=== PATIENT | male | born 1960 ===

== ENCOUNTER 2017-04-29 19:35 | Emergency (ER) | payer MEDICARE, MEDICAID ==
[2017-04-29 19:35] VITALS: BMI 34.9
[2017-04-29 19:48] VITALS: RESP 17; TEMP 97.8; O2SAT 100
--- NOTE | 2017-04-29 20:23 | ED PDOC ---
Lower Extremity Pain/Injury Time Seen by Provider: 04/29/17 20:13 Chief Complaint (Nursing): Lower Extremity Problem/Injury Chief Complaint (Provider): Toe pain and "passed out" History Per: Patient Additional Complaint(s): 56yo M with PMHx ESRD, HTN, HLD, right foot ulcer, recurrent DVT presents to ED for evaluation of right toe stump pain and bleeding s/p a near syncopal episode. Pt reports he felt very weak and almost passed out. Pt notes that he never lost consciousness and did not fall to floor, but he struck his toe against table leg. pt underwent right great toe amputation 3 months ago, site started bleeding. Pt at this time appears pale, reports mild dizziness. No chest pain or SOB Currently on Levemir 32u BID and Humalog 22u ACTID. HD with left AV fistula T/ / at Dialysis center in [place]. PMHx: as above FHx: DM SHx: toe amputation 2011, angioplasty 2014 Social hx: denies smoking, EtOH, drugs Allergies: NKDA PMD: Clinic Follows with podiatry Dr. Delacruz at [place] Follows with Nephrology Dr. Nick Past Medical History Reviewed: Historical Data, Nursing Documentation, Vital Signs Vital Signs: Last Vital Signs Temp 97.8 F 04/29/17 19:39 Pulse 84 04/29/17 19:39 Resp 17 04/29/17 19:39 BP 85/33 L 04/29/17 19:39 Pulse Ox 100 04/29/17 19:39 - Medical History PMH: Anemia, Diabetes (type I and II), Deep Vein Thrombosis, HTN, Hypercholesterolemia, Chronic Kidney Disease - Surgical History Other surgeries: right great toe amputation, left 5th toe amputation - Family History Family History: States: Unknown Family Hx, Diabetes - Living Arrangements Living Arrangements: Alone - Social History Current smoker - smoking cessation education provided: No Alcohol: None Drugs: Denies - Home Medications Home Medications: Ambulatory Orders Medication Instructions Recorded Brimonidine 0.2% [Alphagan 0.2% 1 drop EACHEYE TID 03/24/16 Opht] Latanoprost [Xalatan] 1 drop EACHEYE HS 03/24/16 amLODIPine [Norvasc] 10 mg PO DAILY 03/24/16 Atorvastatin [Lipitor] 80 mg PO HS 01/31/17 B Complex W-C No.20/Folic Acid 1 cap PO DAILY 01/31/17 [Nephrocaps Softgel] Dorzolamide 2%/Timolol 0.5% 1 drop EACHEYE BID 01/31/17 [Cosopt 2%-0.5% Opht] Etyll-2-Rtyp Ethyl Esters 1 GM 1 gm PO QID 01/31/17 [Lovaza] Sevelamer Carbonate [Renvela] 2,400 mg PO TID 01/31/17 Torsemide [Demadex] 5 mg PO DAILY 01/31/17 acetaZOLAMIDE [Diamox 250 mg Tab] 250 mg PO BID 01/31/17 Apixaban [Eliquis] 5 mg PO BID #60 tab 02/09/17 Clopidogrel [Plavix] 75 mg PO DAILY #30 tab 02/09/17 Insulin Detemir [Levemir] 20 units SC AMHS vial 02/09/17 Insulin Lispro [humALOG] 10 unit SC ACTID #0 02/09/17 Lactobacillus Acidophilus [Bacid 1 cap PO BID cap 02/09/17 Acidophilus] - Allergies Allergies/Adverse Reactions: Allergies Allergy/AdvReac Type Severity Reaction Status Date / Time No Known Allergies Allergy Verified 04/29/17 19:48 Review of Systems ROS Statement: Except As Marked, All Systems Reviewed And Found Negative Constitutional: Positive for: Weakness Neurological: Positive for: Dizziness Physical Exam - Reviewed Nursing Documentation Reviewed: Yes Vital Signs Reviewed: Yes - Physical Exam Appears: Positive for: Well, Non-toxic, No Acute Distress Head Exam: Positive for: ATRAUMATIC, NORMAL INSPECTION, NORMOCEPHALIC Skin: Positive for: Normal Color, Warm, DRY Eye Exam: Positive for: EOMI, Normal appearance, PERRL ENT: Positive for: Normal ENT Inspection Neck: Positive for: Normal, Painless ROM Cardiovascular/Chest: Positive for: Regular Rate, Rhythm Respiratory: Positive for: CNT, Normal Breath Sounds Gastrointestinal/Abdominal: Positive for: Normal Exam, Bowel Sounds, Soft Back: Positive for: Normal Inspection Extremity: Positive for: Other (right great toe amputated, stup witrhout any active bleeding at this time. no laceration noted. no abrasion. ) Neurologic/Psych: Positive for: Alert, Oriented - Laboratory Results Result Diagrams: 04/29/17 20:34 04/29/17 20:34 - ECG O2 Sat by Pulse Oximetry: 100 Medical Decision Making Medical Decision Making: Pt placed on skein winder. P: 78 BP: 138/83 EKG interpreted and cleared by ED MD Diagnostics ordered Labs resulted and reviewed with Pt who demonstrated full understanding. Tele-obs advised; however, Pt declined. Pt reports feeling well and would like to go home. Pt advised that further evaluation of near syncopal episode would be beneficial ; however, Pt again declined. Pt made aware of dangers of going home at this time and agreed to sign out AMA Disposition - Clinical Impression Clinical Impression: Near syncope - Patient ED Disposition Is Patient to be Admitted: No - Disposition Disposition: Against Medical Advice Disposition Time: 01:30 Condition: FAIR Instructions: Near Syncope (ED) Forms: [facility] (Ecuadorean), [facility] ED AMA
[2017-04-29 21:10] LABS: BASO # 0.1 K/uL (0.0-0.2); BASO % 0.6 % (0.0-2.0); EOS # 0.2 K/uL (0.0-0.7); EOS % 1.9 % (0.0-4.0); HEMOGLOBIN 9.9 g/dL (12.0-18.0); LYMPH # 2.8 K/uL (1.0-4.3); LYMPH % 25.6 % (20.0-40.0); MEAN CELL VOLUME 86.4 fl (80.0-94.0); MEAN CORPUSCULAR HEMOGLOBIN 27.3 pg (27.0-31.0); MEAN CORPUSCULAR HGB CONC 31.5 g/dL (33.0-37.0); MEAN PLATELET VOLUME 9.6 fl (7.2-11.7); MONO # 0.9 K/uL (0.0-0.8); MONO % 8.3 % (0.0-10.0); NEUT % 63.6 % (50.0-75.0); NRBC % 0.2 % (0.0-0.0); RBC 3.64 Mil/uL (4.40-5.90); RED CELL DISTRIBUTION WIDTH 17.2 % (11.5-14.5)
[2017-04-29 21:27] LABS: ALB/GLOB RATIO 1.2 (1.0-2.1); ALBUMIN 4.5 g/dL (3.5-5.0); CALCIUM 8.3 mg/dL (8.4-10.2)
[2017-04-29 21:34] LABS: TROPONIN I 0.021 ng/mL (0.00-0.120)
[2017-04-30 00:19] VITALS: BP 138/83; PULSE 78
--- NOTE | 2017-04-30 08:34 | RAD ---
PROCEDURE: CHEST RADIOGRAPH, 1 VIEW HISTORY: med screening COMPARISON: Frontal chest radiograph 01/31/2017 FINDINGS: LUNGS: Inspiratory volume appears diminished. This appears to result in crowding of the right medial basilar bronchovascular markings with no definitive infiltrate appreciated bilaterally. PLEURA: No pneumothorax or pleural fluid seen. CARDIOVASCULAR: Normal. OSSEOUS STRUCTURES: No significant abnormalities. VISUALIZED UPPER ABDOMEN: Normal. OTHER FINDINGS: None. IMPRESSION: Diminished inspiratory volumes with medial basilar bronchovascular [place] crowding at right. No definitive infiltrate or pleural effusion. Examination otherwise stable in the interval.
--- NOTE | 2017-04-30 18:25 | CARD ---
APPROVED REPORT EKG Measurement Heart [id number] <Conclusion> Normal sinus rhythm Normal ECG
== END 2017-04-30 00:19 | disposition home or self-care (01) ==
LOC: H.ER 19:35
DX: M79.674 Pain in right toe(s) (principal); I12.9 Hypertensive chronic kidney disease with stage 1 through stage 4 chronic kidney disease, or unspecified chronic kidney disease; Z79.01 Long term (current) use of anticoagulants; Z79.4 Long term (current) use of insulin; Z86.718 Personal history of other venous thrombosis and embolism; Z89.411 Acquired absence of right great toe; R42 Dizziness and giddiness; E78.00 Pure hypercholesterolemia, unspecified

== ENCOUNTER 2017-05-05 15:13 | Emergency (ER) | payer MEDICARE, MEDICAID ==
[2017-05-05 15:13] VITALS: BMI 34.9
[2017-05-05 15:42] VITALS: O2SAT 98
--- NOTE | 2017-05-05 16:19 | ED PDOC ---
Syncope/Near Syncope/Dizziness Time Seen by Provider: 05/05/17 15:37 Chief Complaint (Nursing): Weakness/Neurological Deficit Chief Complaint (Provider): weakness History Per: Patient Additional Complaint(s): 56yo M with PMHx ESRD, HTN, HLD, right foot ulcer, recurrent DVT presents to ED for evaluation of right toe stump pain and bleeding s/p a near syncopal episode. Pt reports he felt very weak and almost passed out. Pt notes that he never lost consciousness and did not fall to floor, but he struck his toe against table leg. pt underwent right great toe amputation 3 months ago, site started bleeding. Pt at this time appears pale, reports mild dizziness. No chest pain or SOB Currently on Levemir 32u BID and Humalog 22u ACTID. HD with left AV fistula T/ / at Dialysis center in [place]. PMHx: as above FHx: DM SHx: toe amputation 2011, angioplasty 2014 Social hx: denies smoking, EtOH, drugs Allergies: NKDA PMD: Clinic Follows with podiatry Dr. Delacruz at [facility] Follows with Nephrology Dr. Nick referred by PMD for body weakness. low hgb 7.7 05/03/17.pt had dialysis today . diayllar[facility] bird-sat. Past Medical History Reviewed: Historical Data, Nursing Documentation, Vital Signs Vital Signs: Last Vital Signs Temp 99.1 F 05/05/17 15:39 Pulse 96 H 05/05/17 15:39 Resp 22 05/05/17 15:39 BP 95/62 L 05/05/17 15:39 Pulse Ox 98 05/05/17 15:39 - Medical History PMH: Anemia, Diabetes (type I and II), Deep Vein Thrombosis, HTN, Hypercholesterolemia, Chronic Kidney Disease - Family History Family History: States: Unknown Family Hx, Diabetes - Living Arrangements Living Arrangements: With Family - Social History Current smoker - smoking cessation education provided: No Ex-Smoker (has not smoked in the last 12 months): Yes Alcohol: None Drugs: Denies - Home Medications Home Medications: Ambulatory Orders Medication Instructions Recorded Brimonidine 0.2% [Alphagan 0.2% 1 drop EACHEYE TID 03/24/16 Opht] Latanoprost [Xalatan] 1 drop EACHEYE HS 03/24/16 Dorzolamide 2%/Timolol 0.5% 1 drop EACHEYE BID 01/31/17 [Cosopt 2%-0.5% Opht] Torsemide [Demadex] 5 mg PO DAILY 01/31/17 Apixaban [Eliquis] 2.5 mg PO BID 05/05/17 Atorvastatin [Lipitor] 20 mg PO HS 05/05/17 B Complex W-C No.20/Folic Acid 1 mg PO DAILY 05/05/17 [Virt-Caps Softgel] Calcium Acetate [Phoslo] 1 tab PO TID 05/05/17 Carvedilol [Coreg] 12.5 mg PO DAILY 05/05/17 Clopidogrel [Plavix] 75 mg PO DAILY 05/05/17 Insulin Aspart [Novolog Flexpen] 10 units SC TID 05/05/17 Insulin Detemir [Levemir] 20 units SC BID 05/05/17 [place]-3 Fatty Acids/Fish Oil [Eql 2 cap PO BID 05/05/17 [place]-3 Fish Oil 1,000 mg] Sevelamer Carbonate [Renvela] 2 tab PO TID 05/05/17 Sodium Bicarbonate Tab [Sodium 650 mg PO TID 05/05/17 Bicarbonate Tab] amLODIPine [Norvasc] 2.5 mg PO DAILY 05/05/17 - Allergies Allergies/Adverse Reactions: Allergies Allergy/AdvReac Type Severity Reaction Status Date / Time No Known Allergies Allergy Verified 04/29/17 19:48 Review of Systems ROS Statement: Except As Marked, All Systems Reviewed And Found Negative Neurological: Positive for: Dizziness Physical Exam - Reviewed Nursing Documentation Reviewed: Yes Vital Signs Reviewed: Yes - Physical Exam Appears: Positive for: Well, Non-toxic, No Acute Distress Head Exam: Positive for: ATRAUMATIC, NORMAL INSPECTION, NORMOCEPHALIC Skin: Positive for: Normal Color, Warm, DRY Eye Exam: Positive for: EOMI, Normal appearance, PERRL ENT: Positive for: Normal ENT Inspection Neck: Positive for: Normal, Painless ROM Cardiovascular/Chest: Positive for: Regular Rate, Rhythm Respiratory: Positive for: CNT, Normal Breath Sounds Gastrointestinal/Abdominal: Positive for: Normal Exam, Bowel Sounds, Soft Back: Positive for: Normal Inspection Extremity: Positive for: Normal ROM Neurologic/Psych: Positive for: Alert, Oriented - Laboratory Results Result Diagrams: 05/05/17 17:00 05/05/17 17:00 - ECG O2 Sat by Pulse Oximetry: 98 Medical Decision Making Medical Decision Making: Pt placed on cardiac moitor. labs resulted and reviewed with Pt who demonstrated full understanding. Pt reprots feeling well and asking to go home at this time Spoke to Dr. Godinez, who agreed Pt can be discharge with hgb 8.4 Disposition - Clinical Impression Clinical Impression: Anemia - Patient ED Disposition Is Patient to be Admitted: No - Disposition Disposition: Routine/Home Disposition Time: 17:00 Condition: STABLE Instructions: Anemia (ED) Forms: [facility] (Cape Verdean)
[2017-05-05 17:18] LABS: BASO # 0.1 K/uL (0.0-0.2); BASO % 0.5 % (0.0-2.0); EOS # 0.2 K/uL (0.0-0.7); HEMOGLOBIN 8.4 g/dL (12.0-18.0); LYMPH # 2.2 K/uL (1.0-4.3); LYMPH % 20.8 % (20.0-40.0); MEAN CELL VOLUME 89.2 fl (80.0-94.0); MEAN CORPUSCULAR HGB CONC 33.7 g/dL (33.0-37.0); MEAN PLATELET VOLUME 8.6 fl (7.2-11.7); MONO % 9.9 % (0.0-10.0); NEUT # 6.9 K/uL (1.8-7.0); NEUT % 66.8 % (50.0-75.0); RBC 2.81 Mil/uL (4.40-5.90); WHITE BLOOD COUNT 10.4 K/uL (4.8-10.8)
[2017-05-05 17:31] LABS: ALB/GLOB RATIO 1.1 (1.0-2.1); ALBUMIN 4.2 g/dL (3.5-5.0); BLOOD UREA NITROGEN 32 mg/dl (9-20); CALCIUM 8.8 mg/dL (8.4-10.2); GFR AFRICAN-AMERICAN 10; GFR NON-AFRICAN AMERICAN 8
[2017-05-05 17:32] LABS: ALT/SGPT 23 U/L (21-72); AST/SGOT 19 U/L (17-59)
[2017-05-05 17:57] LABS: PARTIAL THROMBOPLASTIN TIME 28.5 Seconds (25.6-37.1)
[2017-05-05 19:15] VITALS: BP 120/78; PULSE 78; RESP 18; TEMP 98
[2017-05-05 21:45] LABS: INR 0.92 (0.92-1.08); PROTHROMBIN TIME 10.3 SECONDS (9.7-12.2)
--- NOTE | 2017-05-06 09:40 | RAD ---
PROCEDURE: CHEST RADIOGRAPH, 1 VIEW HISTORY: med screening COMPARISON: Comparison chest 04/29/2017 FINDINGS: LUNGS: Poor inspiration with low lung volumes, crowded bronchovascular markings and mild bibasilar atelectasis. PLEURA: No pneumothorax or pleural fluid seen. CARDIOVASCULAR: Normal. OSSEOUS STRUCTURES: No significant abnormalities. VISUALIZED UPPER ABDOMEN: Normal. OTHER FINDINGS: None. IMPRESSION: Poor inspiration with low lung volumes, crowded bronchovascular markings and mild bibasilar atelectasis.
--- NOTE | 2017-05-07 13:01 | CARD ---
APPROVED REPORT EKG Measurement Heart [id number] <Conclusion> Normal sinus rhythm Normal ECG
== END 2017-05-05 19:15 | disposition home or self-care (01) ==
LOC: H.ER 15:13
DX: D64.9 Anemia, unspecified (principal); I12.9 Hypertensive chronic kidney disease with stage 1 through stage 4 chronic kidney disease, or unspecified chronic kidney disease; N18.9 Chronic kidney disease, unspecified; Z86.718 Personal history of other venous thrombosis and embolism; Z87.891 Personal history of nicotine dependence; Z79.4 Long term (current) use of insulin; E78.00 Pure hypercholesterolemia, unspecified; Z79.01 Long term (current) use of anticoagulants

== ENCOUNTER 2018-01-17 15:16 | Inpatient (IN) | payer MEDICARE, MEDICAID ==
[2018-01-17 15:16] VITALS: BMI 34.9
--- NOTE | 2018-01-17 16:52 | ED PDOC ---
Syncope/Near Syncope/Dizziness Time Seen by Provider: 01/17/18 15:45 Chief Complaint (Nursing): Dizziness/Lightheaded Chief Complaint (Provider): Weakness History Per: Patient, Family History/Exam Limitations: no limitations Onset/Duration Of Symptoms: Days (2) Current Symptoms Are (Timing): Still Present Additional Complaint(s): 57yo male, with history of diabetes, ESRD and on dialysis (, and ), hypertension, and high cholesterol, comes to ER accompanied by his for evaluation of "being unable to walk." Per , 2 days ago, while at dinner, she noted the patient "was not there" and seemed confused; patient states he had multiple episodes of vomiting that day as well. states the patient urinated on himself today and states he is unwell. Patient was able to complete his dialysis session today. Otherwise, no fever, chills, or head injury. no seizure like activity. PMD: [facility] Past Medical History Reviewed: Historical Data, Nursing Documentation, Vital Signs Vital Signs: Last Vital Signs Temp 98.3 F 01/17/18 15:52 Pulse 84 01/17/18 15:52 Resp 16 01/17/18 15:52 BP 135/83 01/17/18 15:52 Pulse Ox 96 01/17/18 15:52 - Medical History PMH: Anemia, Diabetes (type I and II), Deep Vein Thrombosis, HTN, Hypercholesterolemia, Chronic Kidney Disease - Surgical History Surgical History: No Surg Hx - Family History Family History: States: Unknown Family Hx, Diabetes - Social History Current smoker - smoking cessation education provided: No Alcohol: None Drugs: Denies - Home Medications Home Medications: Ambulatory Orders Medication Instructions Recorded RX: Brimonidine 0.2% [Alphagan 1 drop EACHEYE TID 03/24/16 0.2% Opht] RX: Latanoprost [Xalatan] 1 drop EACHEYE HS 03/24/16 RX: Dorzolamide 2%/Timolol 0.5% 1 drop EACHEYE BID 01/31/17 [Cosopt 2%-0.5% Opht] RX: Torsemide [Demadex] 5 mg PO DAILY 01/31/17 Apixaban [Eliquis] 2.5 mg PO BID 05/05/17 Atorvastatin [Lipitor] 20 mg PO HS 05/05/17 B Complex W-C No.20/Folic Acid 1 mg PO DAILY 05/05/17 [Virt-Caps Softgel] Carvedilol [Coreg] 12.5 mg PO DAILY 05/05/17 Clopidogrel [Plavix] 75 mg PO DAILY 05/05/17 Insulin Aspart [Novolog Flexpen] 10 units SC TID 05/05/17 [place]-3 Fatty Acids/Fish Oil [Eql 2 cap PO BID 05/05/17 [place]-3 Fish Oil 1,000 mg] RX: Calcium Acetate [Phoslo] 1 tab PO TID 05/05/17 RX: Insulin Detemir [Levemir] 20 units SC BID 05/05/17 Sevelamer Carbonate [Renvela] 2 tab PO TID 05/05/17 Sodium Bicarbonate Tab 650 mg PO TID 05/05/17 amLODIPine [Norvasc] 2.5 mg PO DAILY 05/05/17 Apixaban [Eliquis] 5 mg PO Q12 01/17/18 B Complex W-C No.20/Folic Acid 40 mg PO DAILY 01/17/18 [Renal Caps Softgel] Carvedilol [Coreg] 12.5 mg PO Q12 01/17/18 Clopidogrel [Plavix] 75 mg PO DAILY 01/17/18 Dorzolamide HCl/Timolol Maleat 22.3 mg BOTHEYES BID 01/17/18 [Dorzolamide-Timolol Eye Drops] Metoprolol Tartrate [Lopressor] 50 mg PO BID 01/17/18 Pantoprazole Sodium [Protonix] 40 mg PO AC 01/17/18 RX: Simvastatin 10 mg PO DAILY 01/17/18 - Allergies Allergies/Adverse Reactions: Allergies Allergy/AdvReac Type Severity Reaction Status Date / Time No Known Allergies Allergy Verified 01/17/18 15:52 Review of Systems ROS Statement: Except As Marked, All Systems Reviewed And Found Negative Constitutional: Positive for: Malaise. Negative for: Fever, Chills Cardiovascular: Negative for: Chest Pain Respiratory: Negative for: Shortness of Breath Gastrointestinal: Positive for: Vomiting (2 days ago). Negative for: Abdominal Pain Genitourinary Male: Positive for: Incontinence (urine incontinence x 1) Neurological: Positive for: Confusion (2 days ago), Dizziness Physical Exam - Reviewed Nursing Documentation Reviewed: Yes Vital Signs Reviewed: Yes - Physical Exam Appears: Positive for: Non-toxic Head Exam: Positive for: ATRAUMATIC, NORMAL INSPECTION, NORMOCEPHALIC Skin: Positive for: Normal Color Eye Exam: Positive for: Normal appearance, EOMI, PERRL ENT: Positive for: Normal ENT Inspection, Other (l eye cataract surgical) Neck: Positive for: Normal, Supple Cardiovascular/Chest: Positive for: Regular Rate, Rhythm Respiratory: Positive for: Normal Breath Sounds Gastrointestinal/Abdominal: Positive for: Normal Exam, Soft Back: Positive for: Normal Inspection Extremity: Positive for: Normal ROM. Negative for: Pedal Edema Neurologic/Psych: Positive for: Alert, Oriented. Negative for: Motor/Sensory Deficits, Aphasia, Facial Droop - Laboratory Results Result Diagrams: 01/17/18 17:10 01/17/18 17:10 - ECG O2 Sat by Pulse Oximetry: 96 (RA) Pulse Ox Interpretation: Normal Medical Decision Making Medical Decision Making: Impression: Generalized malaise, unsteady gait rule out cerebellar stroke, infection Plan: * Labs * CT Head w/o contrast * Urinalysis 19:15 Labs reviewed, patient with elevated BUN and creatinine; prior records reviewed, patient with chronically elevated levels. CT Head FINDINGS: HEMORRHAGE: No intracranial hemorrhage. BRAIN: Diffuse atrophy with prominence of the ventricles and sulci noted. No mass effect or edema. Intracranial atherosclerotic calcifications. Bilateral basal ganglia calcifications. The dawson-white matter differentiation appears intact. Please note that MRI with diffusion imaging is more sensitive in the detection of acute ischemic event. VENTRICLES: No hydrocephalus. CALVARIUM: Unremarkable. PARANASAL SINUSES: Unremarkable as visualized. No significant inflammatory changes. MASTOID AIR CELLS: Unremarkable as visualized. No inflammatory changes. OTHER FINDINGS: Bilateral curvilinear hyperdensities/calcifications, bilateral lateral superior orbits re-identified. IMPRESSION: No acute intracranial pathology identified. Findings as above. 1930 EKG NSR 81 bpm qt 418 pt given meclizine with no real change in clinical state labs reviewed pt only makes small amount of urine so unable to get sample, however the small amount that was there was bloody. will need to get ua as it looks cloudy and bloody, so will prob need iv abx. pt will need workup for dizziness/unstable gait. will need MRI to rule out cerebellar stroke as inpatient. pt currently on eliquis as per records. called Dr. Cee neurology - he agree with plan and will see pt perla. agrees brayan babcock. Hospitalist Dr Alvares aware of admission pt and family aware of plan ------- Scribe Attestation: Documented by Jes Andrade, acting as a scribe for Ed Lopez MD. Provider Scribe Attestation: All medical record entries made by the Scribe were at my direction and personally dictated by me. I have reviewed the chart and agree that the record accurately reflects my personal performance of the history, physical exam, medical decision making, and the department course for this patient. I have also personally directed, reviewed, and agree with the discharge instructions and disposition. Disposition - Clinical Impression Clinical Impression: Dizziness of unknown cause - Patient ED Disposition Is Patient to be Admitted: Yes - Disposition Disposition Time: 19:45 Condition: STABLE
[2018-01-17 17:24] LABS: BASO # 0.1 K/uL (0.0-0.2); BASO % 0.9 % (0.0-2.0); EOS # 0.2 K/uL (0.0-0.7); EOS % 1.9 % (0.0-4.0); HEMOGLOBIN 12.7 g/dL (12.0-18.0); LYMPH # 1.6 K/uL (1.0-4.3); LYMPH % 13.2 % (20.0-40.0); MEAN CELL VOLUME 92.9 fl (80.0-94.0); MEAN CORPUSCULAR HEMOGLOBIN 29.9 pg (27.0-31.0); MEAN CORPUSCULAR HGB CONC 32.1 g/dL (33.0-37.0); MEAN PLATELET VOLUME 9.1 fl (7.2-11.7); MONO # 1.1 K/uL (0.0-0.8); MONO % 8.8 % (0.0-10.0); NEUT # 9.1 K/uL (1.8-7.0); NEUT % 75.2 % (50.0-75.0); RBC 4.24 Mil/uL (4.40-5.90); WHITE BLOOD COUNT 12.2 K/uL (4.8-10.8)
[2018-01-17 17:34] LABS: ALBUMIN 4.7 g/dL (3.5-5.0)
--- NOTE | 2018-01-17 17:44 | CT ---
Date of service: 01/17/2018 PROCEDURE: CT HEAD WITHOUT CONTRAST. HISTORY: dizziness COMPARISON: Noncontrast head CT performed 11/02/15 TECHNIQUE: Axial computed tomography images were obtained through the head/brain without intravenous contrast. Radiation dose: Total exam DLP = 831.95 mGy-cm. This CT exam was performed using one or more of the following dose reduction techniques: Automated exposure control, adjustment of the mA and/or kV according to patient size, and/or use of iterative reconstruction technique. FINDINGS: HEMORRHAGE: No intracranial hemorrhage. BRAIN: Diffuse atrophy with prominence of the ventricles and sulci noted. No mass effect or edema. Intracranial atherosclerotic calcifications. Bilateral basal ganglia calcifications. The dawson-white matter differentiation appears intact. Please note that MRI with diffusion imaging is more sensitive in the detection of acute ischemic event. VENTRICLES: No hydrocephalus. CALVARIUM: Unremarkable. PARANASAL SINUSES: Unremarkable as visualized. No significant inflammatory changes. MASTOID AIR CELLS: Unremarkable as visualized. No inflammatory changes. OTHER FINDINGS: Bilateral curvilinear hyperdensities/calcifications, bilateral lateral superior orbits re-identified. IMPRESSION: No acute intracranial pathology identified. Findings as above.
[2018-01-17] MEDS ORDERED: Potassium Chloride 20 mEq ER Tab PO ONE (19:12)
--- NOTE | 2018-01-17 23:19 | CP.PCM.HP ---
<Jim Cortes - Last Filed: 01/17/18 23:45> History of Present Illness - History of Present Illness History of Present Illness: CC: "mickey been dizzy for two days" HPI: 57 y/o male, with PMHx of IDDM, ESRD (on dialysis , , ), DVT, HTN, HLD, PAD, presents for evaluation of dizziness. Pt reports he was feeling well on Sunday during dinner, but in the middle of the night he woke up sweating, dizzy, and nauseous. He threw up at 2am on Sunday AM two times but episodes were NBNB. He went back to bed. The dizziness did not resolve. He reports it is worse when he walks and when he gets up. He reports that he fell over three times. Two times to the right, once to the left. He reports he feels as if he is on a boat when he ambulates. His symptoms have remained unchanged since onset. Underwent dialysis today, tolerated without issue. No longer complains of nausea and has been tolerating PO intake without issue. He denies any numbness/tingling. No fevers/chills. But pt does endorse urinary urgency, but without urinay symptoms. No other complaints. ROS: as per HPI, 12 systems reviewed. PMD: NHC, Augie Nephro PMHx: PAD, IDDM, HTN, ESRD, HLD, recurrent DVT Meds: as per med rec ALL: NKDA Psurghx: right hallux amputation, RLE bypass, left hallux amputation Social: denies etoh/tobacco/drug abuse Present on Admission - Present on Admission Any Indicators Present on Admission: Yes History of DVT/PE: Yes History of Uncontrolled Diabetes: Yes Urinary Catheter: No Decubitus Ulcer Present: No Past Patient History - Past Medical History & Family History Past Medical History?: Yes - Past Social History Smoking Status: Never Smoked Alcohol: None Drugs: Denies Home Situation {Lives}: With Family - CARDIAC Hx Hypercholesterolemia: Yes Hx Hypertension: Yes - PULMONARY Hx Respiratory Disorders: No - NEUROLOGICAL Hx Neurological Disorder: No - HEENT Hx HEENT Problems: Yes Hx Glaucoma: Yes - RENAL Hx Chronic Kidney Disease: Yes - ENDOCRINE/METABOLIC Hx Endocrine Disorders: Yes Hx Diabetes Mellitus Type 2: Yes - HEMATOLOGICAL/ONCOLOGICAL Hx Anemia: Yes - INTEGUMENTARY Hx Dermatological Problems: No - MUSCULOSKELETAL/RHEUMATOLOGICAL Hx Falls: No - GASTROINTESTINAL Hx Gastrointestinal Disorders: No - GENITOURINARY/GYNECOLOGICAL Hx Genitourinary Disorders: No - PSYCHIATRIC Hx Psychophysiologic Disorder: No Hx Substance Use: No - SURGICAL HISTORY Hx Surgeries: Yes Hx Angioplasty: Yes (august-2011) Other/Comment: amputation of 5th digit on left foot-2011(digit infection); right eye surgery x1 month ago (glaucoma) - ANESTHESIA Hx Anesthesia: Yes Hx Anesthesia Reactions: No Hx Malignant Hyperthermia: No Meds Allergies/Adverse Reactions: Allergies Allergy/AdvReac Type Severity Reaction Status Date / Time No Known Allergies Allergy Verified 01/17/18 15:52 Physical Exam - Constitutional Appears: Non-toxic, No Acute Distress - Head Exam Head Exam: ATRAUMATIC, NORMOCEPHALIC - Eye Exam Eye Exam: EOMI, Nystagmus (mild fasiculations noted ) Pupil Exam: PERRL - ENT Exam ENT Exam: Mucous Membranes Moist - Neck Exam Neck exam: Negative for: Lymphadenopathy - Respiratory Exam Respiratory Exam: Clear to Auscultation Bilateral, NORMAL BREATHING PATTERN. absent: Accessory Muscle Use, Rales, Rhonchi, Wheezes - Cardiovascular Exam Cardiovascular Exam: REGULAR RHYTHM, RRR, +S1, +S2. absent: Gallop, JVD, Rubs, Systolic Murmur - GI/Abdominal Exam GI & Abdominal Exam: Normal Bowel Sounds, Soft. absent: Distended, Rigid, Tenderness - Extremities Exam Extremities exam: Negative for: normal inspection Additional comments: b/l lower ext hyperpigmentation, right LE graft scars - Neurological Exam Neurological exam: Alert, CN II-XII Intact, Oriented x3 - Expanded Neurological Exam Expanded Neurological exam: Ataxia Cerebellar Function: Finger to Nose: Abnormal Left, Heel to Taylor: Normal, Romberg: Normal Upper motor neuron: Babinski Sign: Normal, Bandar Neglect: Normal, Pronator Drift: Normal, Sensory Extinction: Normal Neuro motor strength exam: Left Upper Extremity: 5, Right Upper Extremity: 5, Left Lower Extremity: 5, Right Lower Extremity: 5 Coma Scale Eye Opening: SPONTANEOUS Coma Scale Motor Response: OBEYS COMMANDS Coma Scale Verbal: Oriented Coma Scale Total: 15 - Psychiatric Exam Psychiatric exam: Normal Affect, Normal Mood Results - Vital Signs Recent Vital Signs: Last Vital Signs Temp 98.3 F 01/17/18 15:52 Pulse 84 01/17/18 15:52 Resp 16 01/17/18 15:52 BP 135/83 01/17/18 15:52 Pulse Ox 96 01/17/18 22:01 - Labs Result Diagrams: 01/17/18 17:10 01/17/18 17:10 Labs: Laboratory Results - last 24 hr 01/17/18 01/17/18 17:10 17:10 WBC 12.2 H RBC 4.24 L Hgb 12.7 D Hct 39.4 MCV 92.9 D MCH 29.9 MCHC 32.1 L RDW 19.0 H Plt Count 164 MPV 9.1 Neut % (Auto) 75.2 H Lymph % (Auto) 13.2 L [place] % (Auto) 8.8 Eos % (Auto) 1.9 Baso % (Auto) 0.9 Neut # (Auto) 9.1 H Lymph # (Auto) 1.6 [place] # (Auto) 1.1 H Eos # (Auto) 0.2 Baso # (Auto) 0.1 Sodium 140 Potassium 3.4 L Chloride 91 L Carbon Dioxide 32 H Anion Gap 20 BUN 26 H Creatinine 6.7 H Est GFR ( Amer) 10 Est GFR (Non-Af Amer) 9 Random Glucose 201 H Calcium 9.0 Total Bilirubin 0.7 AST 29 ALT 20 L Alkaline Phosphatase 117 Total Protein 9.7 H Albumin 4.7 Globulin 5.0 H Albumin/Globulin Ratio 1.0 Assessment & Plan - Assessment and Plan (Free Text) Assessment: 57 y/o male with PMHx of ESRD, IDDM, PAD, Recurrent DVT, HTN, HLD admitted for intractable dizziness. Plan: 1) Dizziness -Head CT negative -Brain MRI/MRA pending -aspirin 81 given in ED -Antivert given in ED -orthostatic BPs -lipid panel pending -neuro consult pending 2) Dysuria -urine Cx pending -UA pending -c/w rocephin 1gm QD -repeat AM labs (leukocytosis) 3) ESRD on dialysis T, , -Nephro consult pending 4) IDDM -hemoglobin A1C pending -lispro correction scale medium dose -resume home meds -monitor 5) HTN -stable -c/w home meds 6) Recurrent DVT -resume Eliquis 5mg 7) Prophylaxis -Eliquis 5mg QD 8) Diet -renal 9) Code status -full code <Rajeev Ovalle P - Last Filed: 01/18/18 07:00> Results - Vital Signs Recent Vital Signs: Last Vital Signs Temp 98.0 F 01/18/18 05:10 Pulse 78 01/18/18 05:10 Resp 18 01/18/18 05:10 BP 136/74 01/18/18 05:10 Pulse Ox 100 01/18/18 05:10 - Labs Result Diagrams: 01/17/18 17:10 01/17/18 17:10 Labs: Laboratory Results - last 24 hr 01/17/18 01/17/18 01/17/18 17:10 17:10 17:10 WBC 12.2 H RBC 4.24 L Hgb 12.7 D Hct 39.4 MCV 92.9 D MCH 29.9 MCHC 32.1 L RDW 19.0 H Plt Count 164 MPV 9.1 Neut % (Auto) 75.2 H Lymph % (Auto) 13.2 L [place] % (Auto) 8.8 Eos % (Auto) 1.9 Baso % (Auto) 0.9 Neut # (Auto) 9.1 H Lymph # (Auto) 1.6 [place] # (Auto) 1.1 H Eos # (Auto) 0.2 Baso # (Auto) 0.1 Sodium 140 Potassium 3.4 L Chloride 91 L Carbon Dioxide 32 H Anion Gap 20 BUN 26 H Creatinine 6.7 H Est GFR ( Amer) 10 Est GFR (Non-Af Amer) 9 Random Glucose 201 H Calcium 9.0 Total Bilirubin 0.7 AST 29 ALT 20 L Alkaline Phosphatase 117 Total Protein 9.7 H Albumin 4.7 Globulin 5.0 H Albumin/Globulin Ratio 1.0 Triglycerides 675 H Cholesterol 274 H LDL Cholesterol Direct 91 HDL Cholesterol 31 Urine Color Urine Clarity Urine pH Ur Specific [place] Urine Protein Urine Glucose (UA) Urine Ketones Urine Blood Urine Nitrate Urine Bilirubin Urine Urobilinogen Ur Leukocyte Esterase Urine RBC (Auto) Urine WBC Clumps (Auto) Urine Microscopic WBC 01/17/18 22:57 WBC RBC Hgb Hct MCV MCH MCHC RDW Plt Count MPV Neut % (Auto) Lymph % (Auto) [place] % (Auto) Eos % (Auto) Baso % (Auto) Neut # (Auto) Lymph # (Auto) [place] # (Auto) Eos # (Auto) Baso # (Auto) Sodium Potassium Chloride Carbon Dioxide Anion Gap BUN Creatinine Est GFR ( Amer) Est GFR (Non-Af Amer) Random Glucose Calcium Total Bilirubin AST ALT Alkaline Phosphatase Total Protein Albumin Globulin Albumin/Globulin Ratio Triglycerides Cholesterol LDL Cholesterol Direct HDL Cholesterol Urine Color Yellow Urine Clarity Turbid Urine pH 6.0 Ur Specific [place] 1.009 Urine Protein >=500 Urine Glucose (UA) Neg Urine Ketones Negative Urine Blood Large Urine Nitrate Negative Urine Bilirubin Negative Urine Urobilinogen 0.2-1.0 Ur Leukocyte Esterase Large Urine RBC (Auto) 1991 H Urine WBC Clumps (Auto) Many H Urine Microscopic WBC 88683 H Attending/Attestation - Attestation I have personally seen and examined this patient.: Yes I have fully participated in the care of the patient.: Yes I have reviewed all pertinent clinical information: Yes Notes (Text): Assessment Ataxia, secondary fall without injury ESRD on hd TTS PVD/DVT on Eliquis IDDM Dysuria Plan MRI/MRA Emperic Rocephin Home meds Echo PT/OT Gi/DVT prophylaxis Neurology consult ASA
[2018-01-17 23:43] LABS: HDL CHOLESTEROL 31 MG/DL (30-70)
[2018-01-17 23:54] LABS: LDL CHOLESTEROL 91 mg/dL (0-129)
[2018-01-18 01:40] LABS: URINE BILIRUBIN NEGATIVE (NEGATIVE); URINE BLOOD LARGE (NEGATIVE); URINE CLARITY TURBID (Clear); URINE COLOR YELLOW (YELLOW); URINE GLUCOSE (UA) NEG (Normal); URINE LEUKOCYTE ESTERASE LARGE Leu/uL (Negative); URINE PROTEIN >=500 mg/dL (NEGATIVE); URINE UROBILINOGEN 0.2-1.0 mg/dL (0.2-1.0); WBC CLUMPS MANY /hpf
[2018-01-18] MEDS ORDERED: Pneumococcal 23-Valent Vaccine IM ONE ×2 (06:00→09:00)
[2018-01-18] MEDS ORDERED: Patient's Own Med (Torsemide [Demadex] 5 mg) PO SCH (09:00)
[2018-01-18] MEDS ORDERED: Insulin Detemir 100 Units/ml Inj SC SCH ×2 (09:00→17:00)
[2018-01-18] MEDS ORDERED: [UNRECOGNIZED DRUG - REMARK] PO SCH (09:00)
[2018-01-18] MEDS ORDERED: [UNRECOGNIZED DRUG - REMARK] PO SCH (09:00)
--- NOTE | 2018-01-18 09:30 | RAD ---
Date of service: 01/17/2018 HISTORY: ataxia COMPARISON: Portable chest 05/05/2017. FINDINGS: LUNGS: Somewhat diminished history volume suggested. Exam is been captured in apical lordotic technique. No right-sided airspace disease identified. Difficult to capture medial left base due to prominent cardiac silhouette and obese body habitus. Left base likely clear clear though an element of airspace disease difficult to completely exclude at the retrocardiac space medially. PLEURA: No significant pleural effusion identified, no pneumothorax apparent. CARDIOVASCULAR: Stable cardiomediastinal silhouette. No pulmonary vascular congestion. OSSEOUS STRUCTURES: No significant abnormalities. VISUALIZED UPPER ABDOMEN: Normal. OTHER FINDINGS: None. IMPRESSION: Bilateral apices appear clear with no pathology appreciated in this apical lordotic portable chest radiograph. No right-sided infiltrate. Difficult exclude airspace disease the medial left base. No pulmonary vascular congestion. Stable cardiomediastinal silhouette.
[2018-01-18] MEDS: Multivitamin Vitamin B Complex (Nephro-Vite) Tab PO SCH (10:25)
[2018-01-18] MEDS: Brimonidine 0.2% 50 DROP/5 ML BOTTLE OS SCH ×3 (10:26→17:46)
--- NOTE | 2018-01-18 12:45 | CP.PCM.PN ---
<Channing Mayes - Last Filed: 01/18/18 12:43> Subjective - Date & Time of Evaluation Date of Evaluation: 01/18/18 Time of Evaluation: 12:43 - Subjective Subjective: 57 yo male with PMHx of IDDM, ESRD (on dialysis T, Th, ), DVT, HTN, HLD, PAD, presented to the ED for evaluation of dizziness. Seen and evaluated at bedside today, patient in NAD and AAOx3. States that he feels less dizzy today than yesterday and that he has been able to ambulate without feeling like he is going to fall. He denies any head and neck pain, denies N/V/F/C/SOB/CP and has no acute complaints today. Objective - Vital Signs/Intake and Output Vital Signs (last 24 hours): Temp Pulse Resp BP Pulse Ox 97.9 F 78 18 147/86 100 01/18/18 12:20 01/18/18 12:20 01/18/18 12:20 01/18/18 12:20 01/18/18 12:20 - Medications Medications: Current Medications Amlodipine Besylate (Norvasc) 2.5 mg PO DAILY [facility] Last Admin: 01/18/18 10:25 Dose: 2.5 mg Apixaban (Eliquis) 5 mg PO Q12 [facility]; Protocol Last Admin: 01/18/18 10:25 Dose: 5 mg Atorvastatin Calcium (Lipitor) 20 mg PO HS [facility] Brimonidine Tartrate (Alphagan 0.2% Opht) 1 drop OS TID [facility] Last Admin: 01/18/18 10:26 Dose: 1 drop Calcium Acetate (Phoslo) 667 mg PO TID [facility] Last Admin: 01/18/18 10:24 Dose: 667 mg Clopidogrel Bisulfate (Plavix) 75 mg PO DAILY [facility] Home Med (Dorzolamide 2%/Timolol 0.5% [Cosopt 2%-0.5% Opht]) 1 drop EACHEYE BID [facility] Ceftriaxone Sodium 1 gm/ (Sodium Chloride) 100 mls @ 100 mls/hr IVPB DAILY [facility]; Protocol Last Admin: 01/18/18 12:19 Dose: 100 mls/hr Insulin Detemir (Levemir) 25 units SC BID [facility] Latanoprost (Xalatan Opht) 1 drop OS HS [facility] Ondansetron HCl (Zofran Inj) 4 mg IVP Q6 PRN PRN Reason: Nausea/Vomiting Torsemide (Demadex) 5 mg PO DAILY [facility] Last Admin: 01/18/18 10:24 Dose: 5 mg Vitamin B Complex/Vit C/Folic Acid (Nephro-Madhav) 1 tab PO DAILY [facility] Last Admin: 01/18/18 10:25 Dose: 1 tab - Labs Labs: 01/17/18 17:10 01/17/18 17:10 - Constitutional Appears: Well, Non-toxic, No Acute Distress - Head Exam Head Exam: ATRAUMATIC, NORMOCEPHALIC - Eye Exam Eye Exam: EOMI, Nystagmus (mild fasiculations noted) Pupil Exam: PERRL - ENT Exam ENT Exam: Mucous Membranes Moist - Neck Exam Neck Exam: Full ROM. absent: Lymphadenopathy - Respiratory Exam Respiratory Exam: Clear to Ausculation Bilateral, NORMAL BREATHING PATTERN - Cardiovascular Exam Cardiovascular Exam: REGULAR RHYTHM, +S1, +S2 - GI/Abdominal Exam GI & Abdominal Exam: Soft, Normal Bowel Sounds - Extremities Exam Extremities Exam: Normal Capillary Refill. absent: Pedal Edema Additional comments: Right hallux previous amputation site well healed Left fifth ray resection site well healed No open lesions or wounds skin temp and turgor wnl pulses 2/4 palpable b/l - Neurological Exam Neurological Exam: Alert, Awake, Oriented x3 - Psychiatric Exam Psychiatric exam: Normal Affect, Normal Mood Assessment and Plan - Assessment and Plan (Free Text) Assessment: 57 y/o male with PMHx of ESRD, IDDM, PAD, Recurrent DVT, HTN, HLD admitted for intractable dizziness Plan: 1) Dizziness -Head CT negative -Brain MRI/MRA taken - read pending -orthostatic BPs -lipid panel - LDL and HDL w/n/l; triglycerides and cholesterol elevated -neuro consult Dr. Cee - marys appreciated 2) Dysuria -urine Cx - gram negative trino -UA - RBC 1990 - WBC clumps Many - Microscopic WBC 82360 -c/w rocephin 1gm - day #2 -repeat AM labs (leukocytosis) 3) ESRD on dialysis T, , -Nephro consult Dr. Collier - recs appreciated 4) IDDM -hemoglobin A1C - 8.2 -Levemir 25 g BID -resume home meds -monitor 5) HTN -stable -c/w home meds 6) Hx of glaucoma -c/w Latanaprost 6) Recurrent DVT -resume Eliquis 5mg 7) Prophylaxis -Eliquis 5mg QD 8) Diet -renal 9) Code status -full code <Radha Cordon - Last Filed: 01/18/18 17:17> Objective - Vital Signs/Intake and Output Vital Signs (last 24 hours): Temp Pulse Resp BP Pulse Ox 98.1 F 71 16 140/73 93 L 01/18/18 16:02 01/18/18 16:02 01/18/18 16:02 01/18/18 16:02 01/18/18 16:02 Intake and Output: 01/18/18 01/18/18 06:59 18:59 Output Total 0 Balance 0 - Medications Medications: Current Medications Amlodipine Besylate (Norvasc) 2.5 mg PO DAILY [facility] Last Admin: 01/18/18 10:25 Dose: 2.5 mg Apixaban (Eliquis) 5 mg PO Q12 [facility]; Protocol Last Admin: 01/18/18 10:25 Dose: 5 mg Atorvastatin Calcium (Lipitor) 20 mg PO HS [facility] Brimonidine Tartrate (Alphagan 0.2% Opht) 1 drop OS TID [facility] Last Admin: 01/18/18 14:36 Dose: 1 drop Calcium Acetate (Phoslo) 667 mg PO TID [facility] Last Admin: 01/18/18 12:40 Dose: 667 mg Clopidogrel Bisulfate (Plavix) 75 mg PO DAILY [facility] Dextrose (Dextrose 50% Inj) 0 ml IV STAT PRN; Protocol PRN Reason: Hypoglycemia Protocol Dextrose (Glutose 15) 0 gm PO ONCE PRN; Protocol PRN Reason: Hypoglycemia Protocol Dorzolamide HCl (Trusopt) 1 drop OU BID [facility] Glucagon (Glucagen Diagnostic Kit) 0 mg IM STAT PRN; Protocol PRN Reason: Hypoglycemia Protocol Ceftriaxone Sodium 1 gm/ (Sodium Chloride) 100 mls @ 100 mls/hr IVPB DAILY [facility]; Protocol Last Admin: 01/18/18 12:19 Dose: 100 mls/hr Insulin Detemir (Levemir) 25 units SC BID [facility] Insulin Human Regular (Humulin R) 0 units SC ACHS [facility]; Protocol Latanoprost (Xalatan Opht) 1 drop OS HS [facility] Ondansetron HCl (Zofran Inj) 4 mg IVP Q6 PRN PRN Reason: Nausea/Vomiting Timolol Maleate (Timoptic 0.5% Ophth Soln) 1 drop OU BID [facility] Torsemide (Demadex) 5 mg PO DAILY [facility] Last Admin: 01/18/18 10:24 Dose: 5 mg Vitamin B Complex/Vit C/Folic Acid (Nephro-Madhav) 1 tab PO DAILY [facility] Last Admin: 01/18/18 10:25 Dose: 1 tab - Labs Labs: 01/18/18 16:18 01/18/18 16:18 Attending/Attestation - Attestation I have personally seen and examined this patient.: Yes I have fully participated in the care of the patient.: Yes I have reviewed all pertinent clinical information, including history, physical exam and plan: Yes Notes (Text): Dizziness etiology to be determined ? Dehydration, medications, in a pt with old Cerebellar infarct seen on MRI - await further input by neurology -physical therapy consult - cont ASA , statin - fasting lipid panel Hypertriglyceridemia - Lipd panel not fasting - start low dose Tricor for now and rpt Lipid panel in am - cont Statin DM type II with Hyperglycemia, insulin requiring - increase Levemir to 28 units BID
[2018-01-18] MEDS ORDERED: Glucagon Recombinant 1 mg Inj IM PRN (13:12)
[2018-01-18] MEDS ORDERED: Dextrose 50% SYRINGE Inj (50 ml) IV PRN (13:12)
--- NOTE | 2018-01-18 13:38 | CARD ---
APPROVED REPORT Date of service: 01/18/2018 EXAM: Two-dimensional and M-mode echocardiogram with Doppler and color Doppler. Other Information Quality : GoodRhythm : NSR INDICATION Hypertension/HCVD 2D DIMENSIONS IVSd1.42 (0.7-1.1cm)LVDd4.94 (3.9-5.9cm) LVOT Diameter2.31 (1.8-2.4cm)PWd1.32 (0.7-1.1cm) IVSs1.56 (0.8-1.2cm)LVDs3.74 (2.5-4.0cm) FS (%) 24.3 %PWs1.47 (0.8-1.2cm) M-Mode DIMENSIONS Left Atrium (MM)4.53 (2.5-4.0cm)IVSd1.19 (0.7-1.1cm) Aortic Root3.78 (2.2-3.7cm)LVDd5.66 (4.0-5.6cm) Aortic Cusp Exc.2.22 (1.5-2.0cm)PWd1.41 (0.7-1.1cm) IVSs1.78 cmFS (%) 36 % LVDs3.63 (2.0-3.8cm)PWs1.75 cm Aortic Valve AoV Peak Kxhhmnng108.9cm/sAoV VTI28.8cmAO Peak GR.10mmHg LVOT Peak Xilvnjxy333.7cm/sLVOT VTI25.56cmAO Mean GR.6mmHg DAVID (VMAX)1.67ca3CRW (VTI)1.91cm2 Mitral Valve MV E Awzpcall419.0cm/sMV DECEL AIEH897zxXC A Bwsdibzr041.3cm/s MV KMS30xgV/A ratio1.0MVA (PHT)2.82cm2 TDI Lateral E' Peak V7.17cm/sMedial E' Peak V5.70cm/sE/Lateral E'14.5 E/Medial E'18.2 LEFT VENTRICLE The left ventricle is normal size. There is mild concentric left ventricular hypertrophy. The left ventricular systolic function is normal. The estimated ejection fraction is 55-60% No regional wall motion abnormalities noted.. Transmitral Doppler flow pattern is Grade I-abnormal relaxation pattern. No left ventricle thrombus noted on this study. There is no ventricular septal defect visualized. There is no left ventricular aneurysm. There is no mass noted in the left ventricle. RIGHT VENTRICLE The right ventricle is normal size. There is normal right ventricular wall thickness. The right ventricular systolic function is normal. ATRIA The left atrium is mildly dilated. The right atrium size is normal. The interatrial septum is intact with no evidence for an atrial septal defect. AORTIC VALVE The aortic valve is normal in structure. No aortic regurgitation is present. There is no aortic valvular stenosis. There is no aortic valvular vegetation. MITRAL VALVE The mitral valve is normal in structure. There is no evidence of mitral valve prolapse. There is no mitral valve stenosis. There is trace mitral valve regurgitation noted. TRICUSPID VALVE The tricuspid valve is normal in structure. There is trace tricuspid valve regurgitation noted. There is no tricuspid valve prolapse or vegetation. There is no tricuspid valve stenosis. PULMONIC VALVE The pulmonary valve is normal in structure. There is no pulmonic valvular regurgitation. There is no pulmonic valvular stenosis. GREAT VESSELS The aortic root is normal in size. The ascending aorta is normal in size. The pulmonary artery is normal. The IVC is normal in size and collapses >50% with inspiration. PERICARDIAL EFFUSION There is no pericardial effusion. There is no pleural effusion. <Conclusion> There is mild concentric left ventricular hypertrophy. The estimated ejection fraction is 55-60% Transmitral Doppler flow pattern is Grade I-abnormal relaxation pattern. The left atrium is mildly dilated. There is trace mitral valve regurgitation noted. There is trace tricuspid valve regurgitation noted.
--- NOTE | 2018-01-18 14:41 | CP.PCM.CON ---
History of Present Illness - History of Present Illness History of Present Illness: 57 yo HM with pmh/o longstanding dm, htn, esrd, pvd, dm retinopathy, glaucoma, s/p rt LE bypass, s/p amputation of rt 5 th toe was seen and examined during hd yesterday. pt was c/o feeling dizzy for 2-3 days, occ nausea, vomitings. pt denied cp, palpitation, fever, cough, sob. pt also c/o poor vision. pt was advised to go to hosp for evaluation. pt's bp is stable during dialysis Review of Systems - Review of Systems All systems: reviewed and no additional remarkable complaints except Review of Systems: dizzyness, nausea, vomitings, poor vision - EENT Eyes: As Per HPI, Loss of Vision Ears: As Per HPI Nose/Mouth/Throat: As Per HPI - Cardiovascular Cardiovascular: As Per HPI - Respiratory Respiratory: As Per HPI - Gastrointestinal Gastrointestinal: As Per HPI, Nausea, Vomiting - Genitourinary Genitourinary: As Per HPI - Musculoskeletal Musculoskeletal: As Per HPI - Integumentary Integumentary: As Per HPI - Neurological Neurological: Dizziness - Psychiatric Psychiatric: As Per HPI - Endocrine Endocrine: As Per HPI - Hematologic/Lymphatic Hematologic: As Per HPI Past Patient History - Past Medical History & Family History Past Medical History?: Yes - Past Social History Smoking Status: Never Smoked - CARDIAC Hx Hypercholesterolemia: Yes Hx Hypertension: Yes - PULMONARY Hx Respiratory Disorders: No - NEUROLOGICAL Hx Neurological Disorder: No - HEENT Hx HEENT Problems: Yes Hx Glaucoma: Yes - RENAL Hx Chronic Kidney Disease: Yes - ENDOCRINE/METABOLIC Hx Endocrine Disorders: Yes Hx Diabetes Mellitus Type 2: Yes - HEMATOLOGICAL/ONCOLOGICAL Hx Anemia: Yes - INTEGUMENTARY Hx Dermatological Problems: No - MUSCULOSKELETAL/RHEUMATOLOGICAL Hx Falls: No - GASTROINTESTINAL Hx Gastrointestinal Disorders: No - GENITOURINARY/GYNECOLOGICAL Hx Genitourinary Disorders: No - PSYCHIATRIC Hx Psychophysiologic Disorder: No Hx Substance Use: No - SURGICAL HISTORY Hx Surgeries: Yes Hx Angioplasty: Yes (august-2011) Other/Comment: amputation of 5th digit on left foot-2011(digit infection); right eye surgery x1 month ago (glaucoma) - ANESTHESIA Hx Anesthesia: Yes Hx Anesthesia Reactions: No Hx Malignant Hyperthermia: No Meds Allergies/Adverse Reactions: Allergies Allergy/AdvReac Type Severity Reaction Status Date / Time No Known Allergies Allergy Verified 01/17/18 15:52 - Medications Medications: Current Medications Amlodipine Besylate (Norvasc) 2.5 mg PO DAILY [facility] Last Admin: 01/18/18 10:25 Dose: 2.5 mg Apixaban (Eliquis) 5 mg PO Q12 [facility]; Protocol Last Admin: 01/18/18 10:25 Dose: 5 mg Atorvastatin Calcium (Lipitor) 20 mg PO HS [facility] Brimonidine Tartrate (Alphagan 0.2% Opht) 1 drop OS TID [facility] Last Admin: 01/18/18 14:36 Dose: 1 drop Calcium Acetate (Phoslo) 667 mg PO TID [facility] Last Admin: 01/18/18 12:40 Dose: 667 mg Clopidogrel Bisulfate (Plavix) 75 mg PO DAILY [facility] Dextrose (Dextrose 50% Inj) 0 ml IV STAT PRN; Protocol PRN Reason: Hypoglycemia Protocol Dextrose (Glutose 15) 0 gm PO ONCE PRN; Protocol PRN Reason: Hypoglycemia Protocol Dorzolamide HCl (Trusopt) 1 drop OU BID SONNY Glucagon (Glucagen Diagnostic Kit) 0 mg IM STAT PRN; Protocol PRN Reason: Hypoglycemia Protocol Ceftriaxone Sodium 1 gm/ (Sodium Chloride) 100 mls @ 100 mls/hr IVPB DAILY [facility]; Protocol Last Admin: 01/18/18 12:19 Dose: 100 mls/hr Insulin Detemir (Levemir) 25 units SC BID SONNY Insulin Human Regular (Humulin R) 0 units SC ACHS [facility]; Protocol Latanoprost (Xalatan Opht) 1 drop OS HS [facility] Ondansetron HCl (Zofran Inj) 4 mg IVP Q6 PRN PRN Reason: Nausea/Vomiting Timolol Maleate (Timoptic 0.5% Ophth Soln) 1 drop OU BID SONNY Torsemide (Demadex) 5 mg PO DAILY [facility] Last Admin: 01/18/18 10:24 Dose: 5 mg Vitamin B Complex/Vit C/Folic Acid (Nephro-Madhav) 1 tab PO DAILY [facility] Last Admin: 01/18/18 10:25 Dose: 1 tab Physical Exam - Constitutional Appears: No Acute Distress - Head Exam Head Exam: ATRAUMATIC, NORMAL INSPECTION, NORMOCEPHALIC - Eye Exam Eye Exam: EOMI, Normal appearance, PERRL Pupil Exam: NORMAL ACCOMODATION Additional comments: poor vision in both eyes - ENT Exam ENT Exam: Mucous Membranes Moist - Neck Exam Neck exam: Positive for: Normal Inspection - Respiratory Exam Respiratory Exam: Clear to Auscultation Bilateral, NORMAL BREATHING PATTERN - Cardiovascular Exam Cardiovascular Exam: REGULAR RHYTHM, +S1, +S2 - GI/Abdominal Exam GI & Abdominal Exam: Normal Bowel Sounds, Soft - Rectal Exam Rectal Exam: Deferred - Extremities Exam Additional comments: no edema - Neurological Exam Neurological exam: Alert, CN II-XII Intact, Normal Gait, Oriented x3 - Psychiatric Exam Psychiatric exam: Normal Affect - Skin Skin Exam: Normal Color, Warm Results - Vital Signs Recent Vital Signs: Last Vital Signs Temp 97.9 F 01/18/18 12:20 Pulse 78 01/18/18 12:20 Resp 18 01/18/18 12:20 BP 147/86 01/18/18 12:20 Pulse Ox 100 01/18/18 12:20 - Labs Result Diagrams: 01/18/18 16:18 01/18/18 16:18 Labs: Laboratory Results - last 24 hr 01/17/18 01/17/18 01/17/18 17:10 17:10 17:10 WBC 12.2 H RBC 4.24 L Hgb 12.7 D Hct 39.4 MCV 92.9 D MCH 29.9 MCHC 32.1 L RDW 19.0 H Plt Count 164 MPV 9.1 Neut % (Auto) 75.2 H Lymph % (Auto) 13.2 L Ellis % (Auto) 8.8 Eos % (Auto) 1.9 Baso % (Auto) 0.9 Neut # (Auto) 9.1 H Lymph # (Auto) 1.6 Ellis # (Auto) 1.1 H Eos # (Auto) 0.2 Baso # (Auto) 0.1 Sodium 140 Potassium 3.4 L Chloride 91 L Carbon Dioxide 32 H Anion Gap 20 BUN 26 H Creatinine 6.7 H Est GFR ( Amer) 10 Est GFR (Non-Af Amer) 9 POC Glucose (mg/dL) Random Glucose 201 H Hemoglobin A1c 8.2 H Calcium 9.0 Total Bilirubin 0.7 AST 29 ALT 20 L Alkaline Phosphatase 117 Total Protein 9.7 H Albumin 4.7 Globulin 5.0 H Albumin/Globulin Ratio 1.0 Triglycerides Cholesterol LDL Cholesterol Direct HDL Cholesterol Urine Color Urine Clarity Urine pH Ur Specific [place] Urine Protein Urine Glucose (UA) Urine Ketones Urine Blood Urine Nitrate Urine Bilirubin Urine Urobilinogen Ur Leukocyte Esterase Urine RBC (Auto) Urine WBC Clumps (Auto) Urine Microscopic WBC 01/17/18 01/17/18 01/18/18 17:10 22:57 05:43 WBC RBC Hgb Hct MCV MCH MCHC RDW Plt Count MPV Neut % (Auto) Lymph % (Auto) Ellis % (Auto) Eos % (Auto) Baso % (Auto) Neut # (Auto) Lymph # (Auto) Ellis # (Auto) Eos # (Auto) Baso # (Auto) Sodium Potassium Chloride Carbon Dioxide Anion Gap BUN Creatinine Est GFR ( Amer) Est GFR (Non-Af Amer) POC Glucose (mg/dL) 266 H Random Glucose Hemoglobin A1c Calcium Total Bilirubin AST ALT Alkaline Phosphatase Total Protein Albumin Globulin Albumin/Globulin Ratio Triglycerides 675 H Cholesterol 274 H LDL Cholesterol Direct 91 HDL Cholesterol 31 Urine Color Yellow Urine Clarity Turbid Urine pH 6.0 Ur Specific [place] 1.009 Urine Protein >=500 Urine Glucose (UA) Neg Urine Ketones Negative Urine Blood Large Urine Nitrate Negative Urine Bilirubin Negative Urine Urobilinogen 0.2-1.0 Ur Leukocyte Esterase Large Urine RBC (Auto) 1991 H Urine WBC Clumps (Auto) Many H Urine Microscopic WBC 58054 H 01/18/18 11:26 WBC RBC Hgb Hct MCV MCH MCHC RDW Plt Count MPV Neut % (Auto) Lymph % (Auto) Ellis % (Auto) Eos % (Auto) Baso % (Auto) Neut # (Auto) Lymph # (Auto) Ellis # (Auto) Eos # (Auto) Baso # (Auto) Sodium Potassium Chloride Carbon Dioxide Anion Gap BUN Creatinine Est GFR ( Amer) Est GFR (Non-Af Amer) POC Glucose (mg/dL) 271 H Random Glucose Hemoglobin A1c Calcium Total Bilirubin AST ALT Alkaline Phosphatase Total Protein Albumin Globulin Albumin/Globulin Ratio Triglycerides Cholesterol LDL Cholesterol Direct HDL Cholesterol Urine Color Urine Clarity Urine pH Ur Specific [place] Urine Protein Urine Glucose (UA) Urine Ketones Urine Blood Urine Nitrate Urine Bilirubin Urine Urobilinogen Ur Leukocyte Esterase Urine RBC (Auto) Urine WBC Clumps (Auto) Urine Microscopic WBC - Imaging and Cardiology CT scan - head Status: Report reviewed by me MRI - head Status: Report reviewed by me Chest x-ray Status: Report reviewed by me Assessment & Plan - Assessment and Plan (Free Text) Assessment: 57 yo obese HM with pmh/o htn, dm, hld, dm retinopathy, glaucoma, pvd, esrd on hd 3 x a week TTS, s/p rt LE bypass with dizzyness, nausea, occ vomitings 1. ESRD 2. HTN 3. DM 4. 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 sec. [facility] will schedule for hd in am, follow up with neurology c/w phos binders c/w nephrovite rx 1 tab po qd c/w PT/OT check labs in am Plan: as above
--- NOTE | 2018-01-18 14:56 | MRI ---
Date of service: 01/18/2018 PROCEDURE: Magnetic Resonance Angiography Brain HISTORY: ataxia COMPARISON: None available. TECHNIQUE: 3D time of flight MR angiography of the intracranial arteries was performed. Rotating maximum intensity projection images were generated. FINDINGS: INTERNAL CAROTID ARTERIES: Unremarkable. The skull base, petrous, cavernous and supraclinoid segments are bilaterally widely patient. ANTERIOR CEREBRAL ARTERIES: Unremarkable. A1 and A2 segments are widely patent. Smaller distal branches unremarkable, as visualized. MIDDLE CEREBRAL ARTERIES: Unremarkable. M1 and M2 segments are widely patent. Perisylvian branches grossly symmetric. POSTERIOR CIRCULATION: Basilar Artery: Unremarkable. Distal Vertebral Arteries: The left vertebral artery is widely patent as well as the basilar artery with whom its flow is contiguous. An agenetic distal right vertebral artery is appreciate except for its distal most segment which is markedly hypoplastic. Occlusion of the presumed agenetic segment is not excluded though this is not favored either. Posterior Cerebral Arteries: Widely patent and unremarkable appearing overall. Posterior Inferior Cerebellar Arteries: Unremarkable. ANEURYSM/ VASCULAR MALFORMATIONS: None. OTHER FINDINGS: None. IMPRESSION: Cerebral arterial circulation appears grossly unremarkable as well as bilateral visualized internal carotid arteries. Bilateral posterior cerebral arteries are widely patent as well as the basilar artery and left vertebral artery. A likely a genetic distal right vertebral artery is suggested with hypoplastic distal right vertebral artery identified immediately proximal to the basilar artery. Further characterization of intracranial arterial circulation can provided by CT angiography of the brain and possibly Neck if clinically warranted.
--- NOTE | 2018-01-18 15:46 | PQF ---
PROVIDER RESPONSE TEXT: Patient has a history of recurrent DVT hence on elliquis. No DVT currently REVIEWER QUERY TEXT: Documentation Clarification 2 queries as follows: Your help is requested in clarifying the following clinical documentation, if you can please further specify in the medical record : 1. Acute versus Chronic DVT 2. site of the DVT: if known OR: Unable to determine OR: Other explanation of clinical finding H and P:PMHx of ESRD, IDDM, PAD, Recurrent DVT, HTN, HLD admitted for intractable dizzin ess. dxs. include: 6) Recurrent DVT -resume Eliquis 5mg and 7) Prophylaxis -Eliquis 5mg QD -Apixaban 5 mg po Q12 hrs. The patient's Clinical Indicators include: xx Query created by: Gena Greenwood on 01/18/2018 2:34 PM Electronically signed by: Erasmo Head 01/18/2018 3:43 PM
--- NOTE | 2018-01-18 15:54 | MRI ---
Date of service: 01/18/2018 PROCEDURE: MRI BRAIN WITHOUT CONTRAST HISTORY: ataxia COMPARISON: Noncontrast head CT 01/17/2018. TECHNIQUE: Multiplanar, multisequence MR images of the brain were obtained without intravenous contrast enhancement. FINDINGS: HEMORRHAGE: None DWI: No evidence of an acute or early subacute infarction. BRAIN PARENCHYMA: An old infarct is identified the inferior left cerebellum. Further, multifocal subcortical and periventricular white-matter change identified in the bilateral cerebral hemispheres in a pattern that may reflect chronic microangiopathy. Some of the periventricular white-matter changes appear perpendicular to the lateral ventricle long axis with the genu of the corpus callosum borderline a involved at the right. Therefore it is uncertain whether not this is a patient with demyelination not previously evaluated. Further clinical correlation is advised. The white matter pattern of abnormalities makes see that expected for the patient's stated age of 57 years at this time. There is also limited diffuse cerebral atrophy appreciated. Signal intensity throughout the brainstem is unremarkable. VENTRICLES: Unremarkable. No hydrocephalus. CRANIUM: Unremarkable. ORBITS: Grossly unremarkable. PARANASAL SINUSES/MASTOIDS: Clear VASCULAR SYSTEM: Skull base flow voids intact. OTHER FINDINGS: None. IMPRESSION: 1. No evidence of an acute or subacute brain infarction. No mass effect. Chronic infarct left cerebellar hemisphere potentially within periventricular white matter in a few foci at the cerebrum. 2. White-matter abnormalities could reflect chronic microangiopathy but would be somewhat a extensive for the patient's stated age of 57 years. Demyelination is questioned though other etiologies are possible and further clinical correlation is advised. Please see discussion above.
[2018-01-18 16:25] LABS: HEMOGLOBIN 11.5 g/dL (12.0-18.0); MEAN CELL VOLUME 93.6 fl (80.0-94.0); MEAN CORPUSCULAR HGB CONC 32.1 g/dL (33.0-37.0); RBC 3.84 Mil/uL (4.40-5.90); RED CELL DISTRIBUTION WIDTH 19.2 % (11.5-14.5)
[2018-01-18] MEDS ORDERED: TIMOLOL MALEAT BOTHEYES SCH (17:00)
[2018-01-18] MEDS ORDERED: [UNRECOGNIZED DRUG - OTHER] BOTHEYES SCH (17:00)
[2018-01-18] MEDS ORDERED: DORZOLAMIDE HCL BOTHEYES SCH (17:00)
--- NOTE | 2018-01-18 17:03 | PQF ---
PROVIDER RESPONSE TEXT: Dizziness etiology to be determined - await MRI of brain result History of Recurrent DVT, chronic REVIEWER QUERY TEXT: Symptom Underlying Cause Please document the underlying diagnosis causing the patient?s documented symptom of dizziness; if kn own after the work up is completed OR: Unable to determine H and P: y/o male with PMHx of ESRD, IDDM, PAD, Recurrent DVT, HTN, HLD admitted for intractable dizz in ess. Diagnoses include: Dizziness -Head CT negative -Brain MRI/MRA pending -aspirin 81 given in ED -Antivert given in ED -orthostatic BPs -lipid panel pending -neuro consult pending The patient's Clinical Indicators include: xx Query created by: Gena Greenwood on 01/18/2018 2:34 PM Electronically signed by: Radha Cordon MD 01/18/2018 4:59 PM
[2018-01-18 17:10] LABS: ALBUMIN 4.5 g/dL (3.5-5.0); CALCIUM 8.6 mg/dL (8.4-10.2)
[2018-01-18] MEDS: Dorzolamide 2% Ophth Soln OU SCH (17:46)
[2018-01-18] MEDS: Insulin Regular 100 units/ml SC SCH ×2 (17:49→21:53)
--- NOTE | 2018-01-18 17:55 | CP.PCM.CON ---
History of Present Illness - History of Present Illness History of Present Illness: Neurology Consultation Note: Mr. Priyank Foote is a 57-year-old man with a past medical history of PMHx of IDDM, ESRD (on dialysis , ), DVT, HTN, HLD, PAD, who presented to the ED complaining of nausea, vomiting and vertigo. MRI of the brain showed chronic cerebellar infarct and diffuse microangiopathic changes with small vessel disease. 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 Review of Systems - Review of Systems All systems: reviewed and no additional remarkable complaints except - Constitutional Constitutional: As Per HPI - EENT Eyes: Loss of Vision Ears: absent: As Per HPI, Decreased Hearing, Ear Discharge, Ear Pain, Tinnitus, Abnormal Hearing, Disequilibrium, Dizziness, Other Nose/Mouth/Throat: absent: As Per HPI, Epistaxis, Nasal Congestion, Nasal Discharge, Nasal Obstruction, Nasal Trauma, Nose Pain, Post Nasal Drip, Sinus Pain, Sinus Pressure, Bleeding Gums, Change in Voice, Dental Pain, Dry Mouth, Dysphagia, Halitosis, Hoarsness, Lip Swelling, Mouth Lesions, Mouth Pain, Odynophagia, Sore Throat, Throat Swelling, Tongue Swelling, Facial Pain, Neck Pain, Neck Mass, Other - Cardiovascular Cardiovascular: absent: As Per HPI, Acrocyanosis, Chest Pain, Chest Pain at Rest, Chest Pain with Activity, Claudication, Diaphoresis, Dyspnea, Dyspnea on Exertion, Edema, Irregular Heart Rhythm, Pain Radiating to Arm/Neck/Jaw, Leg Edema, Leg Ulcers, Lightheadedness, Orthopnea, Palpitations, Paroxysmal Nocturnal Dyspnea, Pedal Edema, Radiating Pain, Rapid Heart Rate, Slow Heart Rate, Syncope, Other - Respiratory Respiratory: absent: As Per HPI, Cough, Dyspnea, Hemoptysis, Dyspnea on Exertion, Wheezing, Snoring, Stridor, Pain on Inspiration, Chest Congestion, Excessive Mucous Production, Change in Mucous Color, Pain with Coughing, Other - Gastrointestinal Gastrointestinal: As Per HPI - Genitourinary Genitourinary: absent: As Per HPI, Change in Urinary Stream, Difficulty Urinating, Dysuria, Flank Pain, Hematuria, Pyuria, Nocturia, Urinary Incontinence, Urinary Frequency, Urinary Hesitance, Urinary Urgency, Voiding Freq/Small Amts, Freq UTI, Hx Renal/Bladder Calculi, Hx /Renal Surgery, Bladder Distension, Other - Musculoskeletal Musculoskeletal: absent: As Per HPI, Abnormal Gait, Arthralgias, Atrophy, Back Pain, Deformity, Joint Swelling, Limited Range of Motion, Loss of Height, Muscle Cramps, Muscle Weakness, Myalgias, Neck Pain, Numbness, Radiating Pain into Limb, Stiffness, Tingling, Other - Neurological Neurological: As Per HPI - Psychiatric Psychiatric: absent: As Per HPI, Abnormal Sleep Pattern, Anhedonia, Anxiety, Auditory Hallucinations, Behavioral Changes, Change in Appetite, Change in Libido, Confusion, Depression, Difficulty Concentrating, Hallucinations, Homicidal Ideation, Hopelessness, Irritability, Memory Loss, Mood Swings, Panic Attacks, Paranoia, Suicidal Ideation, Visual Hallucinations, Tactile Hallucinations, Other - Endocrine Endocrine: absent: As Per HPI, Change in Body Appearance, Change in Libido, Cold Intolorance, Deepening of Voice, Excessive Sweating, Fatigue, Flushing, Heat Intolorance, Increase in Ring/Shoe/Hat Size, Palpitations, Polydipsia, Polyphagia, Polyuria, Other Past Patient History - Past Medical History & Family History Past Medical History?: Yes - Past Social History Smoking Status: Never Smoked - CARDIAC Hx Hypercholesterolemia: Yes Hx Hypertension: Yes - PULMONARY Hx Respiratory Disorders: No - NEUROLOGICAL Hx Neurological Disorder: No - HEENT Hx HEENT Problems: Yes Hx Glaucoma: Yes - RENAL Hx Chronic Kidney Disease: Yes - ENDOCRINE/METABOLIC Hx Endocrine Disorders: Yes Hx Diabetes Mellitus Type 2: Yes - HEMATOLOGICAL/ONCOLOGICAL Hx Anemia: Yes - INTEGUMENTARY Hx Dermatological Problems: No - MUSCULOSKELETAL/RHEUMATOLOGICAL Hx Falls: No - GASTROINTESTINAL Hx Gastrointestinal Disorders: No - GENITOURINARY/GYNECOLOGICAL Hx Genitourinary Disorders: No - PSYCHIATRIC Hx Psychophysiologic Disorder: No Hx Substance Use: No - SURGICAL HISTORY Hx Surgeries: Yes Hx Angioplasty: Yes (aug-2011) Other/Comment: amputation of 5th digit on left foot-2011(digit infection); right eye surgery x1 month ago (glaucoma) - ANESTHESIA Hx Anesthesia: Yes Hx Anesthesia Reactions: No Hx Malignant Hyperthermia: No Meds Allergies/Adverse Reactions: Allergies Allergy/AdvReac Type Severity Reaction Status Date / Time No Known Allergies Allergy Verified 01/17/18 15:52 - Medications Medications: Current Medications Amlodipine Besylate (Norvasc) 2.5 mg PO DAILY [facility] Last Admin: 01/18/18 10:25 Dose: 2.5 mg Apixaban (Eliquis) 5 mg PO Q12 [facility]; Protocol Last Admin: 01/18/18 10:25 Dose: 5 mg Atorvastatin Calcium (Lipitor) 20 mg PO HS [facility] Brimonidine Tartrate (Alphagan 0.2% Opht) 1 drop OS TID [facility] Last Admin: 01/18/18 17:46 Dose: 1 drop Calcium Acetate (Phoslo) 667 mg PO TID [facility] Last Admin: 01/18/18 17:45 Dose: 667 mg Dextrose (Dextrose 50% Inj) 0 ml IV STAT PRN; Protocol PRN Reason: Hypoglycemia Protocol Dextrose (Glutose 15) 0 gm PO ONCE PRN; Protocol PRN Reason: Hypoglycemia Protocol Dorzolamide HCl (Trusopt) 1 drop OU BID [facility] Last Admin: 01/18/18 17:46 Dose: 1 drop Fenofibrate (Tricor) 48 mg PO DAILY [facility] Glucagon (Glucagen Diagnostic Kit) 0 mg IM STAT PRN; Protocol PRN Reason: Hypoglycemia Protocol Ceftriaxone Sodium 1 gm/ (Sodium Chloride) 100 mls @ 100 mls/hr IVPB DAILY [facility]; Protocol Last Admin: 01/18/18 12:19 Dose: 100 mls/hr Insulin Detemir (Levemir) 28 units SC BID [facility] Insulin Human Regular (Humulin R) 0 units SC ACHS [facility]; Protocol Last Admin: 01/18/18 17:49 Dose: 6 units Latanoprost (Xalatan Opht) 1 drop OS HS [facility] Ondansetron HCl (Zofran Inj) 4 mg IVP Q6 PRN PRN Reason: Nausea/Vomiting Timolol Maleate (Timoptic 0.5% Ophth Soln) 1 drop OU BID [facility] Last Admin: 01/18/18 17:47 Dose: 1 drop Torsemide (Demadex) 5 mg PO DAILY [facility] Last Admin: 01/18/18 10:24 Dose: 5 mg Vitamin B Complex/Vit C/Folic Acid (Nephro-Madhav) 1 tab PO DAILY [facility] Last Admin: 01/18/18 10:25 Dose: 1 tab Physical Exam - Constitutional Appears: Well - Head Exam Head Exam: ATRAUMATIC, NORMAL INSPECTION, NORMOCEPHALIC - Eye Exam Eye Exam: EOMI, Normal appearance, PERRL - ENT Exam ENT Exam: Mucous Membranes Moist, Normal Exam - Neck Exam Neck exam: Positive for: Normal Inspection - Respiratory Exam Respiratory Exam: Clear to Auscultation Bilateral, NORMAL BREATHING PATTERN - Cardiovascular Exam Cardiovascular Exam: REGULAR RHYTHM, +S1, +S2 - GI/Abdominal Exam GI & Abdominal Exam: Normal Bowel Sounds, Soft. absent: Tenderness - Rectal Exam Rectal Exam: Deferred - Neurological Exam Neurological exam: Alert, CN II-XII Intact, Normal Gait, Oriented x3, Reflexes Normal - Psychiatric Exam Psychiatric exam: Normal Affect, Normal Mood Results - Vital Signs Recent Vital Signs: Last Vital Signs Temp 98.1 F 01/18/18 16:02 Pulse 71 01/18/18 16:02 Resp 16 01/18/18 16:02 BP 140/73 01/18/18 16:02 Pulse Ox 93 L 01/18/18 16:02 - Labs Result Diagrams: 01/18/18 16:18 01/18/18 16:18 Labs: Laboratory Results - last 24 hr 01/17/18 01/17/18 01/17/18 17:10 17:10 22:57 WBC RBC Hgb Hct MCV MCH MCHC RDW Plt Count Sodium Potassium Chloride Carbon Dioxide Anion Gap BUN Creatinine Est GFR ( Amer) Est GFR (Non-Af Amer) POC Glucose (mg/dL) Random Glucose Hemoglobin A1c 8.2 H Calcium Total Bilirubin AST ALT Alkaline Phosphatase Total Protein Albumin Globulin Albumin/Globulin Ratio Triglycerides 675 H Cholesterol 274 H LDL Cholesterol Direct 91 HDL Cholesterol 31 Urine Color Yellow Urine Clarity Turbid Urine pH 6.0 Ur Specific [place] 1.009 Urine Protein >=500 Urine Glucose (UA) Neg Urine Ketones Negative Urine Blood Large Urine Nitrate Negative Urine Bilirubin Negative Urine Urobilinogen 0.2-1.0 Ur Leukocyte Esterase Large Urine RBC (Auto) 1991 H Urine WBC Clumps (Auto) Many H Urine Microscopic WBC 45155 H 01/18/18 01/18/18 01/18/18 05:43 11:26 16:08 WBC RBC Hgb Hct MCV MCH MCHC RDW Plt Count Sodium Potassium Chloride Carbon Dioxide Anion Gap BUN Creatinine Est GFR ( Amer) Est GFR (Non-Af Amer) POC Glucose (mg/dL) 266 H 271 H 305 H Random Glucose Hemoglobin A1c Calcium Total Bilirubin AST ALT Alkaline Phosphatase Total Protein Albumin Globulin Albumin/Globulin Ratio Triglycerides Cholesterol LDL Cholesterol Direct HDL Cholesterol Urine Color Urine Clarity Urine pH Ur Specific [place] Urine Protein Urine Glucose (UA) Urine Ketones Urine Blood Urine Nitrate Urine Bilirubin Urine Urobilinogen Ur Leukocyte Esterase Urine RBC (Auto) Urine WBC Clumps (Auto) Urine Microscopic WBC 01/18/18 01/18/18 16:18 16:18 WBC 11.0 H RBC 3.84 L Hgb 11.5 L Hct 35.9 MCV 93.6 MCH 30.0 MCHC 32.1 L RDW 19.2 H Plt Count 184 Sodium 139 Potassium 4.3 Chloride 92 L Carbon Dioxide 30 Anion Gap 21 H BUN 50 H Creatinine 10.3 H* D Est GFR ( Amer) 6 Est GFR (Non-Af Amer) 5 POC Glucose (mg/dL) Random Glucose 324 H Hemoglobin A1c Calcium 8.6 Total Bilirubin 0.6 AST 23 ALT 27 Alkaline Phosphatase 102 Total Protein 9.0 H Albumin 4.5 Globulin 4.5 H Albumin/Globulin Ratio 1.0 Triglycerides Cholesterol LDL Cholesterol Direct HDL Cholesterol Urine Color Urine Clarity Urine pH Ur Specific [place] Urine Protein Urine Glucose (UA) Urine Ketones Urine Blood Urine Nitrate Urine Bilirubin Urine Urobilinogen Ur Leukocyte Esterase Urine RBC (Auto) Urine WBC Clumps (Auto) Urine Microscopic WBC Assessment & Plan (1) Vertigo Assessment and Plan: 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 The patient is already on Eliquis for DVT, so I do not believe that adding an additional anticoagulant or antiplatelet agent would be helpful. Adequate hydration and careful dialysis would be important to avoid hypotension or dehydration. A CTA of the head/neck prior to dialysis tomorrow is recommended by radiology as well to further evaluate the intracranial vasculature. The patient will also benefit from PT/OT eval and treatment. Thank you for this consultation. Status: Acute
[2018-01-18] MEDS ORDERED: Latanoprost 0.005% Opht SOUTION OS SCH (22:00)
[2018-01-18] MEDS ORDERED: ATORVASTATIN 20 MG PO SCH (22:00)
[2018-01-19 05:43] VITALS: RESP 20; TEMP 97.8
[2018-01-19 07:08] LABS: BASO # 0.1 K/uL (0.0-0.2); BASO % 0.5 % (0.0-2.0); EOS # 0.2 K/uL (0.0-0.7); EOS % 1.2 % (0.0-4.0); HEMOGLOBIN 11.3 g/dL (12.0-18.0); LYMPH # 2.1 K/uL (1.0-4.3); LYMPH % 14.7 % (20.0-40.0); MEAN CELL VOLUME 92.5 fl (80.0-94.0); MEAN CORPUSCULAR HEMOGLOBIN 29.3 pg (27.0-31.0); MEAN CORPUSCULAR HGB CONC 31.7 g/dL (33.0-37.0); MEAN PLATELET VOLUME 8.8 fl (7.2-11.7); MONO # 1.2 K/uL (0.0-0.8); MONO % 8.7 % (0.0-10.0); NEUT # 10.4 K/uL (1.8-7.0); NEUT % 74.9 % (50.0-75.0); RBC 3.86 Mil/uL (4.40-5.90); RED CELL DISTRIBUTION WIDTH 19.1 % (11.5-14.5); WHITE BLOOD COUNT 13.9 K/uL (4.8-10.8)
[2018-01-19 07:20] LABS: ALBUMIN 4.2 g/dL (3.5-5.0); CALCIUM 8.5 mg/dL (8.4-10.2)
[2018-01-19] MEDS: Insulin Regular 100 units/ml SC SCH ×2 (08:00→12:00)
--- NOTE | 2018-01-19 08:21 | CP.PCM.PN ---
Subjective - Date & Time of Evaluation Date of Evaluation: 01/19/18 Time of Evaluation: 10:38 - Subjective Subjective: 57 YO M seen resting comfortably in bed after eating his breakfast. Denies any overnight complaints. States he is feeling better then admission and currently feels less dizzy the previously. He participated in PT yesterday. Patient had MRI yesterday which showed findings consistent with diffuse microangiopathic changes with small vessel disease. MRA showed possible vertebro- basilar insufficiency. Will have CTA of head and neck today before his dialysis session . Objective - Vital Signs/Intake and Output Vital Signs (last 24 hours): Temp Pulse Resp BP Pulse Ox 97.8 F 84 20 174/94 H 97 01/19/18 05:42 01/19/18 05:42 01/19/18 05:42 01/19/18 05:42 01/19/18 05:42 - Medications Medications: Current Medications Amlodipine Besylate (Norvasc) 2.5 mg PO DAILY [facility] Last Admin: 01/18/18 10:25 Dose: 2.5 mg Apixaban (Eliquis) 5 mg PO Q12 [facility]; Protocol Last Admin: 01/18/18 21:25 Dose: 5 mg Atorvastatin Calcium (Lipitor) 20 mg PO HS [facility] Last Admin: 01/18/18 21:25 Dose: 20 mg Brimonidine Tartrate (Alphagan 0.2% Opht) 1 drop OS TID [facility] Last Admin: 01/18/18 17:46 Dose: 1 drop Calcium Acetate (Phoslo) 667 mg PO TID [facility] Last Admin: 01/18/18 17:45 Dose: 667 mg Dextrose (Dextrose 50% Inj) 0 ml IV STAT PRN; Protocol PRN Reason: Hypoglycemia Protocol Dextrose (Glutose 15) 0 gm PO ONCE PRN; Protocol PRN Reason: Hypoglycemia Protocol Dorzolamide HCl (Trusopt) 1 drop OU BID [facility] Last Admin: 01/18/18 17:46 Dose: 1 drop Fenofibrate (Tricor) 48 mg PO DAILY [facility] Glucagon (Glucagen Diagnostic Kit) 0 mg IM STAT PRN; Protocol PRN Reason: Hypoglycemia Protocol Ceftriaxone Sodium 1 gm/ (Sodium Chloride) 100 mls @ 100 mls/hr IVPB DAILY [facility]; Protocol Last Admin: 01/18/18 12:19 Dose: 100 mls/hr Insulin Detemir (Levemir) 28 units SC BID [facility] Insulin Human Regular (Humulin R) 0 units SC ACHS [facility]; Protocol Last Admin: 01/18/18 21:53 Dose: Not Given Latanoprost (Xalatan Opht) 1 drop OS HS [facility] Last Admin: 01/18/18 21:25 Dose: 1 drop Metoprolol Tartrate (Lopressor) 50 mg PO BID [facility] Ondansetron HCl (Zofran Inj) 4 mg IVP Q6 PRN PRN Reason: Nausea/Vomiting Timolol Maleate (Timoptic 0.5% Ophth Soln) 1 drop OU BID [facility] Last Admin: 01/18/18 17:47 Dose: 1 drop Torsemide (Demadex) 5 mg PO DAILY [facility] Last Admin: 01/18/18 10:24 Dose: 5 mg Vitamin B Complex/Vit C/Folic Acid (Nephro-Madhav) 1 tab PO DAILY [facility] Last Admin: 01/18/18 10:25 Dose: 1 tab - Labs Labs: 01/19/18 06:30 01/19/18 06:30 - Constitutional Appears: No Acute Distress - Head Exam Head Exam: NORMAL INSPECTION - Eye Exam Eye Exam: Normal appearance - ENT Exam ENT Exam: Mucous Membranes Moist, Normal Exam - Respiratory Exam Respiratory Exam: Clear to Ausculation Bilateral, NORMAL BREATHING PATTERN. 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 - F/U with Morning CTA of head and neck before dialysis session -lipid panel - LDL and HDL w/n/l; triglycerides and cholesterol elevated -neuro consult Dr. Cee - patricia appreciated - C/W PT/OT - C/W anticoagulation 2) Dysuria -urine Cx - Morg Morganii SS Morganii -c/w rocephin 1gm - day #3 - WBC: 13.3 3) ESRD on dialysis T, , -Nephro consult Dr. Collier - recs appreciated - Dialysis session today - C/W phospate binders 4) IDDM -hemoglobin A1C - 8.2 -Levemir 25 g BID - Sliding scale -resume home meds -monitor 5) HTN -increased today most likely secondary to volume overload will monitor after dialysis session this am -c/w home meds 6) Hx of glaucoma -c/w Latanaprost - C/W Timolol eye drops 7) Recurrent DVT -resume Eliquis 5mg 8) Prophylaxis -Eliquis 5mg QD 9) Diet -renal 10) Code status -full code
[2018-01-19] MEDS ORDERED: Insulin Detemir 100 Units/ml Inj SC SCH (09:00)
[2018-01-19] MEDS: Multivitamin Vitamin B Complex (Nephro-Vite) Tab PO SCH (09:06)
[2018-01-19] MEDS: Dorzolamide 2% Ophth Soln OU SCH (09:09)
[2018-01-19] MEDS: Brimonidine 0.2% 50 DROP/5 ML BOTTLE OS SCH ×2 (09:11→13:51)
[2018-01-19] MEDS ORDERED: Iodixanol 320 MG/ML 100 ML BOTTLE IV ONE (12:14)
[2018-01-19] MEDS ORDERED: Sodium Chloride 0.9% 100 ML ONE (12:14)
--- NOTE | 2018-01-19 13:26 | CT ---
Date of service: 01/19/2018 PROCEDURE: CT Angiography of the neck and brain. HISTORY: DIZZINESS UNSTEADY. ABN FINDING MRI/MRA COMPARISON: Comparison is made with the previous MRI of the brain dated 01/18/2018 TECHNIQUE: CT angiography of the intracranial arteries was performed. Coronal and sagittal maximum intensity projection reformated images were generated. This CT exam was performed using one or more of the following dose reduction techniques: Automated exposure control, adjustment of the mA and/or kV according to patient size, and/or use of iterative reconstruction technique. FINDINGS: RIGHT CAROTID ARTERIES: Common Carotid Artery: Normal. Carotid Bifurcation: Atherosclerotic calcifications seen without evidence Internal Carotid Artery:Normal. Of significant stenosis. External Carotid Artery (proximal branches): Normal. LEFT CAROTID ARTERIES: Common Carotid Artery: Normal. Carotid Bifurcation: Atherosclerotic calcifications seen Internal Carotid Artery:Focal approximately 80 percent stenosis noted at the origin of the left internal carotid artery. External Carotid Artery (proximal branches): Normal. VERTEBRAL ARTERIES: Right Vertebral Artery: There is segmental stenosis noted at the proximal and mid right vertebral artery. Occlusion of the distal segment of the right vertebral artery. Left Vertebral Artery: Mild approximately 50 percent stenosis in the distal segment of the left vertebral artery. Atherosclerotic calcifications seen in the distal segment of the left vertebral artery. INTERNAL CEREBRAL ARTERIES: Unremarkable. The skull base, petrous, cavernous and supraclinoid segments are bilaterally widely patent. ANTERIOR CEREBRAL ARTERIES: Unremarkable. A1 and A2 segments are widely patent. Smaller distal branches unremarkable, as visualized. MIDDLE CEREBRAL ARTERIES: Unremarkable. M1 and M2 segments are widely patent. Perisylvian branches grossly symmetric. POSTERIOR CIRCULATION: Basilar Artery: Unremarkable. Distal Vertebral Arteries: Unremarkable. Posterior Cerebral Arteries: Unremarkable. Posterior Inferior Cerebellar Arteries: Unremarkable. ANEURYSM/ VASCULAR MALFORMATIONS: None. OTHER FINDINGS: None. IMPRESSION: Focal approximately 80 percent stenosis noted at the origin of the left internal carotid artery. Segmental stenosis noted at the proximal and mid right vertebral artery. No evidence of occlusion or stenosis in the intracranial arteries.
--- NOTE | 2018-01-19 13:50 | CP.PCM.PN ---
Subjective - Date & Time of Evaluation Date of Evaluation: 01/19/18 Time of Evaluation: 13:50 - Subjective Subjective: 57 yo HM with pmh/o longstanding dm, htn, esrd, pvd, dm retinopathy, glaucoma, s/p rt LE bypass, s/p amputation of rt 5 th toe was seen and examined during hd yesterday. pt was c/o feeling dizzy for 2-3 days, occ nausea, vomitings. pt denied cp, palpitation, fever, cough, sob. pt also c/o poor vision. pt was advised to go to hosp for evaluation. pt's bp is stable during dialysis pt was seen and examined during hd, uf goal is 2- 3 lit as tolerated Objective - Vital Signs/Intake and Output Vital Signs (last 24 hours): Temp Pulse Resp BP Pulse Ox 97.8 F 84 20 174/94 H 97 01/19/18 05:42 01/19/18 05:42 01/19/18 05:42 01/19/18 05:42 01/19/18 05:42 - Medications Medications: Current Medications Amlodipine Besylate (Norvasc) 2.5 mg PO DAILY [facility] Last Admin: 01/19/18 09:06 Dose: 2.5 mg Apixaban (Eliquis) 5 mg PO Q12 [facility]; Protocol Last Admin: 01/19/18 09:06 Dose: 5 mg Atorvastatin Calcium (Lipitor) 20 mg PO HS [facility] Last Admin: 01/18/18 21:25 Dose: 20 mg Brimonidine Tartrate (Alphagan 0.2% Opht) 1 drop OS TID [facility] Last Admin: 01/19/18 09:11 Dose: 1 drop Calcium Acetate (Phoslo) 667 mg PO TID [facility] Last Admin: 01/19/18 09:08 Dose: 667 mg Dextrose (Dextrose 50% Inj) 0 ml IV STAT PRN; Protocol PRN Reason: Hypoglycemia Protocol Dextrose (Glutose 15) 0 gm PO ONCE PRN; Protocol PRN Reason: Hypoglycemia Protocol Dorzolamide HCl (Trusopt) 1 drop OU BID [facility] Last Admin: 01/19/18 09:09 Dose: 1 drop Fenofibrate (Tricor) 48 mg PO DAILY [facility] Glucagon (Glucagen Diagnostic Kit) 0 mg IM STAT PRN; Protocol PRN Reason: Hypoglycemia Protocol Ceftriaxone Sodium 1 gm/ (Sodium Chloride) 100 mls @ 100 mls/hr IVPB DAILY [facility]; Protocol Last Admin: 01/19/18 09:12 Dose: 100 mls/hr Insulin Detemir (Levemir) 28 units SC BID [facility] Last Admin: 01/19/18 09:08 Dose: 28 unit Insulin Human Regular (Humulin R) 0 units SC ACHS [facility]; Protocol Last Admin: 01/19/18 08:00 Dose: 2 units Latanoprost (Xalatan Opht) 1 drop OS HS [facility] Last Admin: 01/18/18 21:25 Dose: 1 drop Ondansetron HCl (Zofran Inj) 4 mg IVP Q6 PRN PRN Reason: Nausea/Vomiting Timolol Maleate (Timoptic 0.5% Ophth Soln) 1 drop OU BID [facility] Last Admin: 01/19/18 09:15 Dose: 1 drop Torsemide (Demadex) 5 mg PO DAILY [facility] Last Admin: 01/19/18 09:07 Dose: 5 mg Vitamin B Complex/Vit C/Folic Acid (Nephro-Madhav) 1 tab PO DAILY [facility] Last Admin: 01/19/18 09:06 Dose: 1 tab - Labs Labs: 01/19/18 06:30 01/19/18 06:30 - Constitutional Appears: Well, Toxic, No Acute Distress - Head Exam Head Exam: ATRAUMATIC, NORMAL INSPECTION, NORMOCEPHALIC - Eye Exam Eye Exam: EOMI, Normal appearance, PERRL Pupil Exam: NORMAL ACCOMODATION Additional comments: b/l poor visoin, only to hand movements - ENT Exam ENT Exam: Mucous Membranes Moist - Neck Exam Neck Exam: Full ROM, Normal Inspection - Respiratory Exam Respiratory Exam: Clear to Ausculation Bilateral, NORMAL BREATHING PATTERN - Cardiovascular Exam Cardiovascular Exam: REGULAR RHYTHM, +S1, +S2 - GI/Abdominal Exam GI & Abdominal Exam: Soft, Normal Bowel Sounds - Rectal Exam Rectal Exam: Deferred - Neurological Exam Neurological Exam: Alert, Awake, CN II-XII Intact, Oriented x3 Additional comments: pt is legally blind - Skin Skin Exam: Normal Color, Warm Assessment and Plan - Assessment and Plan (Free Text) Assessment: 57 yo obese HM with pmh/o htn, dm, hld, dm retinopathy, glaucoma, pvd, esrd on hd 3 x a week TTS, s/p rt LE bypass with dizzyness, nausea, occ vomitings 1. ESRD 2. HTN 3. DM 4. 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 sec. HPTH pt is being dialyzed, uf goal is 2-3 lit as tolerated follow up with neurology c/w phos binders c/w nephrovite rx 1 tab po qd c/w PT/OT
[2018-01-19 16:04] VITALS: BP 117/62; PULSE 69; O2SAT 96
--- NOTE | 2018-01-19 17:53 | CP.PCM.DIS ---
Provider - Provider Date of Admission: 01/17/18 20:59 Attending physician: Rajeev Ovalle MD Consults: Nephrology consult Neurology consult PT consult Time Spent in preparation of Discharge (in minutes): 20 Hospital Course - Lab Results Lab Results: Micro Results 01/17/18 18:45 Urine,Clean Catch Urine Culture - Final Morg Morganii Ss Morganii 01/17/18 20:24 Blood-Venous Blood Culture - Preliminary NO GROWTH AFTER 24 HOURS 01/17/18 20:20 Blood-Venous Blood Culture - Preliminary NO GROWTH AFTER 24 HOURS Most Recent Lab Values WBC 13.9 K/uL (4.8-10.8) H 01/19/18 06:30 RBC 3.86 Mil/uL (4.40-5.90) L 01/19/18 06:30 Hgb 11.3 g/dL (12.0-18.0) L 01/19/18 06:30 Hct 35.7 % (35.0-51.0) 01/19/18 06:30 MCV 92.5 fl (80.0-94.0) 01/19/18 06:30 MCH 29.3 pg (27.0-31.0) 01/19/18 06:30 MCHC 31.7 g/dL (33.0-37.0) L 01/19/18 06:30 RDW 19.1 % (11.5-14.5) H 01/19/18 06:30 Plt Count 224 K/uL (130-400) 01/19/18 06:30 MPV 8.8 fl (7.2-11.7) 01/19/18 06:30 Neut % (Auto) 74.9 % (50.0-75.0) 01/19/18 06:30 Lymph % (Auto) 14.7 % (20.0-40.0) L 01/19/18 06:30 Young % (Auto) 8.7 % (0.0-10.0) 01/19/18 06:30 Eos % (Auto) 1.2 % (0.0-4.0) 01/19/18 06:30 Baso % (Auto) 0.5 % (0.0-2.0) 01/19/18 06:30 Neut # (Auto) 10.4 K/uL (1.8-7.0) H 01/19/18 06:30 Lymph # (Auto) 2.1 K/uL (1.0-4.3) 01/19/18 06:30 Young # (Auto) 1.2 K/uL (0.0-0.8) H 01/19/18 06:30 Eos # (Auto) 0.2 K/uL (0.0-0.7) 01/19/18 06:30 Baso # (Auto) 0.1 K/uL (0.0-0.2) 01/19/18 06:30 Sodium 139 mmol/l (132-148) 01/19/18 06:30 Potassium 4.3 MMOL/L (3.6-5.0) 01/19/18 06:30 Chloride 93 mmol/L (98-107) L 01/19/18 06:30 Carbon Dioxide 28 mmol/L (22-30) 01/19/18 06:30 Anion Gap 22 (10-20) H 01/19/18 06:30 BUN 59 mg/dl (9-20) H 01/19/18 06:30 Creatinine 11.3 mg/dl (0.8-1.5) H* 01/19/18 06:30 Est GFR ( Amer) 6 01/19/18 06:30 Est GFR (Non-Af Amer) 5 01/19/18 06:30 POC Glucose (mg/dL) 168 mg/dL (65-110) H 01/19/18 15:49 Random Glucose 217 mg/dL (75-110) H 01/19/18 06:30 Hemoglobin A1c 8.2 % (4.2-6.5) H 01/17/18 17:10 Calcium 8.5 mg/dL (8.4-10.2) 01/19/18 06:30 Total Bilirubin 0.6 mg/dl (0.2-1.3) 01/19/18 06:30 AST 25 U/L (17-59) 01/19/18 06:30 ALT 31 U/L (21-72) 01/19/18 06:30 Alkaline Phosphatase 99 U/L (38-126) 01/19/18 06:30 Total Protein 8.5 G/DL (6.3-8.2) H 01/19/18 06:30 Albumin 4.2 g/dL (3.5-5.0) 01/19/18 06:30 Globulin 4.3 gm/dL (2.2-3.9) H 01/19/18 06:30 Albumin/Globulin Ratio 1.0 (1.0-2.1) 01/19/18 06:30 Triglycerides 464 mg/DL (0-149) H D 01/19/18 06:30 Cholesterol 218 mg/dL (0-199) H 01/19/18 06:30 LDL Cholesterol Direct 82 mg/dL (0-129) 01/19/18 06:30 HDL Cholesterol 31 MG/DL (30-70) 01/19/18 06:30 Urine Color Yellow (YELLOW) 01/17/18:57 Urine Clarity Turbid (Clear) 01/17/18 22:57 Urine pH 6.0 (5.0-8.0) 01/17/18 22:57 Ur Specific [place] 1.009 (1.003-1.030) 01/17/18:57 Urine Protein >=500 mg/dL (NEGATIVE) 01/17/18:57 Urine Glucose (UA) Neg mg/dL (Normal) 01/17/18:57 Urine Ketones Negative mg/dL (NEGATIVE) 01/17/18:57 Urine Blood Large (NEGATIVE) 01/17/18:57 Urine Nitrate Negative (NEGATIVE) 01/17/18:57 Urine Bilirubin Negative (NEGATIVE) 01/17/18:57 Urine Urobilinogen 0.2-1.0 mg/dL (0.2-1.0) 01/17/18:57 Ur Leukocyte Esterase Large Philippe/uL (Negative) 01/17/18:57 Urine RBC (Auto) 1991 /hpf (0-3) H 01/17/18 22:57 Urine WBC Clumps (Auto) Many /hpf (NONE) H 01/17/18:57 Urine Microscopic WBC 52121 /hpf (0-5) H 01/17/18 22:57 - Hospital Course Hospital Course: 57 y/o male, with PMHx of IDDM, ESRD (on dialysis T, , ), DVT, HTN, HLD, PAD, presented for evaluation of dizziness, unsteady gait and fall.Patient was admitted in telemetry for close monitoring and neurochecks, neurology consulted .MRI head showed chronic cerebellar infarct and diffuse microangiopathic changes with small vessel disease. ECho showed normal Ef and no thrombus. Tele monitor showed no arrythmias. CTA head and neck did not show vertebrobasilar insufficiency only LICA stenosis. Patient is already on eliquist and statin and neurology recommended continuation of the same treatment.Most likely reason for his vertigo / dizzinesses is the old cerebellar infarct . Patient was evaluated during this hospitalization by PT and was recommended to continue PT for gait training .He has good family support . Patient prefers to go home and continue PT as outpatient so will provide prescription for outpatient PT . This hospitalization his urine cx was reported positive for Morgani Morgani and was started on rocephin IV for UTI and will discharge home on Po cipro. Nephrology was also consulted and HD was initiated as scheduled during his hospital stay Patient did receive HD today and doing well. At present hemodynamically stable, afebrile Agrees with discharge plan. D/c patient home with family . Follow up with HD as scheduled and with PT as outpatient . 1.Vertigo / Dizziness most likely secondary to old cerebellar infarct and benign positional vertigo continue eliquist and statin meclizine prn PT as outpatient 2. UTI secondary to SS Morgani receive rocephin for 3 days Will d/c on Cipro PO for 7 days 3. ESRD on dialysis , , Nephro consulted Dr. Collier received HFD today' Continue as scheduled outpatient Renal replacement therapy 4. IDDM uncontrolled hemoglobin A1C - 8.2 Increased Levemir to 28 unit BID 5. HTN continue home meds 6. Hx of glaucoma continue eye drops 7. Recurrent DVT on Eliquis 5mg Discharge Exam - Head Exam Head Exam: NORMAL INSPECTION - Eye Exam Eye Exam: EOMI, Normal appearance Pupil Exam: NORMAL ACCOMODATION - ENT Exam ENT Exam: Mucous Membranes Moist, Normal Exam - Neck Exam Neck exam: Full Rom, Normal Inspection - Respiratory Exam Respiratory Exam: Clear to PA & Lateral, NORMAL BREATHING PATTERN. absent: Rales, Rhonchi, Wheezes - Cardiovascular Exam Cardiovascular Exam: REGULAR RHYTHM, RRR. absent: JVD - GI/Abdominal Exam GI & Abdominal Exam: Normal Bowel Sounds, Soft. absent: Distended, Guarding, Rebound, Tenderness - Rectal Exam Rectal Exam: Deferred - Extremities Exam Extremities exam: normal capillary refill, normal inspection, pedal pulses present - Back Exam Back exam: NORMAL INSPECTION - Neurological Exam Neurological exam: Alert, CN II-XII Intact, Oriented x3 - Psychiatric Exam Psychiatric exam: Normal Affect - Skin Skin Exam: Dry, Normal Color, Warm Discharge Plan - Discharge Medications Prescriptions: amLODIPine [Norvasc] 2.5 mg PO DAILY #30 tab Apixaban [Eliquis] 5 mg PO Q12 #60 tab Atorvastatin [Lipitor] 20 mg PO HS #30 tab Calcium Acetate [Phoslo] 1 tab PO TID #120 tab Fenofibrate [Tricor] 48 mg PO DAILY #30 tab Torsemide [Demadex] 5 mg PO DAILY #30 tab - Follow Up Plan Condition: STABLE Disposition: HOME/ ROUTINE Patient education suggested?: Yes Referrals: Paul Collier MD [Staff Provider] -
[2018-01-21 08:32] LABS: HEPATITIS B SURFACE AG Negative (NEGATIVE)
[2018-01-21 08:38] LABS: HEPATITIS B CORE AB NEGATIVE (NEGATIVE)
[2018-01-21 08:49] LABS: HEPATITIS C ANTIBODY NEGATIVE (NEGATIVE)
== END 2018-01-19 19:30 | disposition home or self-care (01) | DRG 56 ==
LOC: H.ER 15:16 → H.ERHOLD 20:59 → H.TEL 23:51
PROVIDERS: ADMIT Internal Medicine; ATTEND Internal Medicine
PROC: 3E0234Z Introduction of Serum, Toxoid and Vaccine into Muscle, Percutaneous Approach (ICD-10-PCS; principal; 2018-01-18)
PROC: 5A1D70Z Performance of Urinary Filtration, Intermittent, Less than 6 Hours Per Day (ICD-10-PCS; 2018-01-19)
DX: I69.398 Other sequelae of cerebral infarction (principal); N18.6 End stage renal disease; N39.0 Urinary tract infection, site not specified; I12.0 Hypertensive chronic kidney disease with stage 5 chronic kidney disease or end stage renal disease; G45.0 Vertebro-basilar artery syndrome; Z79.01 Long term (current) use of anticoagulants; Z79.4 Long term (current) use of insulin; Z89.421 Acquired absence of other right toe(s); Z99.2 Dependence on renal dialysis; H81.10 Benign paroxysmal vertigo, unspecified ear; E11.22 Type 2 diabetes mellitus with diabetic chronic kidney disease; E11.319 Type 2 diabetes mellitus with unspecified diabetic retinopathy without macular edema; E11.51 Type 2 diabetes mellitus with diabetic peripheral angiopathy without gangrene; D64.9 Anemia, unspecified; E11.65 Type 2 diabetes mellitus with hyperglycemia; E66.9 Obesity, unspecified; Z68.34 Body mass index [BMI] 34.0-34.9, adult; E78.00 Pure hypercholesterolemia, unspecified; E78.1 Pure hyperglyceridemia; E78.5 Hyperlipidemia, unspecified; H40.9 Unspecified glaucoma; H54.7 Unspecified visual loss; R39.15 Urgency of urination; Z86.718 Personal history of other venous thrombosis and embolism; Z23 Encounter for immunization; R27.0 Ataxia, unspecified

== ENCOUNTER 2018-02-21 14:24 | Observation (INO) | payer MEDICARE, MEDICAID ==
[2018-02-21 14:24] VITALS: BMI 34.9
--- NOTE | 2018-02-21 14:57 | RAD ---
HISTORY: syncope COMPARISON: Chest x-ray performed 01/17/18 TECHNIQUE: Chest, one view. FINDINGS: Examination limited by habitus and hypoinflation. LUNGS: No focal consolidation. Please note that chest x-ray has limited sensitivity for the detection of pulmonary masses. PLEURA: No significant pleural effusion identified. No definite pneumothorax . CARDIOVASCULAR: Heart size appears within normal limits. Faint atherosclerotic calcification of the aortic knob. OSSEOUS STRUCTURES: Degenerative changes. VISUALIZED UPPER ABDOMEN: Unremarkable. OTHER FINDINGS: None. IMPRESSION: Hypoinflation. No focal consolidation identified.
[2018-02-21 15:38] LABS: VENOUS BLOOD GAS BASE EXCESS 11.4 mmol/L (0.0-2.0); VENOUS BLOOD GAS PCO2 54 mmHg (40-60); VENOUS BLOOD GAS PO2 38 mm/Hg (30-55); VENOUS BLOOD PH 7.45 (7.32-7.43)
[2018-02-21 15:43] LABS: ALB/GLOB RATIO 1.1 (1.0-2.1); ALBUMIN 4.8 g/dL (3.5-5.0); ALT/SGPT 93 U/L (21-72); AST/SGOT 91 U/L (17-59); BLOOD UREA NITROGEN 30 mg/dl (9-20); CALCIUM 8.8 mg/dL (8.4-10.2); GFR NON-AFRICAN AMERICAN 9
[2018-02-21 15:55] LABS: BASO # 0.1 K/uL (0.0-0.2); BASO % 0.6 % (0.0-2.0); EOS # 0.2 K/uL (0.0-0.7); EOS % 1.7 % (0.0-4.0); HEMOGLOBIN 11.9 g/dL (12.0-18.0); LYMPH # 1.6 K/uL (1.0-4.3); LYMPH % 15.6 % (20.0-40.0); MEAN CELL VOLUME 88.7 fl (80.0-94.0); MEAN CORPUSCULAR HEMOGLOBIN 28.5 pg (27.0-31.0); MEAN CORPUSCULAR HGB CONC 32.2 g/dL (33.0-37.0); MEAN PLATELET VOLUME 8.8 fl (7.2-11.7); MONO # 0.8 K/uL (0.0-0.8); MONO % 7.9 % (0.0-10.0); NEUT # 7.8 K/uL (1.8-7.0); NEUT % 74.2 % (50.0-75.0); RBC 4.19 Mil/uL (4.40-5.90); RED CELL DISTRIBUTION WIDTH 18.6 % (11.5-14.5); WHITE BLOOD COUNT 10.5 K/uL (4.8-10.8)
[2018-02-21 15:56] LABS: PARTIAL THROMBOPLASTIN TIME 35.6 Seconds (25.6-37.1)
--- NOTE | 2018-02-21 16:15 | ED PDOC ---
Syncope/Near Syncope/Dizziness Time Seen by Provider: 02/21/18 14:40 Chief Complaint (Nursing): Syncope Chief Complaint (Provider): Syncope History Per: Patient History/Exam Limitations: no limitations Onset/Duration Of Symptoms: Hrs (x 1) Current Symptoms Are (Timing): Still Present Activity At Onset Of Symptoms: Sitting Additional Complaint(s): 57 year old male with a hsitory of diabetes, hypertension and end stage renal disease presents to the ED after a syncopal episode. Patient was three hours into his dialysis treatment when he began coughing and then lost consciousness. Staff at dialysis center began CPR and reported rapid return to baseline. Patient has dialysis Sunday, and Sunday and denies a recent missed appointment. He also denies chest pain, difficulty breathing and abdominal pain. PMD: Shannan Collier Past Medical History Reviewed: Historical Data, Nursing Documentation, Vital Signs Vital Signs: Last Vital Signs Temp 97.4 F L 02/21/18 14:27 Pulse 75 02/21/18 14:27 Resp 16 02/21/18 14:27 BP 165/97 H 02/21/18 14:47 Pulse Ox 99 02/21/18 14:27 - Medical History PMH: Anemia, Diabetes (type I and II), Deep Vein Thrombosis, HTN, Hypercholesterolemia, Chronic Kidney Disease - Surgical History Surgical History: No Surg Hx - Family History Family History: States: Unknown Family Hx, Diabetes - Home Medications Home Medications: Ambulatory Orders Medication Instructions Recorded Latanoprost [Xalatan] 1 drop EACHEYE HS 03/24/16 Dorzolamide 2%/Timolol 0.5% 1 drop EACHEYE Q12 01/31/17 [Cosopt 2%-0.5% Opht] Apixaban [Eliquis] 5 mg PO Q12 #60 tab 01/19/18 Atorvastatin [Lipitor] 20 mg PO HS #30 tab 01/19/18 Fenofibrate [Tricor] 48 mg PO DAILY #30 tab 01/19/18 Meclizine [Antivert] 12.5 mg PO Q6 PRN #30 tab 01/19/18 amLODIPine [Norvasc] 2.5 mg PO DAILY #30 tab 01/19/18 Calcium Acetate [Phoslo] 667 mg PO TID 02/21/18 Insulin Aspart, Recombinant 22 unit SC TID 02/21/18 [Novolog] Insulin Detemir [Levemir] 25 unit SC BID 02/21/18 Sevelamer Carbonate [Renvela] 3 tab PO WM 02/21/18 Torsemide [Demadex] 5 mg PO DAILY 02/21/18 Vitamin B Complex/Vit C/Folic 1 tab PO DAILY 02/21/18 [Nephro-Madhav] acetaZOLAMIDE [Diamox 250 mg Tab] 250 mg PO Q12 02/21/18 - Allergies Allergies/Adverse Reactions: Allergies Allergy/AdvReac Type Severity Reaction Status Date / Time No Known Allergies Allergy Verified 02/21/18 14:27 Review of Systems ROS Statement: Except As Marked, All Systems Reviewed And Found Negative Respiratory: Positive for: Cough. Negative for: Shortness of Breath Neurological: Positive for: Dizziness Physical Exam - Reviewed Nursing Documentation Reviewed: Yes Vital Signs Reviewed: Yes - Physical Exam Appears: Positive for: Non-toxic, No Acute Distress Head Exam: Positive for: ATRAUMATIC, NORMAL INSPECTION, NORMOCEPHALIC Skin: Positive for: Normal Color, Warm, Dry Eye Exam: Positive for: EOMI, Normal appearance, PERRL Neck: Positive for: Normal, Painless ROM Cardiovascular/Chest: Positive for: Regular Rate, Rhythm, Chest Non Tender Respiratory: Positive for: CNT, Normal Breath Sounds Gastrointestinal/Abdominal: Positive for: Normal Exam, Soft. Negative for: Tenderness Back: Positive for: Normal Inspection Extremity: Positive for: Normal ROM, Other (dialysis access in left arm positive thrill ). Negative for: Deformity Neurologic/Psych: Positive for: Alert, de alcholizer II-XII (intact), Oriented (x 3). Negative for: Motor/Sensory Deficits - Laboratory Results Result Diagrams: 02/21/18 15:24 02/21/18 15:24 - ECG O2 Sat by Pulse Oximetry: 99 (RA) Pulse Ox Interpretation: Normal Medical Decision Making Medical Decision Makin:41 Initial Plan: --VBG --CT Head --EKG --Alcohol --CMP --Troponin --CBC --PTT/INR --CXR --Glucose --UA EKG: sinus rhythm at 76 with prolonged QT 14:53 CXR FINDINGS: Examination limited by habitus and hypoinflation. LUNGS: No focal consolidation. Please note that chest x-ray has limited sensitivity for the detection of pulmonary masses. PLEURA: No significant pleural effusion identified. No definite pneumothorax . CARDIOVASCULAR: Heart size appears within normal limits. Faint atherosclerotic calcification of the aortic knob. OSSEOUS STRUCTURES: Degenerative changes. VISUALIZED UPPER ABDOMEN: Unremarkable. OTHER FINDINGS: None. IMPRESSION: Hypoinflation. No focal consolidation identified. Blood work was reviewed and reveals normal lactate, potassium of 3.0 and Troponin of .02. 16:[address] FINDINGS: HEMORRHAGE: No intracranial hemorrhage. BRAIN: No mass effect or edema. No atrophy or chronic microvascular ischemic changes. VENTRICLES: Unremarkable. No hydrocephalus. CALVARIUM: Unremarkable. PARANASAL SINUSES: Unremarkable as visualized. No significant inflammatory changes. MASTOID AIR CELLS: Unremarkable as visualized. No inflammatory changes. OTHER FINDINGS: Stable bilateral basal ganglia calcifications. IMPRESSION: No acute intracranial abnormalities. No significant findings to account for the clinical presentation. No significant interval change compared to the prior examination(s). 16:13 --Patient will be kept for observation in setting of end stage renal disease and CPR initiation. Scribe Attestation: Documented by Malgorzata Whaley, acting as a scribe for Ac Dumont III, DO Provider Scribe Attestation: All medical record entries made by the Scribe were at my direction and personally dictated by me. I have reviewed the chart and agree that the record accurately reflects my personal performance of the history, physical exam, medical decision making, and the department course for this patient. I have also personally directed, reviewed, and agree with the discharge instructions and disposition. Disposition - Patient ED Disposition Is Patient to be Admitted: Yes - Disposition - Pt Status Changed To: Hospital Disposition Of: Observation
--- NOTE | 2018-02-21 16:46 | CT ---
Date of service: 02/21/2018 PROCEDURE: CT HEAD WITHOUT CONTRAST. HISTORY: r/o ICH COMPARISON: 11/02/2015 and 01/17/[address] scans of the head TECHNIQUE: Axial computed tomography images were obtained through the head/brain without intravenous contrast. Supplemental Coronal and Sagittal projections created and reviewed. Radiation dose: Total exam DLP = 836.95 mGy-cm. This CT exam was performed using one or more of the following dose reduction techniques: Automated exposure control, adjustment of the mA and/or kV according to patient size, and/or use of iterative reconstruction technique. FINDINGS: HEMORRHAGE: No intracranial hemorrhage. BRAIN: No mass effect or edema. No atrophy or chronic microvascular ischemic changes. VENTRICLES: Unremarkable. No hydrocephalus. CALVARIUM: Unremarkable. PARANASAL SINUSES: Unremarkable as visualized. No significant inflammatory changes. MASTOID AIR CELLS: Unremarkable as visualized. No inflammatory changes. OTHER FINDINGS: Stable bilateral basal ganglia calcifications. IMPRESSION: No acute intracranial abnormalities. No significant findings to account for the clinical presentation. No significant interval change compared to the prior examination(s).
[2018-02-21] MEDS ORDERED: Sod Polystyrene Sulf 15 gm/60 ml Susp PO ONE (17:48)
--- NOTE | 2018-02-21 19:14 | CP.PCM.HP ---
<Louann Gutierrez - Last Filed: 02/21/18 21:49> History of Present Illness - History of Present Illness History of Present Illness: 57 y/o male, with PMHx of IDDM, ESRD (on dialysis , , ), DVT, HTN, HLD, PAD, CVA, admitted to [facility] for syncopal episode. Patient presented to ER after he had a syncopal episode at Dialysis center, patient reports coughing and all the sudden LOC. Patient denies any nausea, blurred vision, vomiting, palpitations, bowel/urinary incontinence, dizziness, chest pain, SOB or weakness. Patient is s/p CPR at the HD center and rapid return to his baseline. Patient reports one more same episode of syncope at home 2 weeks ago and didnt seek any medical care. He denies any numbness/tingling. No fevers/chills. ROS: as per HPI, 12 systems reviewed. [facility] PMHx: PAD, IDDM, HTN, ESRD, HLD, recurrent DVT Meds: as per med rec ALL: NKDA Psurghx: right hallux amputation, RLE bypass, left hallux amputation Social: denies etoh/tobacco/drug abuse ER Course: Afebrile, HR 75, 165/97, Spo2 99 CBC and CMP reviewed CT head: Negative EKG reviewed S/p Zofran Present on Admission - Present on Admission Any Indicators Present on Admission: Yes History of DVT/PE: Yes Past Patient History - Past Medical History & Family History Past Medical History?: Yes - Past Social History Smoking Status: Never Smoked - CARDIAC Hx Cardiac Disorders: Yes - PULMONARY Hx Respiratory Disorders: No - NEUROLOGICAL Hx Neurological Disorder: No - HEENT Hx HEENT Problems: Yes Hx Glaucoma: Yes - RENAL Hx Chronic Kidney Disease: Yes - ENDOCRINE/METABOLIC Hx Endocrine Disorders: Yes - HEMATOLOGICAL/ONCOLOGICAL Hx Anemia: Yes - INTEGUMENTARY Hx Dermatological Problems: No - MUSCULOSKELETAL/RHEUMATOLOGICAL Hx Falls: No - GASTROINTESTINAL Hx Gastrointestinal Disorders: No - GENITOURINARY/GYNECOLOGICAL Hx Genitourinary Disorders: No - PSYCHIATRIC Hx Psychophysiologic Disorder: No Hx Substance Use: No - SURGICAL HISTORY Hx Surgeries: Yes Hx Angioplasty: Yes (august-2011) Other/Comment: amputation of 5th digit on left foot-2011(digit infection); right eye surgery x1 month ago (glaucoma) - ANESTHESIA Hx Anesthesia: Yes Hx Anesthesia Reactions: No Hx Malignant Hyperthermia: No Meds Allergies/Adverse Reactions: Allergies Allergy/AdvReac Type Severity Reaction Status Date / Time No Known Allergies Allergy Verified 02/21/18 14:27 Physical Exam - Constitutional Appears: No Acute Distress - Head Exam Head Exam: NORMAL INSPECTION - Eye Exam Eye Exam: EOMI, Normal appearance, PERRL - ENT Exam ENT Exam: Mucous Membranes Moist - Neck Exam Neck exam: Positive for: Normal Inspection - Respiratory Exam Respiratory Exam: Clear to Auscultation Bilateral, NORMAL BREATHING PATTERN - Cardiovascular Exam Cardiovascular Exam: REGULAR RHYTHM, +S1, +S2 - GI/Abdominal Exam GI & Abdominal Exam: Normal Bowel Sounds, Soft - Extremities Exam Additional comments: Left arm fistula b/l lower ext hyperpigmentation, right LE graft scars Amputation of R big toe and Left small toe - Back Exam Back exam: absent: CVA tenderness (L), CVA tenderness (R) - Neurological Exam Neurological exam: Alert, CN II-XII Intact, Oriented x3 - Psychiatric Exam Psychiatric exam: Normal Affect - Skin Skin Exam: Dry, Warm Results - Vital Signs Recent Vital Signs: Last Vital Signs Temp 98.1 F 02/21/18 18:15 Pulse 80 02/21/18 18:15 Resp 18 02/21/18 18:15 BP 111/73 02/21/18 18:55 Pulse Ox 98 02/21/18 17:49 - Labs Result Diagrams: 02/21/18 15:24 02/21/18 15:24 Labs: Laboratory Results - last 24 hr 02/21/18 02/21/18 02/21/18 14:30 15:24 15:24 WBC 10.5 RBC 4.19 L Hgb 11.9 L Hct 37.2 MCV 88.7 D MCH 28.5 MCHC 32.2 L RDW 18.6 H Plt Count 147 MPV 8.8 Neut % (Auto) 74.2 Lymph % (Auto) 15.6 L Mcpherson % (Auto) 7.9 Eos % (Auto) 1.7 Baso % (Auto) 0.6 Neut # (Auto) 7.8 H Lymph # (Auto) 1.6 Mcpherson # (Auto) 0.8 Eos # (Auto) 0.2 Baso # (Auto) 0.1 PT INR APTT pO2 VBG pH VBG pCO2 VBG HCO3 VBG Total CO2 VBG O2 Sat (Calc) VBG Base Excess VBG Potassium Glucose Lactate FiO2 Sodium 139 Potassium 3.0 L Chloride 93 L Carbon Dioxide 31 H Anion Gap 18 BUN 30 H Creatinine 6.2 H Est GFR ( Amer) 11 Est GFR (Non-Af Amer) 9 POC Glucose (mg/dL) 138 H Random Glucose 146 H Calcium 8.8 Total Bilirubin 0.7 AST 91 H D ALT 93 H D Alkaline Phosphatase 66 Troponin I 0.0260 Total Protein 9.1 H Albumin 4.8 Globulin 4.3 H Albumin/Globulin Ratio 1.1 Venous Blood Potassium Alcohol, Quantitative < 10 02/21/18 02/21/18 15:24 15:30 WBC RBC Hgb Hct MCV MCH MCHC RDW Plt Count MPV Neut % (Auto) Lymph % (Auto) Mcpherson % (Auto) Eos % (Auto) Baso % (Auto) Neut # (Auto) Lymph # (Auto) Mcpherson # (Auto) Eos # (Auto) Baso # (Auto) PT 11.0 INR 1.0 APTT 35.6 pO2 38 VBG pH 7.45 H VBG pCO2 54 VBG HCO3 33.2 VBG Total CO2 39.2 H VBG O2 Sat (Calc) 71.1 H VBG Base Excess 11.4 H VBG Potassium 2.8 L Glucose 150 H Lactate 1.0 FiO2 21.0 Sodium 138.0 Potassium Chloride 95.0 L Carbon Dioxide Anion Gap BUN Creatinine Est GFR ( Amer) Est GFR (Non-Af Amer) POC Glucose (mg/dL) Random Glucose Calcium Total Bilirubin AST ALT Alkaline Phosphatase Troponin I Total Protein Albumin Globulin Albumin/Globulin Ratio Venous Blood Potassium 2.8 L Alcohol, Quantitative Assessment & Plan - Assessment and Plan (Free Text) Assessment: A/P: 57 y/o male, with PMHx of IDDM, ESRD (on dialysis ), DVT, HTN, HLD, PAD, CVA admitted to [facility] for syncopal episode. Syncopal episode, likely due to vasovagal vs hypotension vs vertebro-basilar insufficiency - S/p HD - Patient had full work up for dizziness last month - MRI head 01/24: chronic cerebellar infarct and diffuse microangiopathic changes with small vessel disease - ECho 01/24: normal Ef and no thrombus - CTA head and neck 01/24: no vertebrobasilar insufficiency only LICA stenosis - 02/21/18: Head CT: No acute changes - CXR: No consolidations - EKG today: NSR, QT prolongation, T wave changes - Nephro consult Dr. Collier - f/u recommendations - F/u morning EKG in morning - Tropx1 negative, f/u trop x2 - PT/OT eval - Admit to tele ESRD on dialysis , , - Nephro consult Dr. Collier - f/u recommendations - C/W phospate binders - C/w HD IDDM -hemoglobin A1C - 8.2 this year -Levemir 25 g BID -Sliding scale/lispro -Hypoglycemic protocol -resume home meds -monitor ACHS HTN - Chronic, controlled - c/w home meds Hypokalemia - Replete as needed Hx of glaucoma - c/w Latanaprost - C/W Timolol eye drops Anemia of Chronic disease - Monitor Recurrent DVT - C/w Eliquis 5mg DVT Prophylaxis - Eliquis 5mg QD Diet -renal Code status -full code <Elio Jacome D - Last Filed: 02/22/18 10:46> Results - Vital Signs Recent Vital Signs: Last Vital Signs Temp 98.8 F 02/21/18 20:10 Pulse 77 02/22/18 06:40 Resp 18 02/22/18 06:40 BP 132/84 02/22/18 06:40 Pulse Ox 98 02/22/18 06:40 - Labs Result Diagrams: 02/22/18 06:18 02/22/18 06:18 Labs: Laboratory Results - last 24 hr 02/21/18 02/21/18 02/21/18 14:30 15:24 15:24 WBC 10.5 RBC 4.19 L Hgb 11.9 L Hct 37.2 MCV 88.7 D MCH 28.5 MCHC 32.2 L RDW 18.6 H Plt Count 147 MPV 8.8 Neut % (Auto) 74.2 Lymph % (Auto) 15.6 L Mcpherson % (Auto) 7.9 Eos % (Auto) 1.7 Baso % (Auto) 0.6 Neut # (Auto) 7.8 H Lymph # (Auto) 1.6 Mcpherson # (Auto) 0.8 Eos # (Auto) 0.2 Baso # (Auto) 0.1 PT INR APTT pO2 VBG pH VBG pCO2 VBG HCO3 VBG Total CO2 VBG O2 Sat (Calc) VBG Base Excess VBG Potassium Glucose Lactate FiO2 Sodium 139 Potassium 3.0 L Chloride 93 L Carbon Dioxide 31 H Anion Gap 18 BUN 30 H Creatinine 6.2 H Est GFR ( Amer) 11 Est GFR (Non-Af Amer) 9 POC Glucose (mg/dL) 138 H Random Glucose 146 H Calcium 8.8 Total Bilirubin 0.7 AST 91 H D ALT 93 H D Alkaline Phosphatase 66 Troponin I 0.0260 Total Protein 9.1 H Albumin 4.8 Globulin 4.3 H Albumin/Globulin Ratio 1.1 Venous Blood Potassium Alcohol, Quantitative < 10 02/21/18 02/21/18 02/21/18 15:24 15:30 17:52 WBC RBC Hgb Hct MCV MCH MCHC RDW Plt Count MPV Neut % (Auto) Lymph % (Auto) Mcpherson % (Auto) Eos % (Auto) Baso % (Auto) Neut # (Auto) Lymph # (Auto) Mcpherson # (Auto) Eos # (Auto) Baso # (Auto) PT 11.0 INR 1.0 APTT 35.6 pO2 38 VBG pH 7.45 H VBG pCO2 54 VBG HCO3 33.2 VBG Total CO2 39.2 H VBG O2 Sat (Calc) 71.1 H VBG Base Excess 11.4 H VBG Potassium 2.8 L Glucose 150 H Lactate 1.0 FiO2 21.0 Sodium 138.0 Potassium Chloride 95.0 L Carbon Dioxide Anion Gap BUN Creatinine Est GFR ( Amer) Est GFR (Non-Af Amer) POC Glucose (mg/dL) 167 H Random Glucose Calcium Total Bilirubin AST ALT Alkaline Phosphatase Troponin I Total Protein Albumin Globulin Albumin/Globulin Ratio Venous Blood Potassium 2.8 L Alcohol, Quantitative 02/21/18 02/21/18 02/22/18 21:59 23:20 06:18 WBC 17.1 H D RBC 4.07 L Hgb 11.4 L Hct 37.0 MCV 90.9 D MCH 28.1 MCHC 30.9 L RDW 18.6 H Plt Count 164 MPV 8.8 Neut % (Auto) 79.0 H Lymph % (Auto) 13.0 L Mcpherson % (Auto) 6.6 Eos % (Auto) 0.7 Baso % (Auto) 0.7 Neut # (Auto) 13.5 H Lymph # (Auto) 2.2 Mcpherson # (Auto) 1.1 H Eos # (Auto) 0.1 Baso # (Auto) 0.1 PT INR APTT pO2 VBG pH VBG pCO2 VBG HCO3 VBG Total CO2 VBG O2 Sat (Calc) VBG Base Excess VBG Potassium Glucose Lactate FiO2 Sodium Potassium Chloride Carbon Dioxide Anion Gap BUN Creatinine Est GFR ( Amer) Est GFR (Non-Af Amer) POC Glucose (mg/dL) 294 H Random Glucose Calcium Total Bilirubin AST ALT Alkaline Phosphatase Troponin I 0.0670 Total Protein Albumin Globulin Albumin/Globulin Ratio Venous Blood Potassium Alcohol, Quantitative 02/22/18 02/22/18 02/22/18 06:18 07:42 08:39 WBC RBC Hgb Hct MCV MCH MCHC RDW Plt Count MPV Neut % (Auto) Lymph % (Auto) Mcpherson % (Auto) Eos % (Auto) Baso % (Auto) Neut # (Auto) Lymph # (Auto) Mcpherson # (Auto) Eos # (Auto) Baso # (Auto) PT INR APTT pO2 VBG pH VBG pCO2 VBG HCO3 VBG Total CO2 VBG O2 Sat (Calc) VBG Base Excess VBG Potassium Glucose Lactate FiO2 Sodium 139 Potassium 3.9 Chloride 92 L Carbon Dioxide 33 H Anion Gap 18 BUN 41 H Creatinine 9.2 H* D Est GFR ( Amer) 7 Est GFR (Non-Af Amer) 6 POC Glucose (mg/dL) 242 H 195 H Random Glucose 213 H Calcium 8.2 L Total Bilirubin AST ALT Alkaline Phosphatase Troponin I 0.1210 H Total Protein Albumin Globulin Albumin/Globulin Ratio Venous Blood Potassium Alcohol, Quantitative Attending/Attestation - Attestation I have personally seen and examined this patient.: Yes I have fully participated in the care of the patient.: Yes I have reviewed all pertinent clinical information: Yes Notes (Text): 02/22/18 10:45 Patient seen and examined with resident. Case discussed and agreed with assessment and plan of management.
[2018-02-21] MEDS ORDERED: Potassium Chloride 20 mEq ER Tab PO ONE (19:25)
[2018-02-21] MEDS ORDERED: Patient's Own Med (Dorzolamide 2%/Timolol 0.5% [Cosopt 2%-0.5% Opht] 1 DROP) EACHEYE SCH (21:00)
[2018-02-21] MEDS: Insulin Detemir 100 Units/ml Inj SC SCH (21:05)
[2018-02-21] MEDS: Potassium CL 10 MEQ/50 ML 50 ML IVPB SCH ×2 (21:09→21:41)
[2018-02-21] MEDS ORDERED: Glucagon Recombinant 1 mg Inj IM PRN (21:25)
[2018-02-21] MEDS ORDERED: Dextrose 50% SYRINGE Inj (50 ml) IV PRN (21:25)
[2018-02-21] MEDS ORDERED: Latanoprost 0.005% Opht SOUTION OU SCH (22:00)
[2018-02-21] MEDS ORDERED: Insulin Lispro (humaLOG) 100 Units/ml Inj SC SCH (22:00)
[2018-02-21] MEDS: Insulin Lispro (humaLOG) 100 Units/ml Inj SC SCH (22:09)
[2018-02-22 02:53] VITALS: O2SAT 98
[2018-02-22 06:45] LABS: BASO # 0.1 K/uL (0.0-0.2); BASO % 0.7 % (0.0-2.0); EOS # 0.1 K/uL (0.0-0.7); EOS % 0.7 % (0.0-4.0); HEMOGLOBIN 11.4 g/dL (12.0-18.0); LYMPH # 2.2 K/uL (1.0-4.3); MEAN CELL VOLUME 90.9 fl (80.0-94.0); MEAN CORPUSCULAR HEMOGLOBIN 28.1 pg (27.0-31.0); MEAN CORPUSCULAR HGB CONC 30.9 g/dL (33.0-37.0); MEAN PLATELET VOLUME 8.8 fl (7.2-11.7); MONO # 1.1 K/uL (0.0-0.8); MONO % 6.6 % (0.0-10.0); NEUT # 13.5 K/uL (1.8-7.0); NRBC % 0.1 % (0.0-0.0); RBC 4.07 Mil/uL (4.40-5.90); RED CELL DISTRIBUTION WIDTH 18.6 % (11.5-14.5); WHITE BLOOD COUNT 17.1 K/uL (4.8-10.8)
[2018-02-22 07:15] LABS: CALCIUM 8.2 mg/dL (8.4-10.2); TROPONIN I 0.121 ng/mL (0.00-0.120)
--- NOTE | 2018-02-22 08:40 | CARD ---
APPROVED REPORT Date of service: 02/21/2018 EKG Measurement Heart [id number] ID [id number] <Conclusion> Normal sinus rhythm Prolonged QT Abnormal ECG
[2018-02-22] MEDS: Insulin Detemir 100 Units/ml Inj SC SCH (08:55)
[2018-02-22] MEDS: Insulin Lispro (humaLOG) 100 Units/ml Inj SC SCH (08:56)
[2018-02-22] MEDS ORDERED: INSULIN ASPART SC SCH (09:00)
[2018-02-22] MEDS ORDERED: Multivitamin Vitamin B Complex (Nephro-Vite) Tab PO SCH (09:00)
[2018-02-22] MEDS ORDERED: Patient's Own Med (Torsemide [Demadex] 5 mg) PO SCH (09:00)
[2018-02-22] MEDS ORDERED: Pantoprazole 40 mg EC Tab PO SCH (09:00)
[2018-02-22] MEDS ORDERED: Dorzolamide 2% Ophth Soln OU SCH (09:00)
[2018-02-22] MEDS ORDERED: [UNRECOGNIZED DRUG - OTHER] SC SCH (09:00)
--- NOTE | 2018-02-22 09:01 | CARD ---
APPROVED REPORT Date of service: 02/21/2018 EKG Measurement Heart [id number] <Conclusion> Normal sinus rhythm Possible inferior infarct, age undetermined Abnormal ECG
--- NOTE | 2018-02-22 11:01 | CP.PCM.DIS ---
<Franklyn Cherry - Last Filed: 02/22/18 12:57> Provider - Provider Date of Admission: 02/21/18 16:13 Attending physician: Elio Jacome MD Time Spent in preparation of Discharge (in minutes): 20 Diagnosis - Discharge Diagnosis (1) DVT (deep venous thrombosis) Status: Acute (2) Near syncope Status: Acute (3) Chronic kidney disease (CKD) Status: Chronic Hospital Course - Lab Results Lab Results: Most Recent Lab Values WBC 17.1 K/uL (4.8-10.8) H D 02/22/18 06:18 RBC 4.07 Mil/uL (4.40-5.90) L 02/22/18 06:18 Hgb 11.4 g/dL (12.0-18.0) L 02/22/18 06:18 Hct 37.0 % (35.0-51.0) 02/22/18 06:18 MCV 90.9 fl (80.0-94.0) D 02/22/18 06:18 MCH 28.1 pg (27.0-31.0) 02/22/18 06:18 MCHC 30.9 g/dL (33.0-37.0) L 02/22/18 06:18 RDW 18.6 % (11.5-14.5) H 02/22/18 06:18 Plt Count 164 K/uL (130-400) 02/22/18 06:18 MPV 8.8 fl (7.2-11.7) 02/22/18 06:18 Neut % (Auto) 79.0 % (50.0-75.0) H 02/22/18 06:18 Lymph % (Auto) 13.0 % (20.0-40.0) L 02/22/18 06:18 Archuleta % (Auto) 6.6 % (0.0-10.0) 02/22/18 06:18 Eos % (Auto) 0.7 % (0.0-4.0) 02/22/18 06:18 Baso % (Auto) 0.7 % (0.0-2.0) 02/22/18 06:18 Neut # (Auto) 13.5 K/uL (1.8-7.0) H 02/22/18 06:18 Lymph # (Auto) 2.2 K/uL (1.0-4.3) 02/22/18 06:18 Archuleta # (Auto) 1.1 K/uL (0.0-0.8) H 02/22/18 06:18 Eos # (Auto) 0.1 K/uL (0.0-0.7) 02/22/18 06:18 Baso # (Auto) 0.1 K/uL (0.0-0.2) 02/22/18:18 PT 11.0 Seconds (9.8-13.1) 02/21/18 15:24 INR 1.0 02/21/18 15:24 APTT 35.6 Seconds (25.6-37.1) 02/21/18 15:24 pO2 38 mm/Hg (30-55) 02/21/18 15:30 VBG pH 7.45 (7.32-7.43) H 02/21/18 15:30 VBG pCO2 54 mmHg (40-60) 02/21/18 15:30 VBG HCO3 33.2 mmol/L 02/21/18 15:30 VBG Total CO2 39.2 mmol/L (22-28) H 02/21/18 15:30 VBG O2 Sat (Calc) 71.1 % (40-65) H 02/21/18 15:30 VBG Base Excess 11.4 mmol/L (0.0-2.0) H 02/21/18 15:30 VBG Potassium 2.8 mmol/L (3.6-5.2) L 02/21/18 15:30 Sodium 138.0 mmol/L (132-148) 02/21/18 15:30 Chloride 95.0 mmol/L (98-107) L 02/21/18 15:30 Glucose 150 mg/dL (75-110) H 02/21/18 15:30 Lactate 1.0 mmol/L (0.7-2.1) 02/21/18 15:30 FiO2 21.0 % 02/21/18 15:30 Sodium 139 mmol/l (132-148) 02/22/18:18 Potassium 3.9 MMOL/L (3.6-5.0) 02/22/18:18 Chloride 92 mmol/L (98-107) L 02/22/18 06:18 Carbon Dioxide 33 mmol/L (22-30) H 02/22/18 06:18 Anion Gap 18 (10-20) 02/22/18 06:18 BUN 41 mg/dl (9-20) H 02/22/18 06:18 Creatinine 9.2 mg/dl (0.8-1.5) H* D 02/22/18 06:18 Est GFR ( Amer) 7 02/22/18 06:18 Est GFR (Non-Af Amer) 6 02/22/18 06:18 POC Glucose (mg/dL) 195 mg/dL (65-110) H 02/22/18 08:39 Random Glucose 213 mg/dL (75-110) H 02/22/18 06:18 Calcium 8.2 mg/dL (8.4-10.2) L 02/22/18 06:18 Total Bilirubin 0.7 mg/dl (0.2-1.3) 02/21/18 15:24 AST 91 U/L (17-59) H D 02/21/18 15:24 ALT 93 U/L (21-72) H D 02/21/18 15:24 Alkaline Phosphatase 66 U/L (38-126) 02/21/18 15:24 Troponin I 0.1210 ng/mL (0.00-0.120) H 02/22/18 06:18 Total Protein 9.1 G/DL (6.3-8.2) H 02/21/18 15:24 Albumin 4.8 g/dL (3.5-5.0) 02/21/18 15:24 Globulin 4.3 gm/dL (2.2-3.9) H 02/21/18 15:24 Albumin/Globulin Ratio 1.1 (1.0-2.1) 02/21/18 15:24 Venous Blood Potassium 2.8 mmol/L (3.6-5.2) L 02/21/18 15:30 Alcohol, Quantitative < 10 mg/dl (0-10) 02/21/18 15:24 - Hospital Course Hospital Course: This is a 57 yo male with PMH of IDDM, ESRD (on dialysis T, , ), DVT, HTN, HLD, PAD, CVA, admitted to [facility] for syncopal episode. Patient presented to ER after had syncoppal episode at Dialysis center after coughing and sudden LOC. Upon arrival patient also complained of chest pain, due to Chest compression that was done in center with rapid rapid return to his baseline. In ER patient was afebrile with HR of 75, 165/[address] head no acute change but there is LICA stenosis noted before. chest Xray no consolidation, EKG NSR, QT prolongation, T wave changes. Troponin x1 negative, x2 positive. Patient Patient was admitted to Tele. Nephro was consulted. Patient was seen today, and insisting in leaving the hospital AMA, he state he had a important appointment with Ophthalmology for his glaucoma and he have been waiting for that appointment for months. Patient was explained that leaving AMA put him on risk of having a recurrent Syncope with possible fall and trauma, NH was unable to be fully evaluated, and patient have increase risk for ex acerbation of symptoms/disease and can cause . Patient was advised if symptoms recurs, worsen, persist patient should go to ER immediately. Patient was advised to see his PCP as soon as possible for follow up. - Date & Time of H&P Date of H&P: 02/21/18 Time of H&P: 19:15 Discharge Exam - Head Exam Head Exam: NORMAL INSPECTION - Eye Exam Pupil Exam: Fixed, Mydriatic Additional comments: FIxed mydriasis not reactive to light - Neck Exam Neck exam: Full Rom - Respiratory Exam Respiratory Exam: Clear to PA & Lateral, NORMAL BREATHING PATTERN, UNREMARKABLE - Cardiovascular Exam Cardiovascular Exam: REGULAR RHYTHM, +S1, +S2 - GI/Abdominal Exam GI & Abdominal Exam: Normal Bowel Sounds, Unremarkable - Neurological Exam Neurological exam: Alert, Oriented x3 - Psychiatric Exam Psychiatric exam: Normal Affect, Normal Mood - Skin Skin Exam: Dry, Intact, Normal Color, Warm Discharge Plan - Follow Up Plan Condition: FAIR Disposition: AGAINST MEDICAL ADVICE Patient education suggested?: Yes Instructions: Syncope (Fainting) <Jeanette Christianson - Last Filed: 02/23/18 09:57> Provider - Provider Date of Admission: 02/21/18 16:13 Attending physician: Elio Jacome MD Hospital Course - Lab Results Lab Results: Most Recent Lab Values WBC 17.1 K/uL (4.8-10.8) H D 02/22/18 06:18 RBC 4.07 Mil/uL (4.40-5.90) L 02/22/18 06:18 Hgb 11.4 g/dL (12.0-18.0) L 02/22/18 06:18 Hct 37.0 % (35.0-51.0) 02/22/18 06:18 MCV 90.9 fl (80.0-94.0) D 02/22/18 06:18 MCH 28.1 pg (27.0-31.0) 02/22/18 06:18 MCHC 30.9 g/dL (33.0-37.0) L 02/22/18 06:18 RDW 18.6 % (11.5-14.5) H 02/22/18 06:18 Plt Count 164 K/uL (130-400) 02/22/18 06:18 MPV 8.8 fl (7.2-11.7) 02/22/18 06:18 Neut % (Auto) 79.0 % (50.0-75.0) H 02/22/18 06:18 Lymph % (Auto) 13.0 % (20.0-40.0) L 02/22/18 06:18 Archuleta % (Auto) 6.6 % (0.0-10.0) 02/22/18 06:18 Eos % (Auto) 0.7 % (0.0-4.0) 02/22/18 06:18 Baso % (Auto) 0.7 % (0.0-2.0) 02/22/18 06:18 Neut # (Auto) 13.5 K/uL (1.8-7.0) H 02/22/18 06:18 Lymph # (Auto) 2.2 K/uL (1.0-4.3) 02/22/18 06:18 Archuleta # (Auto) 1.1 K/uL (0.0-0.8) H 02/22/18 06:18 Eos # (Auto) 0.1 K/uL (0.0-0.7) 02/22/18 06:18 Baso # (Auto) 0.1 K/uL (0.0-0.2) 02/22/18 06:18 PT 11.0 Seconds (9.8-13.1) 02/21/18 15:24 INR 1.0 02/21/18 15:24 APTT 35.6 Seconds (25.6-37.1) 02/21/18 15:24 pO2 38 mm/Hg (30-55) 02/21/18 15:30 VBG pH 7.45 (7.32-7.43) H 02/21/18 15:30 VBG pCO2 54 mmHg (40-60) 02/21/18 15:30 VBG HCO3 33.2 mmol/L 02/21/18 15:30 VBG Total CO2 39.2 mmol/L (22-28) H 02/21/18 15:30 VBG O2 Sat (Calc) 71.1 % (40-65) H 02/21/18 15:30 VBG Base Excess 11.4 mmol/L (0.0-2.0) H 02/21/18 15:30 VBG Potassium 2.8 mmol/L (3.6-5.2) L 02/21/18 15:30 Sodium 138.0 mmol/L (132-148) 02/21/18 15:30 Chloride 95.0 mmol/L (98-107) L 02/21/18 15:30 Glucose 150 mg/dL (75-110) H 02/21/18 15:30 Lactate 1.0 mmol/L (0.7-2.1) 02/21/18 15:30 FiO2 21.0 % 02/21/18 15:30 Sodium 139 mmol/l (132-148) 02/22/18 06:18 Potassium 3.9 MMOL/L (3.6-5.0) 02/22/18 06:18 Chloride 92 mmol/L (98-107) L 02/22/18 06:18 Carbon Dioxide 33 mmol/L (22-30) H 02/22/18 06:18 Anion Gap 18 (10-20) 02/22/18:18 BUN 41 mg/dl (9-20) H 02/22/18 06:18 Creatinine 9.2 mg/dl (0.8-1.5) H* D 02/22/18 06:18 Est GFR ( Amer) 7 02/22/18 06:18 Est GFR (Non-Af Amer) 6 02/22/18 06:18 POC Glucose (mg/dL) 195 mg/dL (65-110) H 02/22/18 08:39 Random Glucose 213 mg/dL (75-110) H 02/22/18 06:18 Hemoglobin A1c 8.1 % (4.2-6.5) H 02/22/18 06:18 Calcium 8.2 mg/dL (8.4-10.2) L 02/22/18 06:18 Total Bilirubin 0.7 mg/dl (0.2-1.3) 02/21/18 15:24 AST 91 U/L (17-59) H D 02/21/18 15:24 ALT 93 U/L (21-72) H D 02/21/18 15:24 Alkaline Phosphatase 66 U/L (38-126) 02/21/18 15:24 Troponin I 0.1210 ng/mL (0.00-0.120) H 02/22/18 06:18 Total Protein 9.1 G/DL (6.3-8.2) H 02/21/18 15:24 Albumin 4.8 g/dL (3.5-5.0) 02/21/18 15:24 Globulin 4.3 gm/dL (2.2-3.9) H 02/21/18 15:24 Albumin/Globulin Ratio 1.1 (1.0-2.1) 02/21/18 15:24 Prolactin 15.6 ng/mL (3.7-17.9) 02/22/18 06:18 Venous Blood Potassium 2.8 mmol/L (3.6-5.2) L 02/21/18 15:30 Alcohol, Quantitative < 10 mg/dl (0-10) 02/21/18 15:24 Attending/Attestation - Attestation I have personally seen and examined this patient.: Yes I have fully participated in the care of the patient.: Yes I have reviewed all pertinent clinical information, including history, physical exam and plan: Yes Notes (Text): 02/23/18 09:56 Seen, examined, and discussed with resident. Agree with findings and plan as above. Patient was admitted obs for syncope NOT PE OR DVT. Pt signed AMA.
[2018-02-22 12:31] LABS: PROLACTIN 15.6 ng/mL (3.7-17.9)
[2018-02-22 17:44] VITALS: BP 132/66; PULSE 88; RESP 16; TEMP 98.2
== END 2018-02-22 12:45 | disposition left against medical advice (07) ==
LOC: H.ER 14:24 → H.ERHOLD 16:13
DX: R55 Syncope and collapse (principal); I12.0 Hypertensive chronic kidney disease with stage 5 chronic kidney disease or end stage renal disease; N18.6 End stage renal disease; Z79.01 Long term (current) use of anticoagulants; Z79.4 Long term (current) use of insulin; Z86.73 Personal history of transient ischemic attack (TIA), and cerebral infarction without residual deficits; Z99.2 Dependence on renal dialysis; Z79.899 Other long term (current) drug therapy; R94.31 Abnormal electrocardiogram [ECG] [EKG]; D63.8 Anemia in other chronic diseases classified elsewhere; E11.22 Type 2 diabetes mellitus with diabetic chronic kidney disease; E11.51 Type 2 diabetes mellitus with diabetic peripheral angiopathy without gangrene; E78.00 Pure hypercholesterolemia, unspecified; E78.5 Hyperlipidemia, unspecified; E87.6 Hypokalemia; H40.9 Unspecified glaucoma; Z86.718 Personal history of other venous thrombosis and embolism
CPT/HCPCS: 70450; 71045; 80048; 80053; 82803; 82948; 83036; 84146; 84484; 85025; 85610; 85730; 93005; 96365; 96372; 99285; G0378; G0480; J2405; J3480

== ENCOUNTER 2018-07-01 02:21 | Inpatient (IN) | payer MEDICARE, MEDICAID ==
[2018-07-01 02:53] VITALS: BMI 46.5
[2018-07-01] MEDS ORDERED: Nitroglycerin 50mg in D5W 250 ML IV ONE (03:00)
[2018-07-01] MEDS ORDERED: Albuterol-Ipratrop 3 mg / 0.5 (3 ml) UD INH STA (03:01)
[2018-07-01] MEDS ORDERED: Nitroglycerin 50mg in D5W 50 MG/250 ML BOTTLE IV ONE ×2 (03:30→04:00)
--- NOTE | 2018-07-01 03:30 | ED PDOC ---
HPI: SOB/CHF/COPD Time Seen by Provider: 07/01/18 02:46 Chief Complaint (Nursing): Shortness Of Breath Chief Complaint (Provider): Shortness Of Breath History Per: Patient History/Exam Limitations: no limitations Onset/Duration Of Symptoms: Days (2) Additional Complaint(s): 58 y/o male with history of hypertension, diabetes, CHF, and end-stage renal disease, presents with shortness of breath for x2 days. Patient reports that he has Sunday, , Sunday dialysis schedule and admits to missing Sunday's appointment. Patient has been having increased shortness of breath since yesterday associated with dry cough. He denies fever. Patient has had dialysis for 3 years. Past Medical History Reviewed: Historical Data, Nursing Documentation, Vital Signs Vital Signs: Last Vital Signs Temp 98.0 F 07/01/18 02:55 Pulse 77 07/01/18 03:16 Resp 18 07/01/18 02:55 BP 220/120 H 07/01/18 02:55 Pulse Ox 100 07/01/18 02:55 - Medical History PMH: Anemia, Diabetes (type I and II), Deep Vein Thrombosis, HTN, Hypercholesterolemia, Chronic Kidney Disease - Surgical History Other surgeries: AV Fistula of LUE - Family History Family History: States: Unknown Family Hx, Diabetes - Home Medications Home Medications: Ambulatory Orders Medication Instructions Recorded Latanoprost [Xalatan] 1 drop EACHEYE HS 03/24/16 Dorzolamide 2%/Timolol 0.5% 1 drop EACHEYE Q12 01/31/17 [Cosopt 2%-0.5% Opht] Apixaban [Eliquis] 5 mg PO Q12 #60 tab 01/19/18 Atorvastatin [Lipitor] 20 mg PO HS #30 tab 01/19/18 Fenofibrate [Tricor] 48 mg PO DAILY #30 tab 01/19/18 Meclizine [Antivert] 12.5 mg PO Q6 PRN #30 tab 01/19/18 amLODIPine [Norvasc] 2.5 mg PO DAILY #30 tab 01/19/18 Calcium Acetate [Phoslo] 667 mg PO TID 02/21/18 Insulin Aspart, Recombinant 22 unit SC TID 02/21/18 [Novolog] Insulin Detemir [Levemir] 25 unit SC BID 02/21/18 Sevelamer Carbonate [Renvela] 3 tab PO WM 02/21/18 Torsemide [Demadex] 5 mg PO DAILY 02/21/18 Vitamin B Complex/Vit C/Folic 1 tab PO DAILY 02/21/18 [Nephro-Madhav] acetaZOLAMIDE [Diamox 250 mg Tab] 250 mg PO Q12 02/21/18 - Allergies Allergies/Adverse Reactions: Allergies Allergy/AdvReac Type Severity Reaction Status Date / Time No Known Allergies Allergy Verified 07/01/18 02:54 Review of Systems ROS Statement: Except As Marked, All Systems Reviewed And Found Negative Constitutional: Negative for: Fever Respiratory: Positive for: Cough, Shortness of Breath Physical Exam - Reviewed Nursing Documentation Reviewed: Yes Vital Signs Reviewed: Yes - Physical Exam Appears: Positive for: In Acute Distress Head Exam: Positive for: ATRAUMATIC, NORMAL INSPECTION, NORMOCEPHALIC Skin: Positive for: Normal Color, Warm, DRY Eye Exam: Positive for: EOMI, Normal appearance, PERRL Cardiovascular/Chest: Positive for: Regular Rate, Rhythm, JVD. Negative for: Murmur Respiratory: Positive for: Decreased Breath Sounds, Rales (at bases), Respiratory Distress (moderate) Back: Positive for: Normal Inspection Extremity: Positive for: Normal ROM. Negative for: Pedal Edema, Deformity Neurological/Psych: Positive for: Awake, Alert, Normal Tone. Negative for: Motor/Sensory Deficits - Laboratory Results Result Diagrams: 07/01/18 04:06 07/01/18 04:06 - ECG O2 Sat by Pulse Oximetry: 100 (RA) Pulse Ox Interpretation: Normal Medical Decision Making Medical Decision Making: Time: 02:53 Impression: 58 y/o with respiratory failure and fluid overload secondary to missed dialysis Initial Plan: * Labs * CXR * Nitroglycerin * Duonebs * Lasix 03:23 CXR shows cardiomegaly and bilateral pulmonary vascular congestion. Still waiting for lab results but patient will be admitted for CHF and fluid overload secondary to ESRD. Case referred to Dr. Downey. 04:31 Labs reviewed significant for leukocytosis and marked elevation of creatinine. Patient reports significant improvement in his breathing after being on BiPAP. Patient will be admitted to telemetry. Case discussed with Dr. Downey. Scribe Attestation: Documented by Jose Colby, acting as a scribe Chace Miranda MD Provider Scribe Attestation: All medical record entries made by the Scribe were at my direction and personally dictated by me. I have reviewed the chart and agree that the record accurately reflects my personal performance of the history, physical exam, medical decision making, and the department course for this patient. I have also personally directed, reviewed, and agree with the discharge instructions and disposition Disposition - Clinical Impression Clinical Impression: Respiratory failure, CHF (congestive heart failure), Acute on chronic renal failure, HTN (hypertension) - Patient ED Disposition Is Patient to be Admitted: Yes - Disposition Disposition Time: 06:55 Condition: GUARDED
[2018-07-01 04:09] LABS: BASO # 0.1 K/uL (0.0-0.2); BASO % 0.8 % (0.0-2.0); EOS # 0.3 K/uL (0.0-0.7); LYMPH # 1.9 K/uL (1.0-4.3); LYMPH % 14.5 % (20.0-40.0); MEAN CELL VOLUME 91.1 fl (80.0-94.0); MEAN CORPUSCULAR HEMOGLOBIN 29.2 pg (27.0-31.0); MEAN PLATELET VOLUME 8.5 fl (7.2-11.7); MONO # 0.9 K/uL (0.0-0.8); MONO % 6.8 % (0.0-10.0); NEUT # 9.9 K/uL (1.8-7.0); NEUT % 75.9 % (50.0-75.0); RBC 3.43 Mil/uL (4.40-5.90)
[2018-07-01 04:18] LABS: INR 1.1; PROTHROMBIN TIME 12.1 Seconds (9.8-13.1)
[2018-07-01 04:20] LABS: ALB/GLOB RATIO 1.2 (1.0-2.1); ALBUMIN 4.6 g/dL (3.5-5.0); CALCIUM 8.9 mg/dL (8.4-10.2)
[2018-07-01 04:21] LABS: PARTIAL THROMBOPLASTIN TIME 39.4 Seconds (25.6-37.1)
--- NOTE | 2018-07-01 06:03 | CP.PCM.HP ---
<Jay Morgan - Last Filed: 07/01/18 05:51> History of Present Illness - History of Present Illness History of Present Illness: 57 y/o M with a PMHx of IDDM, ESRD (on dialysis ), DVT, HTN, HLD and PAD presented to ED complaining of severe dyspnea. Pt explains feeling out of breath since yesterday afternoon, progressively aggravated and associated with non-productive cough. Pt missed appt for hemodialysis on Sunday. No ill contacts, No recent travel. --Pt denies headache, fever, chills, dizziness, nasal congestion, runny nose, chest pain, palpitations, N/V/D. PMD: Dr Nunez at [facility] [employer] Engineer: Dr Augie CHEUNG Meds: as per med rec -PMHx: PAD, IDDM, HTN, ESRD, HLD, recurrent DVT -PSHx: right hallux amputation, RLE bypass with stent placement on 2016, left hallux amputation -SHx: Pt denies etoh/tobacco/drug abuse. ED Course: --VS showed a BP of 220/120-high. --CBC showed leukocytosis and anemia. --CMP showed a creatinine 13.4-high --CXR shows cardiomegaly and bilateral pulmonary vascular congestion. --Duoneb 9mL, Lasix 60mg and Nitroglycerin drip were initiated, Present on Admission - Present on Admission Any Indicators Present on Admission: Yes History of DVT/PE: Yes History of Uncontrolled Diabetes: Yes Urinary Catheter: No Review of Systems - Constitutional Constitutional: absent: Chills, Fever - EENT Nose/Mouth/Throat: absent: Nasal Congestion, Nasal Discharge, Neck Pain - Cardiovascular Cardiovascular: Dyspnea. absent: Chest Pain, Leg Edema - Respiratory Respiratory: Cough, Dyspnea. absent: Hemoptysis, Excessive Mucous Production - Gastrointestinal Gastrointestinal: absent: Abdominal Pain, Diarrhea, Nausea, Vomiting - Genitourinary Genitourinary: absent: Dysuria, Flank Pain, Hematuria, Nocturia Past Patient History - Past Medical History & Family History Past Medical History?: Yes - Past Social History Smoking Status: Never Smoked - CARDIAC Hx Hypercholesterolemia: Yes Hx Hypertension: Yes - PULMONARY Hx Respiratory Disorders: No - NEUROLOGICAL Hx Neurological Disorder: No - HEENT Hx HEENT Problems: Yes Hx Glaucoma: Yes - RENAL Hx Chronic Kidney Disease: Yes - ENDOCRINE/METABOLIC Hx Endocrine Disorders: Yes - HEMATOLOGICAL/ONCOLOGICAL Hx Anemia: Yes - INTEGUMENTARY Hx Dermatological Problems: No - MUSCULOSKELETAL/RHEUMATOLOGICAL Hx Falls: No - GASTROINTESTINAL Hx Gastrointestinal Disorders: No - GENITOURINARY/GYNECOLOGICAL Hx Genitourinary Disorders: No - PSYCHIATRIC Hx Psychophysiologic Disorder: No Hx Substance Use: No - SURGICAL HISTORY Hx Surgeries: Yes Hx Angioplasty: Yes (august-2011) Other/Comment: amputation of 5th digit on left foot-2011(digit infection); right eye surgery x1 month ago (glaucoma) - ANESTHESIA Hx Anesthesia: Yes Hx Anesthesia Reactions: No Hx Malignant Hyperthermia: No Meds Allergies/Adverse Reactions: Allergies Allergy/AdvReac Type Severity Reaction Status Date / Time No Known Allergies Allergy Verified 07/01/18 02:54 Physical Exam - Constitutional Appears: Other (On BiPAP) - Head Exam Head Exam: ATRAUMATIC, NORMAL INSPECTION, NORMOCEPHALIC - Eye Exam Eye Exam: EOMI, PERRL - Neck Exam Neck exam: Positive for: Full Rom, Normal Inspection. Negative for: Meningismus - Respiratory Exam Respiratory Exam: Rales (bilateral bases), Respiratory Distress. absent: Chest Wall Tenderness, Rhonchi, Wheezes - Cardiovascular Exam Cardiovascular Exam: REGULAR RHYTHM, +S1, +S2 - GI/Abdominal Exam GI & Abdominal Exam: Soft. absent: Distended, Guarding, Tenderness - Extremities Exam Extremities exam: Positive for: full ROM, pedal pulses present. Negative for: pedal edema, tenderness - Neurological Exam Neurological exam: Alert, Oriented x3 Results - Vital Signs Recent Vital Signs: Last Vital Signs Temp 98.0 F 07/01/18 02:55 Pulse 74 07/01/18 05:49 Resp 76 H 07/01/18 05:49 BP 190/114 H 07/01/18 05:49 Pulse Ox 100 07/01/18 05:49 - Labs Result Diagrams: 07/01/18 04:06 07/01/18 04:06 Labs: Laboratory Results - last 24 hr 07/01/18 07/01/18 07/01/18 03:09 04:00 04:06 WBC 13.0 H RBC 3.43 L Hgb 10.0 L Hct 31.2 L MCV 91.1 MCH 29.2 MCHC 32.0 L RDW 17.0 H Plt Count 244 MPV 8.5 Neut % (Auto) 75.9 H Lymph % (Auto) 14.5 L [place] % (Auto) 6.8 Eos % (Auto) 2.0 Baso % (Auto) 0.8 Neut # (Auto) 9.9 H Lymph # (Auto) 1.9 [place] # (Auto) 0.9 H Eos # (Auto) 0.3 Baso # (Auto) 0.1 PT 12.1 INR 1.1 APTT 39.4 H Sodium Potassium Chloride Carbon Dioxide Anion Gap BUN Creatinine Est GFR ( Amer) Est GFR (Non-Af Amer) POC Glucose (mg/dL) 279 H Random Glucose Calcium Total Bilirubin AST ALT Alkaline Phosphatase Total Protein Albumin Globulin Albumin/Globulin Ratio 07/01/18 04:06 WBC RBC Hgb Hct MCV MCH MCHC RDW Plt Count MPV Neut % (Auto) Lymph % (Auto) [place] % (Auto) Eos % (Auto) Baso % (Auto) Neut # (Auto) Lymph # (Auto) [place] # (Auto) Eos # (Auto) Baso # (Auto) PT INR APTT Sodium 143 Potassium 4.4 Chloride 101 Carbon Dioxide 20 L Anion Gap 26 H BUN 71 H Creatinine 13.4 H* D Est GFR ( Amer) 5 Est GFR (Non-Af Amer) 4 POC Glucose (mg/dL) Random Glucose 255 H Calcium 8.9 Total Bilirubin 0.6 AST 23 ALT 18 L D Alkaline Phosphatase 112 Total Protein 8.4 H Albumin 4.6 Globulin 3.8 Albumin/Globulin Ratio 1.2 Assessment & Plan - Assessment and Plan (Free Text) Assessment: 57 y/o M with a PMHx of IDDM, ESRD (on dialysis ), DVT, HTN, HLD and PAD is admitted for evaluation and management of acute respiratory failure, fluid overload 2/2 ESRD and hypertensive urgency, --VS showed a BP of 220/120-high. --CBC showed leukocytosis and anemia. --CMP showed a creatinine 13.4-high --CXR shows cardiomegaly and bilateral pulmonary vascular congestion. PLAN >Acute respiratory failure --Afebrile, Leukocytosis --On BiPAP: IPAP/EPAP 12/6, FiO2 60%, RR 14 --Likely due to fluid overload/CHF exacerbation. --F/U ABG, pro-BNP --Hemodialysis today. --Another dose of Lasix 60mg. >FLuid overload 2/2 ESRD --Hemodyalysis today --Nephro consult, Dr. Collier. --Home meds resumed --Another dose of Lasix 60mg. >Hypertensive Urgency --2/2 fluid overload --On Nitroglycerin drip, rate increased to 10mcg/min --Monitor vital signs >IDDM --hemoglobin A1C - 7.2 on 06/17/18. --Home meds resumed --ISS and hypoglycemia protocol >HTN --Chronic --Home meds resumed >Hx of glaucoma --C/w Latanaprost --C/W Timolol eye drops >Anemia of Chronic disease --Chronic --Monitor CBC >Recurrent DVT --C/w Eliquis 5mg >DVT Prophylaxis --Already on Eliquis 5mg QD >Diet --Renal >Code status --full code Case discussed with Dr Shayan Morgan PGY-2 - Date & Time Date: 07/01/18 Time: 06:35 <Philippe Downey - Last Filed: 07/01/18 09:42> Results - Vital Signs Recent Vital Signs: Last Vital Signs Temp 98.0 F 07/01/18 02:55 Pulse 78 07/01/18 06:57 Resp 15 07/01/18 06:57 BP 176/89 H 07/01/18 07:18 Pulse Ox 100 07/01/18 06:57 - Labs Result Diagrams: 07/01/18 04:06 07/01/18 04:06 Labs: Laboratory Results - last 24 hr 07/01/18 07/01/18 07/01/18 03:09 04:00 04:06 WBC 13.0 H RBC 3.43 L Hgb 10.0 L Hct 31.2 L MCV 91.1 MCH 29.2 MCHC 32.0 L RDW 17.0 H Plt Count 244 MPV 8.5 Neut % (Auto) 75.9 H Lymph % (Auto) 14.5 L [place] % (Auto) 6.8 Eos % (Auto) 2.0 Baso % (Auto) 0.8 Neut # (Auto) 9.9 H Lymph # (Auto) 1.9 [place] # (Auto) 0.9 H Eos # (Auto) 0.3 Baso # (Auto) 0.1 PT 12.1 INR 1.1 APTT 39.4 H pCO2 pO2 HCO3 ABG pH ABG Total CO2 ABG O2 Saturation ABG O2 Content ABG Base Excess ABG Hemoglobin ABG Carboxyhemoglobin POC ABG HHb (Measured) ABG Methemoglobin ABG O2 Capacity Reyes Test A-a O2 Difference Hgb O2 Saturation Vent Mode FiO2 Tidal Volume Inspiratory BiPAP Expiratory BiPAP Sodium Potassium Chloride Carbon Dioxide Anion Gap BUN Creatinine Est GFR ( Amer) Est GFR (Non-Af Amer) POC Glucose (mg/dL) 279 H Random Glucose Calcium Total Bilirubin AST ALT Alkaline Phosphatase NT-Pro-B Natriuret Pep Total Protein Albumin Globulin Albumin/Globulin Ratio 07/01/18 07/01/18 07/01/18 04:06 04:50 06:00 WBC RBC Hgb Hct MCV MCH MCHC RDW Plt Count MPV Neut % (Auto) Lymph % (Auto) [place] % (Auto) Eos % (Auto) Baso % (Auto) Neut # (Auto) Lymph # (Auto) [place] # (Auto) Eos # (Auto) Baso # (Auto) PT INR APTT pCO2 37 pO2 233 H HCO3 20.3 L ABG pH 7.33 L ABG Total CO2 20.6 L ABG O2 Saturation 99.1 H ABG O2 Content 14.2 L ABG Base Excess -5.9 L ABG Hemoglobin 10.0 L ABG Carboxyhemoglobin 0.4 L POC ABG HHb (Measured) 0.9 ABG Methemoglobin 1.6 ABG O2 Capacity 14.3 L Reyes Test Yes A-a O2 Difference 149.0 Hgb O2 Saturation 97.1 Vent Mode Bipap FiO2 60.0 Tidal Volume 14 Inspiratory BiPAP 12 Expiratory BiPAP 6 Sodium 143 Potassium 4.4 Chloride 101 Carbon Dioxide 20 L Anion Gap 26 H BUN 71 H Creatinine 13.4 H* D Est GFR ( Amer) 5 Est GFR (Non-Af Amer) 4 POC Glucose (mg/dL) Random Glucose 255 H Calcium 8.9 Total Bilirubin 0.6 AST 23 ALT 18 L D Alkaline Phosphatase 112 NT-Pro-B Natriuret Pep 40796 H Total Protein 8.4 H Albumin 4.6 Globulin 3.8 Albumin/Globulin Ratio 1.2 Attending/Attestation - Attestation I have personally seen and examined this patient.: Yes I have fully participated in the care of the patient.: Yes I have reviewed all pertinent clinical information: Yes Notes (Text): 07/01/18 09:35 I saw examined and discussed this patient with Dr Morgan. I agree with the assessment and plan outlined. This is a 58 years old male who missed his last Hemodialysis session and now comes with severe SOB.. he will be treated for Acute Respiratory failure due to volume overload. He is started on a BIPAP, a Nitroglycerine drip is started and lasix is given IV. Nephrology is consulted and he will be dialyses today. the IN nitroglycerine is also being used to treat the Hypertensive Urgency. Treat the Diabetes Mellitus. follow up all laboratory results. Philippe Downey MD
[2018-07-01 06:24] LABS: ABG ALLEN TEST YES; ARTERIAL BLOOD GAS HCO3 20.3 mmol/L (21-28); ARTERIAL BLOOD GAS O2 CAPACITY 14.3 mL/dL (16-24); ARTERIAL BLOOD GAS O2 CONTENT 14.2 ML/dL (15-23); ARTERIAL BLOOD GAS O2 SAT 99.1 % (95-98); ARTERIAL BLOOD GAS PCO2 37 mm/Hg (35-45); ARTERIAL BLOOD GAS PH 7.33 (7.35-7.45); ARTERIAL BLOOD GAS PO2 233 mm/Hg (80-100); ARTERIAL BLOOD GAS TCO2 20.6 mmol/L (22-28)
[2018-07-01] MEDS ORDERED: Glucagon Recombinant 1 mg Inj IM PRN (06:27)
[2018-07-01] MEDS ORDERED: Dextrose 50% SYRINGE Inj (50 ml) IV PRN (06:27)
--- NOTE | 2018-07-01 08:42 | CARD ---
APPROVED REPORT Date of service: 07/01/2018 EKG Measurement Heart [id number] <Conclusion> Normal sinus rhythm Normal ECG
[2018-07-01] MEDS ORDERED: Insulin Detemir 100 Units/ml Inj SC SCH (09:00)
[2018-07-01] MEDS: Insulin Lispro (humaLOG) 100 Units/ml Inj SC SCH ×5 (09:27→23:15)
[2018-07-01] MEDS: Multivitamin Vitamin B Complex (Nephro-Vite) Tab PO SCH (09:35)
[2018-07-01] MEDS ORDERED: Doxercalciferol 4 mcg/2 ml Inj IV ONE (13:04)
--- NOTE | 2018-07-01 16:07 | RAD ---
Date of service: 07/01/2018 HISTORY: SOB COMPARISON: No prior. TECHNIQUE: 1 view obtained. FINDINGS: LUNGS: Right perihilar and lower lobe opacities or infiltrate noted. [id number] pulmonary vascular congestion. PLEURA: No significant pleural effusion identified, no pneumothorax apparent. CARDIOVASCULAR: No aortic atherosclerotic calcification present. Normal cardiac size. No pulmonary vascular congestion. OSSEOUS STRUCTURES: No significant abnormalities. VISUALIZED UPPER ABDOMEN: Normal. OTHER FINDINGS: None. IMPRESSION: Right lower lung opacity or infiltrate. Mild pulmonary vascular congestion.
--- NOTE | 2018-07-01 17:48 | CP.PCM.CON ---
History of Present Illness - History of Present Illness History of Present Illness: pt is seen and examined, full consult is dictated #[id number] for hd charu, pt is awaiting for hemodialysis since this am 9.00 am Past Patient History - Past Medical History & Family History Past Medical History?: Yes - Past Social History Smoking Status: Former Smoker - CARDIAC Hx Hypercholesterolemia: Yes Hx Hypertension: Yes - PULMONARY Hx Respiratory Disorders: No - NEUROLOGICAL Hx Neurological Disorder: No - HEENT Hx HEENT Problems: Yes Hx Glaucoma: Yes - RENAL Hx Chronic Kidney Disease: Yes - ENDOCRINE/METABOLIC Hx Endocrine Disorders: Yes Hx Diabetes Mellitus Type 1: Yes - HEMATOLOGICAL/ONCOLOGICAL Hx Anemia: Yes - INTEGUMENTARY Hx Dermatological Problems: No - MUSCULOSKELETAL/RHEUMATOLOGICAL Hx Falls: No - GASTROINTESTINAL Hx Gastrointestinal Disorders: No - GENITOURINARY/GYNECOLOGICAL Hx Genitourinary Disorders: No - PSYCHIATRIC Hx Psychophysiologic Disorder: No Hx Substance Use: No - SURGICAL HISTORY Hx Surgeries: Yes Hx Angioplasty: Yes (august-2011) Other/Comment: amputation of 5th digit on left foot-2011(digit infection); right eye surgery x1 month ago (glaucoma) - ANESTHESIA Hx Anesthesia: Yes Hx Anesthesia Reactions: No Hx Malignant Hyperthermia: No Has any member of the family had a problem w/ anesthesia?: No Meds Allergies/Adverse Reactions: Allergies Allergy/AdvReac Type Severity Reaction Status Date / Time No Known Allergies Allergy Verified 07/01/18 02:54 - Medications Medications: Current Medications Amlodipine Besylate (Norvasc) 10 mg PO DAILY SONNY Last Admin: 07/01/18 09:36 Dose: 10 mg Apixaban (Eliquis) 2.5 mg PO Q12 SONNY; Protocol Last Admin: 07/01/18 09:33 Dose: 2.5 mg Atorvastatin Calcium (Lipitor) 20 mg PO HS SONNY Dextrose (Dextrose 50% Inj) 0 ml IV STAT PRN; Protocol PRN Reason: Hypoglycemia Protocol Dextrose (Glutose 15) 0 gm PO ONCE PRN; Protocol PRN Reason: Hypoglycemia Protocol Dorzolamide HCl (Trusopt) 1 drop OU TID SONNY Glucagon (Glucagen Diagnostic Kit) 0 mg IM STAT PRN; Protocol PRN Reason: Hypoglycemia Protocol Nitroglycerin/Dextrose (Nitroglycerin 50 Mg/250 Ml D5w) 50 mg in 250 mls @ 1.5 mls/hr IV .Q24H ONE; Protocol Stop: 07/02/18 03:29 Last Admin: 07/01/18 04:24 Dose: 5 mcg/min, 1.5 mls/hr Insulin Detemir (Levemir) 25 units SC BID COUNTS INCLUDE 234 BEDS AT THE [facility] Insulin Human Lispro (Humalog) 20 units SC TID COUNTS INCLUDE 234 BEDS AT THE [facility] Last Admin: 07/01/18 09:34 Dose: 20 units Insulin Human Lispro (Humalog) 0 units SC ACCU-CHECK SONNY; Protocol Last Admin: 07/01/18 09:27 Dose: Not Given Latanoprost (Xalatan Opht) 1 drop OU HS SONNY Sevelamer Carbonate (Renvela) 2,400 mg PO WM COUNTS INCLUDE 234 BEDS AT THE [facility] Last Admin: 07/01/18 09:31 Dose: 2,400 mg Timolol Maleate (Timoptic 0.5% Oph Soln) 1 drop OU Q12 SONNY Torsemide (Demadex) 5 mg PO DAILY COUNTS INCLUDE 234 BEDS AT THE [facility] Last Admin: 07/01/18 09:32 Dose: 5 mg Vitamin B Complex/Vit C/Folic Acid (Nephro-Madhav) 1 tab PO DAILY COUNTS INCLUDE 234 BEDS AT THE [facility] Last Admin: 07/01/18 09:35 Dose: 1 tab Results - Vital Signs Recent Vital Signs: Last Vital Signs Temp 97.9 F 07/01/18 16:06 Pulse 80 07/01/18 16:06 Resp 20 07/01/18 16:06 BP 165/90 H 07/01/18 16:06 Pulse Ox 98 07/01/18 16:06 - Labs Result Diagrams: 07/01/18 04:06 07/01/18 04:06 Labs: Laboratory Results - last 24 hr 07/01/18 07/01/18 07/01/18 03:09 04:00 04:06 WBC 13.0 H RBC 3.43 L Hgb 10.0 L Hct 31.2 L MCV 91.1 MCH 29.2 MCHC 32.0 L RDW 17.0 H Plt Count 244 MPV 8.5 Neut % (Auto) 75.9 H Lymph % (Auto) 14.5 L [place] % (Auto) 6.8 Eos % (Auto) 2.0 Baso % (Auto) 0.8 Neut # (Auto) 9.9 H Lymph # (Auto) 1.9 [place] # (Auto) 0.9 H Eos # (Auto) 0.3 Baso # (Auto) 0.1 PT 12.1 INR 1.1 APTT 39.4 H pCO2 pO2 HCO3 ABG pH ABG Total CO2 ABG O2 Saturation ABG O2 Content ABG Base Excess ABG Hemoglobin ABG Carboxyhemoglobin POC ABG HHb (Measured) ABG Methemoglobin ABG O2 Capacity Reyes Test A-a O2 Difference Hgb O2 Saturation Vent Mode FiO2 Tidal Volume Inspiratory BiPAP Expiratory BiPAP Sodium Potassium Chloride Carbon Dioxide Anion Gap BUN Creatinine Est GFR ( Amer) Est GFR (Non-Af Amer) POC Glucose (mg/dL) 279 H Random Glucose Calcium Total Bilirubin AST ALT Alkaline Phosphatase NT-Pro-B Natriuret Pep Total Protein Albumin Globulin Albumin/Globulin Ratio 07/01/18 07/01/18 07/01/18 04:06 04:50 06:00 WBC RBC Hgb Hct MCV MCH MCHC RDW Plt Count MPV Neut % (Auto) Lymph % (Auto) [place] % (Auto) Eos % (Auto) Baso % (Auto) Neut # (Auto) Lymph # (Auto) [place] # (Auto) Eos # (Auto) Baso # (Auto) PT INR APTT pCO2 37 pO2 233 H HCO3 20.3 L ABG pH 7.33 L ABG Total CO2 20.6 L ABG O2 Saturation 99.1 H ABG O2 Content 14.2 L ABG Base Excess -5.9 L ABG Hemoglobin 10.0 L ABG Carboxyhemoglobin 0.4 L POC ABG HHb (Measured) 0.9 ABG Methemoglobin 1.6 ABG O2 Capacity 14.3 L Reyes Test Yes A-a O2 Difference 149.0 Hgb O2 Saturation 97.1 Vent Mode Bipap FiO2 60.0 Tidal Volume 14 Inspiratory BiPAP 12 Expiratory BiPAP 6 Sodium 143 Potassium 4.4 Chloride 101 Carbon Dioxide 20 L Anion Gap 26 H BUN 71 H Creatinine 13.4 H* D Est GFR ( Amer) 5 Est GFR (Non-Af Amer) 4 POC Glucose (mg/dL) Random Glucose 255 H Calcium 8.9 Total Bilirubin 0.6 AST 23 ALT 18 L D Alkaline Phosphatase 112 NT-Pro-B Natriuret Pep 70291 H Total Protein 8.4 H Albumin 4.6 Globulin 3.8 Albumin/Globulin Ratio 1.2 07/01/18 17:03 WBC RBC Hgb Hct MCV MCH MCHC RDW Plt Count MPV Neut % (Auto) Lymph % (Auto) [place] % (Auto) Eos % (Auto) Baso % (Auto) Neut # (Auto) Lymph # (Auto) [place] # (Auto) Eos # (Auto) Baso # (Auto) PT INR APTT pCO2 pO2 HCO3 ABG pH ABG Total CO2 ABG O2 Saturation ABG O2 Content ABG Base Excess ABG Hemoglobin ABG Carboxyhemoglobin POC ABG HHb (Measured) ABG Methemoglobin ABG O2 Capacity Reyes Test A-a O2 Difference Hgb O2 Saturation Vent Mode FiO2 Tidal Volume Inspiratory BiPAP Expiratory BiPAP Sodium Potassium Chloride Carbon Dioxide Anion Gap BUN Creatinine Est GFR ( Amer) Est GFR (Non-Af Amer) POC Glucose (mg/dL) 164 H Random Glucose Calcium Total Bilirubin AST ALT Alkaline Phosphatase NT-Pro-B Natriuret Pep Total Protein Albumin Globulin Albumin/Globulin Ratio
[2018-07-01] MEDS: Insulin Detemir 100 Units/ml Inj SC SCH (17:59)
[2018-07-01] MEDS: Latanoprost 0.005% Opht SOUTION OU SCH (23:57)
[2018-07-02] MEDS: Insulin Lispro (humaLOG) 100 Units/ml Inj SC SCH ×7 (06:32→22:09)
--- NOTE | 2018-07-02 06:58 | CP.PCM.PN ---
<Dmitry Maciel - Last Filed: 07/02/18 15:13> Subjective - Date & Time of Evaluation Date of Evaluation: 07/02/18 Time of Evaluation: 06:58 - Subjective Subjective: Patient seen and examined this morning at bedside, feeling better, reports 3 episodes of watery non bloody diarrhea last night, no other active complaints. Denies CP, sob, nausea, vomiting or abd pain. s/p HD last night, pt is scheduled for his normal HD cycle this am Objective - Vital Signs/Intake and Output Vital Signs (last 24 hours): Temp Pulse Resp BP Pulse Ox 98.8 F 81 18 176/84 H 95 07/02/18 05:00 07/02/18 05:10 07/02/18 05:00 07/02/18 05:10 07/02/18 05:00 - Medications Medications: Current Medications Amlodipine Besylate (Norvasc) 10 mg PO DAILY [facility] Last Admin: 07/01/18 09:36 Dose: 10 mg Apixaban (Eliquis) 2.5 mg PO Q12 [facility]; Protocol Last Admin: 07/01/18 21:35 Dose: Not Given Atorvastatin Calcium (Lipitor) 20 mg PO HS [facility] Last Admin: 07/01/18 23:57 Dose: Not Given Dextrose (Dextrose 50% Inj) 0 ml IV STAT PRN; Protocol PRN Reason: Hypoglycemia Protocol Dextrose (Glutose 15) 0 gm PO ONCE PRN; Protocol PRN Reason: Hypoglycemia Protocol Dorzolamide HCl (Trusopt) 1 drop OU TID [facility] Glucagon (Glucagen Diagnostic Kit) 0 mg IM STAT PRN; Protocol PRN Reason: Hypoglycemia Protocol Insulin Detemir (Levemir) 25 units SC BID [facility] Last Admin: 07/01/18 17:59 Dose: Not Given Insulin Human Lispro (Humalog) 20 units SC TID [facility] Last Admin: 07/01/18 17:59 Dose: Not Given Insulin Human Lispro (Humalog) 0 units SC ACCU-CHECK [facility]; Protocol Last Admin: 07/02/18 06:32 Dose: 6 units Latanoprost (Xalatan Opht) 1 drop OU HS [facility] Last Admin: 07/01/18 23:57 Dose: Not Given Sevelamer Carbonate (Renvela) 2,400 mg PO WM [facility] Last Admin: 07/01/18 09:31 Dose: 2,400 mg Timolol Maleate (Timoptic 0.5% Ophth Soln) 1 drop OU Q12 [facility] Last Admin: 07/01/18 21:35 Dose: Not Given Torsemide (Demadex) 5 mg PO DAILY [facility] Last Admin: 07/01/18 09:32 Dose: 5 mg Vitamin B Complex/Vit C/Folic Acid (Nephro-Madhav) 1 tab PO DAILY [facility] Last Admin: 07/01/18 09:35 Dose: 1 tab - Labs Labs: 07/01/18 04:06 07/01/18 04:06 PT 12.1 Seconds (9.8-13.1) 07/01/18 04:00 INR 1.1 07/01/18 04:00 APTT 39.4 Seconds (25.6-37.1) H 07/01/18 04:00 - Constitutional Appears: No Acute Distress - Head Exam Head Exam: NORMAL INSPECTION - Respiratory Exam Respiratory Exam: Clear to Ausculation Bilateral, NORMAL BREATHING PATTERN - Cardiovascular Exam Cardiovascular Exam: REGULAR RHYTHM, +S1, +S2. absent: Tachycardia - GI/Abdominal Exam GI & Abdominal Exam: Soft, Normal Bowel Sounds. absent: Distended, Tenderness - Neurological Exam Neurological Exam: Alert, Awake, Oriented x3 - Skin Skin Exam: Dry, Warm Assessment and Plan - Assessment and Plan (Free Text) Assessment: 57 y/o M with a PMHx of IDDM, ESRD (on dialysis T, , ), DVT, HTN, HLD and PAD is admitted for evaluation and management of acute respiratory failure, flui d overload 2/2 ESRD and hypertensive urgency. --VS showed a BP of 220/120-high. --CBC showed leukocytosis and anemia. --CMP showed a creatinine 13.4-high --CXR shows cardiomegaly and bilateral pulmonary vascular congestion. PLAN Acute respiratory failure, resolved - Afebrile, Leukocytosis - On BiPAP: IPAP/EPAP 12/6, FiO2 60%, RR 14 - s/p HD last night, scheduled for today again - pro-BNP elevated - s/p Lasix 60mg IV Fluid overload 2/2 ESRD - s/p HD last night, scheduled for today again - Nephro consult, Dr. Collier. - Home meds resumed - pro-BNP elevated Hypertensive Urgency, improved - 2/2 fluid overload - s/p Nitroglycerin drip - started on Hydralazine 25 TID - c/ with home meds - VSS - Monitor vital signs ESRD on HD - BUN/Cr: 71/13.4 - s/p HD last night, scheduled for today again - Nephro on board - f/u labs in am IDDM - hemoglobin A1C - 7.2 on 06/17/18. - Home meds resumed - ISS and hypoglycemia protocol Hx of glaucoma - C/w Latanaprost - C/W Timolol eye drops Anemia of Chronic disease - Chronic - Monitor CBC Recurrent DVT - C/w Eliquis 2.5 mg DVT Prophylaxis - Already on Eliquis 2.5mg QD Diet --Renal Code status --full code Case discussed with Dr Bravo Ferrer PGY 2 <Radha Cordon - Last Filed: 07/02/18 15:54> Objective - Vital Signs/Intake and Output Vital Signs (last 24 hours): Temp Pulse Resp BP Pulse Ox 98.3 F 76 18 134/88 94 L 07/02/18 12:00 07/02/18 12:02 07/02/18 12:00 07/02/18 12:02 07/02/18 12:00 - Medications Medications: Current Medications Amlodipine Besylate (Norvasc) 10 mg PO DAILY [facility] Last Admin: 07/02/18 08:33 Dose: 10 mg Apixaban (Eliquis) 2.5 mg PO Q12 [facility]; Protocol Last Admin: 07/02/18 08:33 Dose: 2.5 mg Atorvastatin Calcium (Lipitor) 20 mg PO HS [facility] Last Admin: 07/01/18 23:57 Dose: Not Given Dextrose (Dextrose 50% Inj) 0 ml IV STAT PRN; Protocol PRN Reason: Hypoglycemia Protocol Dextrose (Glutose 15) 0 gm PO ONCE PRN; Protocol PRN Reason: Hypoglycemia Protocol Dorzolamide HCl (Trusopt) 1 drop OU TID [facility] Last Admin: 07/02/18 12:01 Dose: 1 drop Glucagon (Glucagen Diagnostic Kit) 0 mg IM STAT PRN; Protocol PRN Reason: Hypoglycemia Protocol Hydralazine HCl (Apresoline) 25 mg PO TID [facility] Last Admin: 07/02/18 12:02 Dose: 25 mg Insulin Detemir (Levemir) 25 units SC BID [facility] Last Admin: 07/02/18 10:35 Dose: 25 units Insulin Human Lispro (Humalog) 20 units SC TID [facility] Last Admin: 07/02/18 12:04 Dose: Not Given Insulin Human Lispro (Humalog) 0 units SC ACCU-CHECK [facility]; Protocol Last Admin: 07/02/18 12:03 Dose: 6 units Latanoprost (Xalatan Opht) 1 drop OU HS [facility] Last Admin: 07/01/18 23:57 Dose: Not Given Loperamide HCl (Imodium) 2 mg PO Q8 [facility] Last Admin: 07/02/18 10:34 Dose: Not Given Sevelamer Carbonate (Renvela) 2,400 mg PO WM [facility] Last Admin: 07/02/18 12:02 Dose: 2,400 mg Timolol Maleate (Timoptic 0.5% Oph Soln) 1 drop OU Q12 [facility] Last Admin: 07/02/18 08:36 Dose: 1 drop Torsemide (Demadex) 5 mg PO DAILY [facility] Last Admin: 07/02/18 12:03 Dose: 5 mg Vitamin B Complex/Vit C/Folic Acid (Nephro-Madhav) 1 tab PO DAILY [facility] Last Admin: 07/02/18 08:34 Dose: 1 tab - Labs Labs: 07/01/18 04:06 07/01/18 04:06 PT 12.1 Seconds (9.8-13.1) 07/01/18 04:00 INR 1.1 07/01/18 04:00 APTT 39.4 Seconds (25.6-37.1) H 07/01/18 04:00 Attending/Attestation - Attestation I have personally seen and examined this patient.: Yes I have fully participated in the care of the patient.: Yes I have reviewed all pertinent clinical information, including history, physical exam and plan: Yes Notes (Text): Acute Hypoxic Respirtory Failure sec to Fluid Overload Fluid Overload due to Missed Hemodialysis Hypertensive Emergency ESRD on HD DM type II on Insulin -Pt placed initially on Bipap -Saturation improved after HD - Pt was also started on Tridil drip- now off -cont Norvasc , Demadex , add Hydralazine - cont Levemir , Accucheck
--- NOTE | 2018-07-02 08:02 | CON ---
DATE: 07/01/2018 RENAL CONSULTATION LOCATION: The patient is located in [facility], room 405, bed 1. REQUESTED BY: Philippe Downey MD REASON FOR RENAL CONSULTATION: End-stage renal disease, shortness of breath, and missed hemodialysis on Sunday. HISTORY OF PRESENT ILLNESS: Mr. Priyank Foote is a 58-year-old middle-aged, obese, male with a past medical history significant for longstanding hypertension, diabetes, end-stage renal disease, diabetic retinopathy with a poor vision, who went to visit his relatives in [place] and missed the dialysis on Sunday and now the patient was presented to emergency room early this morning with shortness of breath and cough for one day. Denies any fever, denies any chest pain, palpitation, denies any nausea, vomiting, diarrhea, denies any abdominal pain. No fever. No urinary symptoms, no abdominal pain. PAST MEDICAL HISTORY: Significant for longstanding hypertension, diabetes, end-stage renal disease, peripheral vascular disease status post right lower extremity fem-pop bypass and also partial amputation of the toe. ALLERGIES: NO KNOWN DRUG ALLERGIES. SOCIAL HISTORY: No smoking. No alcohol. No drugs. FAMILY HISTORY: Not significant. CURRENT MEDICATIONS: Include torsemide 5 mg p.o. daily, Eliquis 2.5 mg p.o. every 12 hours, Humalog 20 units subcu t.i.d., Levemir 25 units subcu b.i.d., Lipitor 20 mg p.o. at bedtime, Nephro-Madhav one tablet daily, IV nitro drip, Norvasc 10 mg daily, Renvela 2.4 g p.o. with meals, Tylenol eyedrops, Trusopt eyedrops, and also Xalatan eyedrops. REVIEW OF SYSTEMS: Significant for shortness of breath and cough x1 one day. All other review of systems are reviewed and are negative and missed hemodialysis on Sunday. PHYSICAL EXAMINATION: VITAL SIGNS: As follows. On admission this morning to the emergency room, his blood pressure was 220/110, pulse 78, respirations about 16, saturation 100% on BiPAP. His current vital signs this evening, blood pressure 165/90, pulse 80, respirations 20, temperature 97.9, saturation 98%. Height 5 feet 5 inches and weight is 210 pounds. GENERAL: Mr. Priyank Foote is a 58-year-old middle-aged obese male, well built, well nourished, not in distress. The patient appears mild shortness of breath, unable to complete full sentence while talking. HEENT: Pupils normally reactive to light and accommodation. Conjunctivae pink. Sclerae anicteric. Tongue is moist, and trachea is midline. LUNGS: Symmetric on both sides. Bilateral breath sounds present. Bilateral basilar crackles present, right more than the left. CARDIOVASCULAR SYSTEM: [place] at the fifth intercostal space and midclavicular line. S1, S2 audible. No murmur, no gallop. ABDOMEN: Normal in appearance. Soft, tympanic. No guarding. No rigidity. No hepatosplenomegaly. Not protuberant. CENTRAL NERVOUS SYSTEM: The patient is alert, awake, and oriented x3. Nonfocal neuro examination. Cranial nerves II through XII grossly intact. Sensory and motor system is within normal limits. EXTREMITIES: No cyanosis, no clubbing. The patient has trace edema to 1+ edema in both lower extremities. The patient also has a scar on the right lower extremity from the previous fem-pop bypass. Dorsalis pedis pulses are palpable. LABORATORY DATA: Include as follows: As of 07/01/2018, WBC 13, hemoglobin 10, hematocrit is 31.2, platelets 244, PT 12.1, PTT 39.4. ABG; pH 7.33, PCO2 of 37, PO2 of 233, bicarb is 20.3, saturation 99.1. Sodium 133, potassium 4.4, chloride 101, CO2 of 20, BUN 71, creatinine 13.4, glucose 255, calcium 8.9, total bili 0.6, AST 23, ALT 18, alkaline phosphatase 112, proBNP 23487 and total protein 8.4, albumin is 4.6. Other reports, chest x-ray as of 07/01/2018, impression right lower lung opacity or infiltrate, mild pulmonary vascular congestion. ASSESSMENT: In summary Mr. Priyank Foote is a 58-year-old middle-aged obese, male with history of longstanding hypertension, diabetes, end-stage renal disease, secondary hyperparathyroidism, peripheral vascular disease, status post femoropopliteal right lower extremity, diabetic retinopathy, deep venous thrombosis, on anticoagulation, who was admitted with a chief complaint of shortness of breath and cough after missing hemodialysis on Sunday with elevated white blood cell count and chest x-ray questionable infiltrates and opacity in the right lower lobe with pulmonary vascular congestion. 1. End-stage renal disease, continue hemodialysis three times a week. 2. Congestive heart failure. 3. Fluid overload secondary to missing hemodialysis. 4. Uncontrolled hypertension secondary to fluid overload and questionable compliance with his blood pressure medicines. 5. Diabetes, uncontrolled. PLAN: We will schedule for hemodialysis today and tomorrow. We will try to ultrafiltrate as much as the patient can tolerate today. The patient was just started hemodialysis around 6 o'clock. We will follow with you. Continues all his blood pressure medications, amlodipine and taper of nitroglycerin once hemodialysis is initiated. Continue Renvela. Continue insulin. Followup Accu-Check. We will follow with you. Thank you for allowing me to participate in your patient's care and advised low-sodium, low-potassium diet and restrict fluids to one liter per day. Paul Collier MD
[2018-07-02] MEDS: Multivitamin Vitamin B Complex (Nephro-Vite) Tab PO SCH (08:34)
[2018-07-02] MEDS: Dorzolamide 2% Ophth Soln OU SCH ×3 (08:36→17:12)
[2018-07-02] MEDS: Insulin Detemir 100 Units/ml Inj SC SCH ×3 (10:03→17:06)
--- NOTE | 2018-07-02 10:56 | CP.PCM.PN ---
Subjective - Date & Time of Evaluation Date of Evaluation: 07/02/18 Time of Evaluation: 10:55 - Subjective Subjective: pt is seen and examined, follow up consult is dictated #[id number] for hd today again to kkep his out pt schedule Objective - Vital Signs/Intake and Output Vital Signs (last 24 hours): Temp Pulse Resp BP Pulse Ox 98.4 F 77 18 172/86 H 93 L 07/02/18 07:47 07/02/18 09:00 07/02/18 07:47 07/02/18 08:33 07/02/18 07:47 - Medications Medications: Current Medications Amlodipine Besylate (Norvasc) 10 mg PO DAILY [facility] Last Admin: 07/02/18 08:33 Dose: 10 mg Apixaban (Eliquis) 2.5 mg PO Q12 [facility]; Protocol Last Admin: 07/02/18 08:33 Dose: 2.5 mg Atorvastatin Calcium (Lipitor) 20 mg PO HS [facility] Last Admin: 07/01/18 23:57 Dose: Not Given Dextrose (Dextrose 50% Inj) 0 ml IV STAT PRN; Protocol PRN Reason: Hypoglycemia Protocol Dextrose (Glutose 15) 0 gm PO ONCE PRN; Protocol PRN Reason: Hypoglycemia Protocol Dorzolamide HCl (Trusopt) 1 drop OU TID [facility] Last Admin: 07/02/18 08:36 Dose: 1 drop Glucagon (Glucagen Diagnostic Kit) 0 mg IM STAT PRN; Protocol PRN Reason: Hypoglycemia Protocol Hydralazine HCl (Apresoline) 25 mg PO TID [facility] Insulin Detemir (Levemir) 25 units SC BID [facility] Last Admin: 07/02/18 10:35 Dose: 25 units Insulin Human Lispro (Humalog) 20 units SC TID [facility] Last Admin: 07/02/18 10:05 Dose: Not Given Insulin Human Lispro (Humalog) 0 units SC ACCU-CHECK [facility]; Protocol Last Admin: 07/02/18 06:32 Dose: 6 units Latanoprost (Xalatan Opht) 1 drop OU HS [facility] Last Admin: 07/01/18 23:57 Dose: Not Given Loperamide HCl (Imodium) 2 mg PO Q8 [facility] Last Admin: 07/02/18 10:34 Dose: Not Given Sevelamer Carbonate (Renvela) 2,400 mg PO WM [facility] Last Admin: 07/02/18 08:35 Dose: 2,400 mg Timolol Maleate (Timoptic 0.5% [facility]) 1 drop OU Q12 [facility] Last Admin: 07/02/18 08:36 Dose: 1 drop Torsemide (Demadex) 5 mg PO DAILY [facility] Last Admin: 07/01/18 09:32 Dose: 5 mg Vitamin B Complex/Vit C/Folic Acid (Nephro-Madhav) 1 tab PO DAILY [facility] Last Admin: 07/02/18 08:34 Dose: 1 tab - Labs Labs: 07/01/18 04:06 07/01/18 04:06 PT 12.1 Seconds (9.8-13.1) 07/01/18 04:00 INR 1.1 07/01/18 04:00 APTT 39.4 Seconds (25.6-37.1) H 07/01/18 04:00
[2018-07-02] MEDS: Latanoprost 0.005% Opht SOUTION OU SCH (21:05)
--- NOTE | 2018-07-03 04:32 | PN ---
DATE: 07/02/2018 FOLLOWUP RENAL CONSULTATION LOCATION: The patient is located in room 405, bed 2. REQUESTED BY: Philippe Downey MD REASON FOR FOLLOWUP: End-stage renal disease and continuation of hemodialysis. SUBJECTIVE: Mr. Priyank Foote is a 58-year-old obese male with a past medical history significant for longstanding hypertension, diabetes, DVT in both lower extremities, peripheral vascular disease, status post right lower extremity fem-pop, end-stage renal disease, secondary hyperparathyroidism, diabetic retinopathy who was admitted yesterday with chief complaints of shortness of breath after missing hemodialysis on Sunday. The patient underwent hemodialysis yesterday, feeling much better today. No chest pain. No palpitation. No fever. No cough. No abdominal pain. No nausea, vomiting, or diarrhea. PHYSICAL EXAMINATION: VITAL SIGNS: As follows: Blood pressure this morning 172/86, pulse 81, respirations 18, temperature 98.4, saturation 93%. Height 5 feet 5 inches. Weight is 210 pounds. BMI 34.9. GENERAL: Mr. Priyank Foote is a 58-year-old middle-aged obese male well built, well nourished, not in distress. HEENT: Pupils normal and reactive to light and accommodation. Conjunctivae pink. Sclerae anicteric. Tongue is moist and trachea is midline. LUNGS: Symmetric on both sides. Bilateral breath sounds present. Occasional basal crackles present. CARDIOVASCULAR SYSTEM: [place] at the fifth intercostal space midclavicular line. S1, S2 audible. No murmur. No gallop. ABDOMEN: Normal in appearance, protuberant, soft, tympanitic. No guarding. No rigidity. No hepatosplenomegaly. CENTRAL NERVOUS SYSTEM: The patient is alert, awake, oriented x3. Nonfocal neuro examination. Cranial nerves II through XII grossly intact. Sensory and motor system is within normal limits. EXTREMITIES: No cyanosis. No clubbing. The patient has trace to 1+ edema in both lower extremities. CURRENT MEDICATIONS: Include as follows: Hydralazine 25 mg p.o. t.i.d., Demadex 5 mg p.o. daily, Humalog 20 units subcutaneous t.i.d., Imodium 2 mg p.o. every 8 hours, Levemir 25 units subcutaneous b.i.d., Lipitor 20 mg p.o. at bedtime, Nephro-Madhav one tablet daily, amlodipine 10 mg daily, Renvela 2.4 g p.o. three times a day with meals, Timoptic eyedrops and Trusopt and also Xalatan eyedrops. LABORATORY DATA: His Accu-Cheks as follows, this morning 252 and 250. ASSESSMENT AND PLAN: In summary, Mr. Priyank Foote is a 58-year-old middle-aged obese male with hypertension, diabetes, end-stage renal disease, peripheral vascular disease, diabetic retinopathy who was admitted with shortness of breath yesterday morning after missing hemodialysis on Sunday when he traveled to [place]. 1. End-stage renal disease. Continue hemodialysis three times a week Sunday, , and Sunday. We will schedule for hemodialysis today to keep his outpatient hemodialysis scheduled. 2. Hypertension. Blood pressure is slightly high. Continue his current medication amlodipine and restrict fluids to 1 liter per day and low-sodium, low-potassium diet. 3. Diabetes. Continue Humalog and Levemir. Continue Nephro-Madhav and Renvela and Zemplar during dialysis three times a week. Hemodialysis order was retained and notified the registered nurse to contact the dialysis nurse for the hemodialysis today. The patient is eager to go back home after dialysis. Thank you for allowing me to participate in your patient's care. Paul Collier MD
[2018-07-03] MEDS ORDERED: Labetalol 5mg/ml (4ml) IVP STA (05:36)
[2018-07-03] MEDS: Insulin Lispro (humaLOG) 100 Units/ml Inj SC SCH ×7 (06:43→17:36)
[2018-07-03 07:48] LABS: MEAN CELL VOLUME 90.8 fl (80.0-94.0); MEAN CORPUSCULAR HEMOGLOBIN 29.4 pg (27.0-31.0); MEAN CORPUSCULAR HGB CONC 32.3 g/dL (33.0-37.0); RBC 3.42 Mil/uL (4.40-5.90); RED CELL DISTRIBUTION WIDTH 17.2 % (11.5-14.5); WHITE BLOOD COUNT 10.8 K/uL (4.8-10.8)
[2018-07-03 08:01] LABS: ALB/GLOB RATIO 1.2 (1.0-2.1); ALBUMIN 4.4 g/dL (3.5-5.0); CALCIUM 9.2 mg/dL (8.4-10.2)
[2018-07-03] MEDS: Dorzolamide 2% Ophth Soln OU SCH ×4 (09:00→17:34)
[2018-07-03] MEDS: Multivitamin Vitamin B Complex (Nephro-Vite) Tab PO SCH (09:48)
[2018-07-03] MEDS: Insulin Detemir 100 Units/ml Inj SC SCH ×3 (09:53→17:36)
--- NOTE | 2018-07-03 10:14 | CP.PCM.DIS ---
<Dmitry Maciel - Last Filed: 07/03/18 15:05> Provider - Provider Date of Admission: 07/01/18 03:23 Attending physician: Philippe Downey Primary care physician: Shady Madden MD Consults: 07/01/18 04:09 Nephrology Consult Stat Comment: Consulting Provider: Paul Collier Consulting Physician: Paul Collier Reason for Consult: ESRD Time Spent in preparation of Discharge (in minutes): 37 Diagnosis - Discharge Diagnosis (1) Respiratory failure Status: Acute (2) Fluid overload Status: Acute (3) CHF (congestive heart failure) Status: Acute (4) End stage renal failure on dialysis Status: Acute (5) HTN (hypertension) Status: Chronic (6) IDDM (insulin dependent diabetes mellitus) Status: Chronic Hospital Course - Lab Results Lab Results: Most Recent Lab Values WBC 10.8 K/uL (4.8-10.8) 07/03/18 07:10 RBC 3.42 Mil/uL (4.40-5.90) L 07/03/18 07:10 Hgb 10.0 g/dL (12.0-18.0) L 07/03/18 07:10 Hct 31.0 % (35.0-51.0) L 07/03/18 07:10 MCV 90.8 fl (80.0-94.0) 07/03/18 07:10 MCH 29.4 pg (27.0-31.0) 07/03/18 07:10 MCHC 32.3 g/dL (33.0-37.0) L 07/03/18 07:10 RDW 17.2 % (11.5-14.5) H 07/03/18 07:10 Plt Count 145 K/uL (130-400) 07/03/18 07:10 MPV 8.5 fl (7.2-11.7) 07/01/18 04:06 Neut % (Auto) 75.9 % (50.0-75.0) H 07/01/18 04:06 Lymph % (Auto) 14.5 % (20.0-40.0) L 07/01/18 04:06 [place] % (Auto) 6.8 % (0.0-10.0) 07/01/18 04:06 Eos % (Auto) 2.0 % (0.0-4.0) 07/01/18 04:06 Baso % (Auto) 0.8 % (0.0-2.0) 07/01/18 04:06 Neut # (Auto) 9.9 K/uL (1.8-7.0) H 07/01/18 04:06 Lymph # (Auto) 1.9 K/uL (1.0-4.3) 07/01/18 04:06 [place] # (Auto) 0.9 K/uL (0.0-0.8) H 07/01/18 04:06 Eos # (Auto) 0.3 K/uL (0.0-0.7) 07/01/18 04:06 Baso # (Auto) 0.1 K/uL (0.0-0.2) 07/01/18 04:06 PT 12.1 Seconds (9.8-13.1) 07/01/18 04:00 INR 1.1 07/01/18 04:00 APTT 39.4 Seconds (25.6-37.1) H 07/01/18 04:00 pCO2 37 mm/Hg (35-45) 07/01/18 06:00 pO2 233 mm/Hg (80-100) H 07/01/18 06:00 HCO3 20.3 mmol/L (21-28) L 07/01/18 06:00 ABG pH 7.33 (7.35-7.45) L 07/01/18 06:00 ABG Total CO2 20.6 mmol/L (22-28) L 07/01/18 06:00 ABG O2 Saturation 99.1 % (95-98) H 07/01/18 06:00 ABG O2 Content 14.2 ML/dL (15-23) L 07/01/18 06:00 ABG Base Excess -5.9 mmol/L (-2.0-3.0) L 07/01/18 06:00 ABG Hemoglobin 10.0 g/dL (11.7-17.4) L 07/01/18 06:00 ABG Carboxyhemoglobin 0.4 % (0.5-1.5) L 07/01/18 06:00 POC ABG HHb (Measured) 0.9 % (0.0-5.0) 07/01/18 06:00 ABG Methemoglobin 1.6 % (0.0-3.0) 07/01/18 06:00 ABG O2 Capacity 14.3 mL/dL (16-24) L 07/01/18 06:00 Reyes Test Yes 07/01/18 06:00 A-a O2 Difference 149.0 mm/Hg 07/01/18 06:00 Hgb O2 Saturation 97.1 % (95.0-98.0) 07/01/18 06:00 Vent Mode Bipap 07/01/18 06:00 FiO2 60.0 % 07/01/18 06:00 Tidal Volume 14 07/01/18 06:00 Inspiratory BiPAP 12 07/01/18 06:00 Expiratory BiPAP 6 07/01/18 06:00 Sodium 140 mmol/l (132-148) 07/03/18 07:10 Potassium 3.4 MMOL/L (3.6-5.0) L 07/03/18 07:10 Chloride 97 mmol/L (98-107) L 07/03/18 07:10 Carbon Dioxide 28 mmol/L (22-30) 07/03/18 07:10 Anion Gap 18 (10-20) 07/03/18 07:10 BUN 33 mg/dl (9-20) H 07/03/18 07:10 Creatinine 7.8 mg/dl (0.8-1.5) H* D 07/03/18 07:10 Est GFR ( Amer) 9 07/03/18 07:10 Est GFR (Non-Af Amer) 7 07/03/18 07:10 POC Glucose (mg/dL) 148 mg/dL (65-110) H 07/03/18 05:35 Random Glucose 132 mg/dL (75-110) H 07/03/18 07:10 Calcium 9.2 mg/dL (8.4-10.2) 07/03/18 07:10 Total Bilirubin 0.7 mg/dl (0.2-1.3) 07/03/18 07:10 AST 31 U/L (17-59) 07/03/18 07:10 ALT 22 U/L (21-72) 07/03/18 07:10 Alkaline Phosphatase 106 U/L (38-126) 07/03/18 07:10 NT-Pro-B Natriuret Pep 57512 pg/ml (0-900) H 07/01/18 04:50 Total Protein 8.2 G/DL (6.3-8.2) 07/03/18 07:10 Albumin 4.4 g/dL (3.5-5.0) 07/03/18 07:10 Globulin 3.7 gm/dL (2.2-3.9) 07/03/18 07:10 Albumin/Globulin Ratio 1.2 (1.0-2.1) 07/03/18 07:10 - Hospital Course Hospital Course: 57 y/o M with a PMHx of IDDM, ESRD (on dialysis , , ), DVT, HTN, HLD and PAD admitted due to acute respiratory distress and CHF exacerbation 2/2 to fluid overload. Pt missed appt for hemodialysis on Sunday. No ill contacts, No recent travel. Also elevated BP noted during admission. Patient was placed on CPAP with improvement of sx. Nephro Dr Collier was on board patient scheduled for emergent HD on Sunday night and also received HD as normal cycle on Sunday. Patient condition improved, and was stable for discharge. BP adjusted with increase of Norvasc to 10 mg daily. Rx sent to his pharmacy. Patient discharged with instructions to f/u PCP in 2-3 days and resume HD next . Discharge Exam - Head Exam Head Exam: NORMAL INSPECTION - Respiratory Exam Respiratory Exam: Clear to PA & Lateral, NORMAL BREATHING PATTERN - Cardiovascular Exam Cardiovascular Exam: REGULAR RHYTHM, +S1, +S2. absent: Tachycardia - GI/Abdominal Exam GI & Abdominal Exam: Normal Bowel Sounds, Soft. absent: Distended, Tenderness - Neurological Exam Neurological exam: Alert, CN II-XII Intact, Oriented x3 - Skin Skin Exam: Dry, Warm Discharge Plan - Discharge Medications Prescriptions: amLODIPine [Norvasc] 10 mg PO DAILY 30 Days #30 tab - Follow Up Plan Condition: GUARDED Disposition: HOME/ ROUTINE Instructions: High Blood Pressure (DC), Chronic Kidney Disease (DC) Additional Instructions: follow up with primary doctor in 1 week continue dialysis [id number] Referrals: [facility] [Outside] Paul Collier MD [Staff Provider] - Shady Madden MD [Primary Care Provider] - <Radha Cordon - Last Filed: 07/03/18 15:12> Provider - Provider Date of Admission: 07/01/18 03:23 Attending physician: Philippe Downey Primary care physician: Shady Madden MD Consults: 07/01/18 04:09 Nephrology Consult Stat Comment: Consulting Provider: Paul Collier Consulting Physician: Paul oCllier Reason for Consult: ESRD Hospital Course - Lab Results Lab Results: Most Recent Lab Values WBC 10.8 K/uL (4.8-10.8) 07/03/18 07:10 RBC 3.42 Mil/uL (4.40-5.90) L 07/03/18 07:10 Hgb 10.0 g/dL (12.0-18.0) L 07/03/18 07:10 Hct 31.0 % (35.0-51.0) L 07/03/18 07:10 MCV 90.8 fl (80.0-94.0) 07/03/18 07:10 MCH 29.4 pg (27.0-31.0) 07/03/18 07:10 MCHC 32.3 g/dL (33.0-37.0) L 07/03/18 07:10 RDW 17.2 % (11.5-14.5) H 07/03/18 07:10 Plt Count 145 K/uL (130-400) 07/03/18 07:10 MPV 8.5 fl (7.2-11.7) 07/01/18 04:06 Neut % (Auto) 75.9 % (50.0-75.0) H 07/01/18 04:06 Lymph % (Auto) 14.5 % (20.0-40.0) L 07/01/18 04:06 [place] % (Auto) 6.8 % (0.0-10.0) 07/01/18 04:06 Eos % (Auto) 2.0 % (0.0-4.0) 07/01/18 04:06 Baso % (Auto) 0.8 % (0.0-2.0) 07/01/18 04:06 Neut # (Auto) 9.9 K/uL (1.8-7.0) H 07/01/18 04:06 Lymph # (Auto) 1.9 K/uL (1.0-4.3) 07/01/18 04:06 [place] # (Auto) 0.9 K/uL (0.0-0.8) H 07/01/18 04:06 Eos # (Auto) 0.3 K/uL (0.0-0.7) 07/01/18 04:06 Baso # (Auto) 0.1 K/uL (0.0-0.2) 07/01/18 04:06 PT 12.1 Seconds (9.8-13.1) 07/01/18 04:00 INR 1.1 07/01/18 04:00 APTT 39.4 Seconds (25.6-37.1) H 07/01/18 04:00 pCO2 37 mm/Hg (35-45) 07/01/18 06:00 pO2 233 mm/Hg (80-100) H 07/01/18 06:00 HCO3 20.3 mmol/L (21-28) L 07/01/18 06:00 ABG pH 7.33 (7.35-7.45) L 07/01/18 06:00 ABG Total CO2 20.6 mmol/L (22-28) L 07/01/18 06:00 ABG O2 Saturation 99.1 % (95-98) H 07/01/18 06:00 ABG O2 Content 14.2 ML/dL (15-23) L 07/01/18 06:00 ABG Base Excess -5.9 mmol/L (-2.0-3.0) L 07/01/18 06:00 ABG Hemoglobin 10.0 g/dL (11.7-17.4) L 07/01/18 06:00 ABG Carboxyhemoglobin 0.4 % (0.5-1.5) L 07/01/18 06:00 POC ABG HHb (Measured) 0.9 % (0.0-5.0) 07/01/18 06:00 ABG Methemoglobin 1.6 % (0.0-3.0) 07/01/18 06:00 ABG O2 Capacity 14.3 mL/dL (16-24) L 07/01/18 06:00 Reyes Test Yes 07/01/18 06:00 A-a O2 Difference 149.0 mm/Hg 07/01/18 06:00 Hgb O2 Saturation 97.1 % (95.0-98.0) 07/01/18 06:00 Vent Mode Bipap 07/01/18 06:00 FiO2 60.0 % 07/01/18 06:00 Tidal Volume 14 07/01/18 06:00 Inspiratory BiPAP 12 07/01/18 06:00 Expiratory BiPAP 6 07/01/18 06:00 Sodium 140 mmol/l (132-148) 07/03/18 07:10 Potassium 3.4 MMOL/L (3.6-5.0) L 07/03/18 07:10 Chloride 97 mmol/L (98-107) L 07/03/18 07:10 Carbon Dioxide 28 mmol/L (22-30) 07/03/18 07:10 Anion Gap 18 (10-20) 07/03/18 07:10 BUN 33 mg/dl (9-20) H 07/03/18 07:10 Creatinine 7.8 mg/dl (0.8-1.5) H* D 07/03/18 07:10 Est GFR ( Amer) 9 07/03/18 07:10 Est GFR (Non-Af Amer) 7 07/03/18 07:10 POC Glucose (mg/dL) 222 mg/dL (65-110) H 07/03/18 10:14 Random Glucose 132 mg/dL (75-110) H 07/03/18 07:10 Calcium 9.2 mg/dL (8.4-10.2) 07/03/18 07:10 Total Bilirubin 0.7 mg/dl (0.2-1.3) 07/03/18 07:10 AST 31 U/L (17-59) 07/03/18 07:10 ALT 22 U/L (21-72) 07/03/18 07:10 Alkaline Phosphatase 106 U/L (38-126) 07/03/18 07:10 NT-Pro-B Natriuret Pep 45565 pg/ml (0-900) H 07/01/18 04:50 Total Protein 8.2 G/DL (6.3-8.2) 07/03/18 07:10 Albumin 4.4 g/dL (3.5-5.0) 07/03/18 07:10 Globulin 3.7 gm/dL (2.2-3.9) 07/03/18 07:10 Albumin/Globulin Ratio 1.2 (1.0-2.1) 07/03/18 07:10 Attending/Attestation - Attestation I have personally seen and examined this patient.: Yes I have fully participated in the care of the patient.: Yes I have reviewed all pertinent clinical information, including history, physical exam and plan: Yes Notes (Text): Acute Hypoxic Respiratory Failure sec to Fluid Overload Fluid Overload due to Missed Hemodialysis Hypertensive Emergency ESRD on HD DM type II on Insulin -Pt placed initially on Bipap -Saturation improved after HD now saturating 98% on Room Air - Pt was also started on Tridil drip then d/c after BP improved -cont Norvasc , Demadex , added Hydralazine and Clonidine - cont Levemir , Accucheck - d/c pt home , cont TIW HD
--- NOTE | 2018-07-03 12:47 | CP.PCM.PN ---
Subjective - Date & Time of Evaluation Date of Evaluation: 07/03/18 Time of Evaluation: 12:46 - Subjective Subjective: pt is seen and examined,follow up consult is dictated #[id number] Objective - Vital Signs/Intake and Output Vital Signs (last 24 hours): Temp Pulse Resp BP Pulse Ox 98.2 F 68 18 141/84 96 07/03/18 11:44 07/03/18 11:44 07/03/18 11:44 07/03/18 11:44 07/03/18 11:44 - Medications Medications: Current Medications Amlodipine Besylate (Norvasc) 10 mg PO DAILY [facility] Last Admin: 07/03/18 09:54 Dose: 10 mg Apixaban (Eliquis) 2.5 mg PO Q12 [facility]; Protocol Last Admin: 07/03/18 09:55 Dose: 2.5 mg Atorvastatin Calcium (Lipitor) 20 mg PO HS [facility] Last Admin: 07/02/18 21:05 Dose: 20 mg Clonidine HCl (Catapres) 0.1 mg PO Q12H [facility] Last Admin: 07/03/18 09:55 Dose: 0.1 mg Dextrose (Dextrose 50% Inj) 0 ml IV STAT PRN; Protocol PRN Reason: Hypoglycemia Protocol Dextrose (Glutose 15) 0 gm PO ONCE PRN; Protocol PRN Reason: Hypoglycemia Protocol Dorzolamide HCl (Trusopt) 1 drop OU TID [facility] Last Admin: 07/03/18 09:57 Dose: 1 drop Glucagon (Glucagen Diagnostic Kit) 0 mg IM STAT PRN; Protocol PRN Reason: Hypoglycemia Protocol Hydralazine HCl (Apresoline) 25 mg PO TID [facility] Last Admin: 07/03/18 09:48 Dose: 25 mg Insulin Detemir (Levemir) 25 units SC BID [facility] Last Admin: 07/03/18 09:54 Dose: 25 units Insulin Human Lispro (Humalog) 20 units SC TID [facility] Last Admin: 07/03/18 09:52 Dose: 20 units Insulin Human Lispro (Humalog) 0 units SC ACCU-CHECK [facility]; Protocol Last Admin: 07/03/18 06:43 Dose: Not Given Latanoprost (Xalatan Opht) 1 drop OU HS [facility] Last Admin: 07/02/18 21:05 Dose: 1 drop Sevelamer Carbonate (Renvela) 2,400 mg PO WM [facility] Last Admin: 07/03/18 09:56 Dose: 2,400 mg Timolol Maleate (Timoptic 0.5% Ophth Soln) 1 drop OU Q12 [facility] Last Admin: 07/03/18 09:59 Dose: 1 drop Torsemide (Demadex) 5 mg PO DAILY [facility] Last Admin: 07/03/18 09:55 Dose: 5 mg Vitamin B Complex/Vit C/Folic Acid (Nephro-Madhav) 1 tab PO DAILY [facility] Last Admin: 07/03/18 09:48 Dose: 1 tab - Labs Labs: 07/03/18 07:10 07/03/18 07:10 PT 12.1 Seconds (9.8-13.1) 07/01/18 04:00 INR 1.1 07/01/18 04:00 APTT 39.4 Seconds (25.6-37.1) H 07/01/18 04:00
[2018-07-03 16:19] VITALS: BP 134/84; PULSE 65; RESP 20; TEMP 98.4; O2SAT 95
--- NOTE | 2018-07-04 08:16 | PN ---
DATE: 07/03/2018 FOLLOWUP RENAL CONSULTATION LOCATION: The patient is located in room 405, bed 2. REQUESTED BY: Philippe Downey MD REASON FOR RENAL CONSULTATION: End-stage renal disease and continuation of hemodialysis. SUBJECTIVE: Mr. Priyank Foote is a 58-year-old middle-aged obese male with history of longstanding hypertension, diabetes, end-stage renal disease, DVT, peripheral vascular disease, status post right fem-pop, who was admitted after missing hemodialysis last week Sunday with a shortness of breath. The patient underwent hemodialysis on Sunday, had ultrafiltration about 3.4 L and also the patient underwent another hemodialysis yesterday, took it as outpatient hemodialysis schedule and ultrafiltration about 2 L. The patient had hemodialysis last night that completed around 2.30 a.m. The patient was complaining feeling tired without sleep. Denies any chest pain, palpitation. Denies any fever, cough. No abdominal pain. No nausea, vomiting, diarrhea. No swelling of the legs. Feeling much better. PHYSICAL EXAMINATION: VITAL SIGNS: As follows: Blood pressure this morning 154/86, pulse 73, respirations 18, temperature 98, saturation 96%. Height 5 feet 5 inches. Weight is 210 pounds. GENERAL: Mr. Priyank Foote is a 58-year-old middle-aged obese male, well built, well nourished, not in acute distress. HEENT: Pupils normal, reactive to light and accommodation. Conjunctivae pink. Sclerae anicteric with poor vision. Tongue is moist and trachea is midline. LUNGS: Symmetric on both sides. Bilateral breath sounds present. Clear to auscultation. CARDIOVASCULAR SYSTEM: [place] at the fifth intercostal space, midclavicular line. S1, S2 audible. No murmur. No gallop. ABDOMEN: Normal in appearance. Soft, tympanitic. No guarding. No rigidity. No hepatosplenomegaly. CENTRAL NERVOUS SYSTEM: The patient is alert, awake, oriented x3. Nonfocal neuro examination. Cranial nerves II-XII grossly intact. Sensory and motor system within normal limits. EXTREMITIES: No cyanosis. No clubbing. No edema. CURRENT MEDICATIONS: Include as follows: Amlodipine, Eliquis, atorvastatin, clonidine, hydralazine, also Renvela, tramadol, Demadex, , Nephro-Madhav. LABORATORY DATA: As follows: As of 07/03/2018; WBC 10.3, hemoglobin 10, hematocrit is 31, platelet is . Sodium 140, potassium 3.4, chloride , CO2 28, BUN 33, creatinine , glucose 132, calcium 9.2. Total protein 8.2, albumin 4.4, total bili 0.7, AST 31, ALT 22, alkaline phosphatase 106. ASSESSMENT AND PLAN: Mr. Priyank Foote is a 58-year-old male with a history of longstanding hypertension, diabetes, diabetic retinopathy with peripheral vascular disease, status post right femoropopliteal surgery and end-stage renal disease, on hemodialysis three times a week, Sunday, and Sunday, missing hemodialysis on Sunday and admitted with shortness of breath. He underwent hemodialysis last night, too early this morning and ultrafiltration about 2 liters. 1. End-stage renal disease. Continue hemodialysis three times a week; Sunday, , and Sunday. The patient is stable from the renal standpoint for discharge today. 2. Hypertension. Blood pressure stable. Continue his current medications hydralazine, amlodipine, and clonidine. 3. Diabetes. Continue his insulin. Stable from the renal standpoint to discharge. Thank you for allowing me to participate in your patient's care. Paul Collier MD
--- NOTE | 2018-07-08 13:38 | PQF ---
PROVIDER RESPONSE TEXT: Acute likely combined systolic and diastolic dysfunction REVIEWER QUERY TEXT: CHF Acuity and Type Congestive Heart Failure is documented in the Medical Record. Please document the type and acuity (in cludes probable or suspected) Such as: Type: -- Systolic -- Diastolic -- Combined -- Other, please specify Acuity: -- Acute -- Chronic -- Acute on chronic -- Other, please specify Also please document the underlying cause of the CHF (includes probable or suspected) The patient's Clinical Indicators include: DOCUMENTATION OF CHF EXACERBATION 2/2 to FLUID OVERLOAD. PT. w/ HTN CHF and ESRD. PLEASE CLARIFY TYPE OF CHF IF KNOWN. Query created by: Ml Zarate on 07/04/2018 4:24 PM Electronically signed by: Radha Cordon MD 07/08/2018 1:35 PM
== END 2018-07-03 19:45 | disposition home health service (06) | DRG 291 ==
LOC: H.ER 02:21 → H.ERHOLD 03:23 → H.TEL 13:52
PROVIDERS: ADMIT Internal Medicine; ATTEND Internal Medicine
PROC: 5A09357 Assistance with Respiratory Ventilation, Less than 24 Consecutive Hours, Continuous Positive Airway Pressure (ICD-10-PCS; 2018-07-01)
PROC: 5A1D70Z Performance of Urinary Filtration, Intermittent, Less than 6 Hours Per Day (ICD-10-PCS; principal; 2018-07-02)
PROC: 5A1D70Z Performance of Urinary Filtration, Intermittent, Less than 6 Hours Per Day (ICD-10-PCS; 2018-07-03)
DX: I13.2 Hypertensive heart and chronic kidney disease with heart failure and with stage 5 chronic kidney disease, or end stage renal disease (principal); N18.6 End stage renal disease; J96.01 Acute respiratory failure with hypoxia; I50.41 Acute combined systolic (congestive) and diastolic (congestive) heart failure; I16.1 Hypertensive emergency; N25.81 Secondary hyperparathyroidism of renal origin; D63.8 Anemia in other chronic diseases classified elsewhere; E11.22 Type 2 diabetes mellitus with diabetic chronic kidney disease; E11.65 Type 2 diabetes mellitus with hyperglycemia; Z91.15 Patient's noncompliance with renal dialysis; D72.829 Elevated white blood cell count, unspecified; Z99.2 Dependence on renal dialysis; E11.319 Type 2 diabetes mellitus with unspecified diabetic retinopathy without macular edema; E11.51 Type 2 diabetes mellitus with diabetic peripheral angiopathy without gangrene; Z79.4 Long term (current) use of insulin; Z86.718 Personal history of other venous thrombosis and embolism; Z89.421 Acquired absence of other right toe(s); E78.5 Hyperlipidemia, unspecified; E78.00 Pure hypercholesterolemia, unspecified; Z79.01 Long term (current) use of anticoagulants; Z87.891 Personal history of nicotine dependence; H54.7 Unspecified visual loss